=== PATIENT | male | born 1930 | race Caucasian/White ===

== ENCOUNTER 2016-09-05 11:08 | Day surgery (SDC) | payer OTHER, MEDICAID ==
[2016-09-05] MEDS ORDERED: D5 LR 1000 ML 1,000 ML IV ONE (11:15)
[2016-09-05] MEDS ORDERED: DIPRIVAN VIAL 20 ML ONE (11:33)
[2016-09-05 14:04] VITALS: BP 120/60
== END 2016-09-05 12:08 | disposition home or self-care (01) ==
LOC: SURG1 11:08
PROVIDERS: ATTEND Internal Medicine Gastroenterology
PROC: 0DB68ZX Excision of Stomach, Via Natural or Artificial Opening Endoscopic, Diagnostic (ICD-10-PCS; principal; 2016-09-05 14:00)
PROC: 0D757ZZ Dilation of Esophagus, Via Natural or Artificial Opening (ICD-10-PCS; principal; 2016-09-05 14:00)
PROC: 0DJ08ZZ Inspection of Upper Intestinal Tract, Via Natural or Artificial Opening Endoscopic (ICD-10-PCS; principal; 2016-09-05 14:00)
DX: R13.19 Other dysphagia (principal); R10.13 Epigastric pain; K21.9 Gastro-esophageal reflux disease without esophagitis; K22.2 Esophageal obstruction; K44.9 Diaphragmatic hernia without obstruction or gangrene; K29.60 Other gastritis without bleeding; R11.0 Nausea
CPT/HCPCS: 99100; A4217; J3490; J7120

== ENCOUNTER → 2016-10-18 | Outpatient (CLI) | payer OTHER, MEDICAID ==
--- NOTE | 2016-10-18 15:19 | VAS ---
HISTORY: Weakness, vertigo Study: Carotid sonogram Comparison: None Technique: Multiple jane scale and color flow Doppler images of the right and left carotid arterial system were obtained. The vertebral arterial system was evaluated as well. Findings: Mild plaque is present at both carotid bifurcations. Normal color flow Doppler is seen throughout th e right and left carotid arterial system. No hemodynamically significant stenosis is seen based on velocity criteria. The right and left vertebral arteries demonstrate antegrade flow. IMPRESSION: 1. No hemodynamically significant stenosis. Reported By:
== END ==
LOC: RAD 11:57
PROVIDERS: ATTEND Internal Medicine
DX: R42 Dizziness and giddiness (principal); R06.02 Shortness of breath; I20.8 Other forms of angina pectoris
CPT/HCPCS: 93005; 93010; 93880

== ENCOUNTER → 2016-10-24 | Outpatient (CLI) | payer OTHER, MEDICAID | LOC: RAD 13:39 | PROVIDERS: ATTEND Internal Medicine | DX: I20.8 Other forms of angina pectoris (principal) | CPT/HCPCS: 93306 ==

== ENCOUNTER → 2016-11-18 | Outpatient (CLI) | payer OTHER, MEDICAID | LOC: RAD 09:28 | PROVIDERS: ATTEND Internal Medicine | DX: I20.8 Other forms of angina pectoris (principal); R06.02 Shortness of breath | CPT/HCPCS: 78452; 93017; A9502 ==

== ENCOUNTER → 2017-03-05 | Outpatient (CLI) | payer OTHER, MEDICAID ==
--- NOTE | 2017-03-11 10:41 | VAS ---
HISTORY: Peripheral vascular disease Study: Bilateral lower extremity arterial pressure and waveform analysis Comparison: None Findings: Normal ABIs are observed. An ARMIN of 1.06 is observed on the right. ARMIN of 0.95 is observed on the l eft. IMPRESSION: Normal ABIs as above. Reported By:
== END ==
LOC: RAD 15:24
PROVIDERS: ATTEND Internal Medicine
DX: I73.89 Other specified peripheral vascular diseases (principal)
CPT/HCPCS: 93925

== ENCOUNTER → 2017-03-10 | Outpatient (CLI) | payer OTHER, MEDICAID ==
--- NOTE | 2017-03-10 16:17 | RAD ---
Indication: Cough . Exam: PA and lateral chest . Comparison: 04/18/2015 Findings: The heart is normal. The pulmonary vessels are normal. The lungs are mildly hyperinflated b ut clear. Moderate degenerative changes are seen throughout the spine. Impression: Stable chest with no acute abnormality seen. Reported By:
== END ==
LOC: RAD 15:01
PROVIDERS: ATTEND Internal Medicine
DX: R50.9 Fever, unspecified (principal); R05 Cough; R09.89 Other specified symptoms and signs involving the circulatory and respiratory systems; J06.9 Acute upper respiratory infection, unspecified
CPT/HCPCS: 36415; 71020; 80053; 85025; 87040

== ENCOUNTER 2019-03-24 11:48 | Inpatient (IN) ==
[2019-03-24] MEDS ORDERED: TUSSIONEX PENNKINETIC SUSP PO PRN (15:04)
[2019-03-24] MEDS: XOPENEX 1.25 MG/3 ML NEBULE NEB SCH (15:20)
[2019-03-24] MEDS ORDERED: SALINE 3% 15 ML NEB TX NEB ONE (15:20)
[2019-03-24 15:49] LABS: BASOPHILS # (AUTO) 0.1 X10^3/uL (0.0-0.1); BASOPHILS % (AUTO) 0.4 % (0.2-1.0); EOSINOPHILS # (AUTO) 1.2 x10^3/uL (0.0-0.2); EOSINOPHILS % (AUTO) 5.1 % (0.9-2.9); HEMATOCRIT 33.1 % (42.0-54.0); HEMOGLOBIN 10.8 g/dL (13.5-18.0); LYMPHOCYTES # (AUTO) 2.2 X10^3/uL (1.3-2.9); LYMPHOCYTES % (AUTO) 9.6 % (21.0-51.0); MEAN CORPUSCULAR HEMOGLOBIN 30.1 pg (27.0-34.0); MEAN CORPUSCULAR HGB CONC 32.6 g/dL (33.0-35.0); MEAN CORPUSCULAR VOLUME 92.2 fL (80.0-100.0); MEAN PLATELET VOLUME 7.3 fL (7.4-11.0); MONOCYTES # (AUTO) 1.7 x10^3/uL (0.3-0.8); MONOCYTES % (AUTO) 7.4 % (0.0-13.0); NEUTROPHILS # (AUTO) 17.9 x10^3/uL (2.2-4.8); NEUTROPHILS % (AUTO) 77.5 % (42.0-75.0); PLATELET COUNT 351 X10^3/uL (150.0-450.0); RED BLOOD COUNT 3.59 X10^6/uL (4.7-6.0); RED CELL DISTRIBUTION WIDTH 16.4 % (11.6-16.5); WHITE BLOOD COUNT 23.1 X10^3/uL (3.6-10.0)
[2019-03-24] MEDS ORDERED: NS 1/2 1000 ML IV 1,000 ML IV ONE (15:50)
[2019-03-24] MEDS: FORTAZ or TAZICEF VIAL INJ 1 G in NS 100 ML IV + SPIKE MINIBAG* 100 ML IV SCH ×2 (15:55→20:59)
[2019-03-24] MEDS: NS 1/2 1000 ML IV 1,000 ML IV SCH (15:55)
[2019-03-24] MEDS: VSL#3 PO SCH (15:55)
[2019-03-24] MEDS: ROBITUSSIN DM PO SCH ×3 (15:55→20:46)
[2019-03-24 16:00] LABS: ALANINE AMINOTRANSFERASE 13 Units/L (12-78); ALBUMIN 2.5 g/dL (3.4-5.0); ALKALINE PHOSPHATASE 121 Units/L (46-116); ASPARTATE AMINO TRANSFERASE 18 Units/L (15-37); BLOOD UREA NITROGEN 37 mg/dL (7-18); CALCIUM 8.2 mg/dL (8.5-10.1); CARBON DIOXIDE 26.2 mmol/L (21-32); CHLORIDE 105 mmol/L (98-107); COR CA(FOR HYPOALB) 9.4 mg/dL (8.5-10.1); CREATININE 2.12 mg/dL (0.70-1.30); SODIUM 140 mmol/L (136-145); TOTAL PROTEIN 7.1 g/dL (6.4-8.2); eGFR NON BLACK RACES 31 (>60)
--- NOTE | 2019-03-24 16:21 | RAD ---
HISTORYC/C, CHEST PAINSTUDYCHEST, 1 VIEWCOMPARISONChest x-ray dated March 23, 2019.FINDINGSThe trachea is midline. The cardiac silhouette is unremarkable. Right lower lobe pneumonia with associated parapneumonic effusion appears unchanged given technique.. No obvious pneumothorax. Chronic emphysematous changes. The bony thorax is unremarkable.IMPRESSIONNo significant change.Electronically signed by: HE NARVAEZ (Mar 24, 2019 16:20:25)
[2019-03-24 16:30] LABS: BAND NEUTROPHILS % 2 % (0-10); PLATELET MORPHOLOGY COMMENT NORMAL (NORMAL)
[2019-03-24 18:12] VITALS: BMI 26.6
[2019-03-24] MEDS ORDERED: PHARMACY CONSULT LTC MEDICATIONS XX SCH (19:00)
[2019-03-25] MEDS: XOPENEX 1.25 MG/3 ML NEBULE NEB SCH ×4 (01:03→17:56)
[2019-03-25 05:40] LABS: BASOPHILS # (AUTO) 0.1 X10^3/uL (0.0-0.1); BASOPHILS % (AUTO) 0.4 % (0.2-1.0); EOSINOPHILS # (AUTO) 0.9 x10^3/uL (0.0-0.2); EOSINOPHILS % (AUTO) 5.7 % (0.9-2.9); HEMATOCRIT 31.4 % (42.0-54.0); HEMOGLOBIN 10.2 g/dL (13.5-18.0); LYMPHOCYTES # (AUTO) 1.7 X10^3/uL (1.3-2.9); LYMPHOCYTES % (AUTO) 10.3 % (21.0-51.0); MEAN CORPUSCULAR HEMOGLOBIN 29.7 pg (27.0-34.0); MEAN CORPUSCULAR HGB CONC 32.5 g/dL (33.0-35.0); MEAN CORPUSCULAR VOLUME 91.5 fL (80.0-100.0); MEAN PLATELET VOLUME 7.4 fL (7.4-11.0); MONOCYTES # (AUTO) 1.3 x10^3/uL (0.3-0.8); MONOCYTES % (AUTO) 8.3 % (0.0-13.0); NEUTROPHILS # (AUTO) 12.2 x10^3/uL (2.2-4.8); NEUTROPHILS % (AUTO) 75.3 % (42.0-75.0); PLATELET COUNT 342 X10^3/uL (150.0-450.0); RED BLOOD COUNT 3.43 X10^6/uL (4.7-6.0); RED CELL DISTRIBUTION WIDTH 15.6 % (11.6-16.5); WHITE BLOOD COUNT 16.1 X10^3/uL (3.6-10.0)
[2019-03-25 06:05] LABS: ALBUMIN 2.1 g/dL (3.4-5.0); CALCIUM 8.2 mg/dL (8.5-10.1); CARBON DIOXIDE 26.2 mmol/L (21-32); COR CA(FOR HYPOALB) 9.7 mg/dL (8.5-10.1); CREATININE 1.83 mg/dL (0.70-1.30); TOTAL PROTEIN 6.6 g/dL (6.4-8.2)
[2019-03-25] MEDS ORDERED: NS 1/2 1000 ML IV 1,000 ML IV ONE (06:07)
[2019-03-25] MEDS: FORTAZ or TAZICEF VIAL INJ 1 G in NS 100 ML IV + SPIKE MINIBAG* 100 ML IV SCH (06:35)
[2019-03-25] MEDS: NS 1/2 1000 ML IV 1,000 ML IV SCH ×2 (06:35→21:25)
[2019-03-25] MEDS ORDERED: K-RIDER 10 MEQ/NS 100 ML 10 MEQ/100 ML BAG IV PRN (06:52)
[2019-03-25] MEDS ORDERED: KLOR-CON PO PRN (06:52)
[2019-03-25] MEDS ORDERED: POTASSIUM CHL 40 MEQ/NS 0.45% 500 ML IV PRN (06:52)
[2019-03-25] MEDS ORDERED: MICRO K EXTEN CAP 10 MEQ PO PRN (06:52)
[2019-03-25] MEDS ORDERED: POTASSIUM CHLORIDE LIQ 20 MEQ UDC PO PRN (06:52)
[2019-03-25] MEDS ORDERED: POTASSIUM CHL 60 MEQ/NS 0.45% 500 ML IV PRN (06:52)
[2019-03-25] MEDS ORDERED: K-DUR TAB 20 MEQ PO PRN (06:52)
--- NOTE | 2019-03-25 08:54 | DR.H&P ---
H&P - History & Physical for Day of: H&P Date: 03/24/19 - Chief Complaint Chief Complaint: COUGH, SOB - History of Present Illness History of Present Illness: IS A 88 YEAR OLD PATIENT OF OURS. HE IS A RESIDENT OF [facility]. HE WAS A DIRECT ADMISSION TO THE HOSPITAL FOR BRONCHOPNEUMONIA. OUTPATIENT CHEST XRAY WAS OBTAINED AND REVEALED: Right lower lobe bronchopneumonia with a moderate-sized parapneumonic effusion.. Ra diographic follow-up in 6-8 weeks is recommended to ensure resolution and exclude underlying neoplastic process. Questionable acute bronchitis within the left lung base. ON ADMISSION, LABS WERE OBTAINED. ABNORMAL LAB VALUES INCLUDE THE FOLLOWING: WBC 23.1, RBC 3.59, HGB 10.8, HCT 33.1, BUN 37, CREATININE 2.12, GLUCOSE 105, CALCIUM 8.2, ALK PHOS 121, ALBUMIN 2.5, GLOBULIN 4.6. BLOOD AND SPUTUM CULTURES WERE OBTAINED. HE WAS STARTED ON 1/2NS AT 75ML/HR, IV FORTAZ, TUSSIONEX, ROBITUSSION, RESPIRATORY TX, AND SUPPLEMENTAL OXYGEN. WE PLAN TO FOLLOW UP WITH AM LABS AND CHEST XRAY AND CONTINUE TO MONITOR. - Past Medical History Past Medical History: Anemia ([place]), Arthritis, Hypertension - Past Surgical History Surgical History: Cholecystectomy, Joint Replacement, Other - Family History Family Medical History: Hypertension - Social History Does patient currently use any type of tobacco product: No Have you used tobacco products in the last 12 months: No Type of Tobacco Use: Cigarettes How many years tobacco product used: 1 Does any household member use tobacco: No Alcohol Use: None Drug Use: None Prescription drug monitoring program results: PDMP was not reviewed - Medications Home Medications: ciprofloxacin Allergy (Verified 03/24/19 15:07) doxycycline Allergy (Verified 03/24/19 15:07) levofloxacin [From Levaquin] Allergy (Verified 03/24/19 15:07) meloxicam [From Mobic] Allergy (Verified 03/24/19 15:07) CONTINUE taking the following medications alprazolam [Xanax] 0.25 mg PO DAILY 03/24/19 [History] amitriptyline 25 mg PO QHS 03/24/19 [History] anastrozole [Arimidex] 1 mg PO DAILY 03/24/19 [History] biotin 1 mg PO DAILY 03/24/19 [History] budesonide [Pulmicort] 2 ml INHALATION TID 03/24/19 [History] budesonide-formoterol [Symbicort] 2 puff INHALATION BID 03/24/19 [History] buspirone 5 mg PO DAILY 03/24/19 [History] carboxymethylcellulose sodium [Refresh Tears] 1 drp OPHTHALMIC (EYE) BID 03/24/19 [History] diclofenac sodium [Voltaren] 1 % TOPICAL TID 03/24/19 [History] docusate sodium [Colace] 100 mg PO BID 03/24/19 [History] escitalopram oxalate [Lexapro] 5 mg PO DAILY 03/24/19 [History] ferrous fumarate 324 mg PO DAILY 03/24/19 [History] fluticasone propionate [Flonase Allergy Relief] 1 spray INTRANASAL Q12H PRN 03/24/19 [History] gabapentin [Neurontin] 300 mg PO QHS 03/24/19 [History] guaifenesin [Mucinex] 600 mg PO BID 03/24/19 [History] ipratropium-albuterol 3 ml INHALATION Q6H PRN 03/24/19 [History] meclizine 25 mg PO Q6H PRN 03/24/19 [History] montelukast [Singulair] 10 mg PO QHS 03/24/19 [History] multivitamin,tx-minerals [Multi-Vitamin HP/Minerals] 1 cap PO BID 03/24/19 [History] naproxen 500 mg PO BID 03/24/19 [History] baiuigxr-irdnweessRq-hwrgawzaL [Triple Antibiotic] 1 applic TOPICAL BID PRN 03/24/19 [History] pramipexole [Mirapex] 0.25 mg PO TID 03/24/19 [History] tizanidine [Zanaflex] 4 mg PO QHS 03/24/19 [History] - Review of Systems Constitutional: No Symptoms Reported Eyes: No Symptoms Reported ENT: No Symptoms Reported Respiratory: See HPI, Cough, Shortness of Breath, Wheezing Cardiovascular: No Symptoms Reported Gastrointestinal: No Symptoms Reported Genitourinary: No Symptoms Reported Musculoskeletal: No Symptoms Reported Skin: No Symptoms Reported Neurological: No Symptoms Reported - Physical Exam Vital Signs: Temperature 97.9 F Pulse Rate [Right Brachial] 90 Pulse Rate 81 Respiratory Rate 20 Blood Pressure [Right Arm] 107/59 Blood Pressure [Left Arm] 132/69 Blood Pressure 120/60 O2 Sat by Pulse Oximetry 96 Oriented: Normal Eyes: Normal Ear: Normal Nose: Normal Throat: Normal Respiratory: Wheezes Throughout Cardiovascular: Normal. negative: S3, S4, Murmur : Normal Auscultation: Bowel Sounds: Normal Palpation: Normal Tenderness: Normal Skin: Normal Musculoskeletal: Normal Psychiatric: Normal Mood Description: Calm Affect: Normal Speech Pattern: Clear - Assessment/Plan (1) Bronchopneumonia Status: Acute Plan: 1/2NS AT 75ML/HR, IV FORTAZ, TUSSIONEX, ROBITUSSION, RESPIRATORY TX, AND SUPPLEMENTAL OXYGEN - Allergies Allergies/Adverse Reactions: Allergies Allergy/AdvReac Type Severity Reaction Status Date / Time ciprofloxacin Allergy Verified 03/24/19 15:07 doxycycline Allergy Verified 03/24/19 15:07 levofloxacin [From Levaquin] Allergy Verified 03/24/19 15:07 meloxicam [From Mobic] Allergy Verified 03/24/19 15:07
[2019-03-25] MEDS: ROBITUSSIN DM PO SCH ×4 (08:55→20:42)
[2019-03-25] MEDS: VSL#3 PO SCH (08:55)
[2019-03-25] MEDS ORDERED: FORTAZ or TAZICEF VIAL INJ 1 G in NS 100 ML IV + SPIKE MINIBAG* 100 ML IV SCH (09:00)
--- NOTE | 2019-03-25 09:50 | RAD ---
HISTORYBRONCHOPNEUMONIASTUDYCHEST, 1 [id number]/18/2019.FINDINGSThe trachea is midline. The cardiac silhouette is enlarged with atherosclerotic calcification and uncoiling of the aortic arch.. There are emphysematous changes present involving both lungs. Left lung is clear. There is still a dense infiltrate present involving the right middle and lower lobe regions with parapneumonic effusion. This is not changed significantly compared to the prior study.. The bony thorax is unremarkable.IMPRESSIONRight middle and lower lobe infiltrates which appear dense with right parapneumonic effusion. The findings are unchanged from prior studies. Emphysematous changes are present bilaterally.Hypertensive configuration.Electronically signed by: ALIN CHOE (Mar 25, 2019 09:49:49)
[2019-03-25] MEDS ORDERED: ULTRAM PO PRN (10:18)
[2019-03-25] MEDS ORDERED: ANTIVERT TAB 25 MG PO PRN (10:18)
[2019-03-25] MEDS ORDERED: BIOTIN 1 MG PO SCH (10:30)
[2019-03-25] MEDS ORDERED: PULMICORT NEB TX 0.5 MG NEB SCH (10:30)
[2019-03-25] MEDS ORDERED: PATIENT'S HOME MEDICATION (Carboxymethylcellulose Sodium [Refresh Tears] 1 DROP) OP SCH (10:30)
[2019-03-25] MEDS: MUCOMYST 20% 200 MG/ML NEB SCH ×2 (12:16→17:56)
[2019-03-25] MEDS ORDERED: LEXAPRO ONE (12:37)
[2019-03-25] MEDS: FLONASE NASAL SPRAY ENOSTRIL SCH ×2 (12:42→20:43)
[2019-03-25] MEDS: MIRALAX POWDER (1 DOSE 17 G) PO SCH (12:42)
[2019-03-25] MEDS: MUCINEX DM PO SCH ×2 (12:43→20:42)
[2019-03-25] MEDS: FERROUS GLUCONATE PO SCH (12:43)
[2019-03-25] MEDS: ELAVIL PO SCH ×2 (12:43→20:41)
[2019-03-25] MEDS: BUSPAR PO SCH (12:43)
[2019-03-25] MEDS: SINGULAIR TAB 10 MG PO SCH ×2 (12:44→20:41)
[2019-03-25] MEDS: LEXAPRO PO SCH (12:44)
[2019-03-25] MEDS: ARIMIDEX PO SCH (12:44)
[2019-03-25] MEDS: NAPROSYN PO SCH ×2 (12:44→20:42)
[2019-03-25] MEDS: COLACE CAP 100 MG PO SCH ×2 (12:44→20:42)
[2019-03-25] MEDS: EXELON PO SCH ×2 (12:45→20:42)
[2019-03-25] MEDS: ZOSYN VIAL 4.5 GRAMS 4.5 G in NS 100 ML IV + SPIKE MINIBAG* 100 ML IV SCH ×3 (12:46→21:24)
[2019-03-25] MEDS: NEURONTIN CAP 300 MG PO SCH ×2 (12:46→20:41)
[2019-03-25] MEDS ORDERED: MUCOMYST 20% 200 MG/ML NEB SCH (13:00)
[2019-03-25] MEDS: LOPRESSOR TAB 25 MG PO SCH ×2 (13:14→20:41)
[2019-03-25] MEDS: ZANAFLEX PO SCH ×2 (13:29→20:41)
[2019-03-25] MEDS: MIRAPEX TAB 0.25 MG PO SCH ×2 (14:00→21:24)
[2019-03-25] MEDS: XANAX PO SCH (14:00)
[2019-03-25] MEDS: LOVENOX INJ 40 MG SYR SC SCH (14:00)
[2019-03-25] MEDS: VOLTAREN 1 % GEL MULTI DOSE TUBE TOP SCH ×3 (15:21→21:24)
[2019-03-25] MEDS: PULMICORT NEB TX 0.5 MG NEB SCH (21:32)
[2019-03-26] MEDS: XOPENEX 1.25 MG/3 ML NEBULE NEB SCH ×4 (00:47→17:09)
[2019-03-26] MEDS: MUCOMYST 20% 200 MG/ML NEB SCH ×4 (00:48→17:09)
[2019-03-26] MEDS: ZOSYN VIAL 4.5 GRAMS 4.5 G in NS 100 ML IV + SPIKE MINIBAG* 100 ML IV SCH ×3 (05:04→21:50)
[2019-03-26] MEDS: MIRAPEX TAB 0.25 MG PO SCH ×3 (05:04→21:47)
[2019-03-26] MEDS: VOLTAREN 1 % GEL MULTI DOSE TUBE TOP SCH ×4 (05:06→21:51)
[2019-03-26] MEDS ORDERED: NS 1/2 1000 ML IV 1,000 ML IV ONE (05:09)
[2019-03-26] MEDS: NS 1/2 1000 ML IV 1,000 ML IV SCH ×2 (05:09→21:41)
[2019-03-26 05:56] LABS: BASOPHILS # (AUTO) 0.1 X10^3/uL (0.0-0.1); BASOPHILS % (AUTO) 0.4 % (0.2-1.0); EOSINOPHILS # (AUTO) 1.2 x10^3/uL (0.0-0.2); EOSINOPHILS % (AUTO) 8.8 % (0.9-2.9); HEMATOCRIT 30.4 % (42.0-54.0); LYMPHOCYTES # (AUTO) 1.6 X10^3/uL (1.3-2.9); MEAN CORPUSCULAR HEMOGLOBIN 30.2 pg (27.0-34.0); MEAN CORPUSCULAR HGB CONC 32.9 g/dL (33.0-35.0); MEAN CORPUSCULAR VOLUME 91.9 fL (80.0-100.0); MONOCYTES # (AUTO) 1.2 x10^3/uL (0.3-0.8); MONOCYTES % (AUTO) 8.9 % (0.0-13.0); NEUTROPHILS # (AUTO) 9.2 x10^3/uL (2.2-4.8); NEUTROPHILS % (AUTO) 69.9 % (42.0-75.0); PLATELET COUNT 313 X10^3/uL (150.0-450.0); RED BLOOD COUNT 3.31 X10^6/uL (4.7-6.0); RED CELL DISTRIBUTION WIDTH 16.1 % (11.6-16.5); WHITE BLOOD COUNT 13.1 X10^3/uL (3.6-10.0)
[2019-03-26 06:09] LABS: CALCIUM 8.1 mg/dL (8.5-10.1); CARBON DIOXIDE 25.2 mmol/L (21-32); COR CA(FOR HYPOALB) 9.7 mg/dL (8.5-10.1); CREATININE 1.7 mg/dL (0.70-1.30); TOTAL PROTEIN 6.5 g/dL (6.4-8.2)
[2019-03-26] MEDS ORDERED: LEXAPRO ONE (08:33)
[2019-03-26] MEDS: MIRALAX POWDER (1 DOSE 17 G) PO SCH (08:57)
[2019-03-26] MEDS: VSL#3 PO SCH (08:58)
[2019-03-26] MEDS: MUCINEX DM PO SCH ×2 (08:59→21:45)
[2019-03-26] MEDS: LOVENOX INJ 40 MG SYR SC SCH (08:59)
[2019-03-26] MEDS: ROBITUSSIN DM PO SCH ×4 (08:59→21:45)
[2019-03-26] MEDS: EXELON PO SCH ×2 (08:59→21:45)
[2019-03-26] MEDS: COLACE CAP 100 MG PO SCH ×2 (08:59→21:42)
[2019-03-26] MEDS: BUSPAR PO SCH (09:00)
[2019-03-26] MEDS: LEXAPRO PO SCH (09:00)
[2019-03-26] MEDS: XANAX PO SCH (09:01)
[2019-03-26] MEDS: LOPRESSOR TAB 25 MG PO SCH ×2 (09:01→21:45)
[2019-03-26] MEDS: NAPROSYN PO SCH ×2 (09:01→21:45)
[2019-03-26] MEDS: FLONASE NASAL SPRAY ENOSTRIL SCH ×2 (09:02→21:49)
[2019-03-26] MEDS: FERROUS GLUCONATE PO SCH (09:02)
[2019-03-26] MEDS: ARIMIDEX PO SCH (09:02)
[2019-03-26] MEDS: PULMICORT NEB TX 0.5 MG NEB SCH ×2 (09:39→20:35)
--- NOTE | 2019-03-26 09:44 | RAD ---
HISTORYSOBSTUDYCHEST, 1 [id number]/19/2019.FINDINGSThe trachea is midline. The heart is enlarged with aortic uncoiling. Left lung is clear.. There is improving aeration seen in right middle and lower lobe regions. There is still considerable dense atelectasis or infiltrate present. A small right-sided pleural effusion may be present. Right upper lobe is clear. The bony thorax is unremarkable.IMPRESSIONImproving aeration seen in the right middle and lower lobe regions. There is still considerable dense atelectasis or infiltrate present.Cardiac enlargement with aortic uncoiling.Electronically signed by: ALIN CHOE (Mar 26, 2019 09:43:21)
--- NOTE | 2019-03-26 11:00 | PCM.PROG ---
Progress Note - Progress Note for Day of Date of Exam: 03/26/19 - Subjective Subjective: IS BEING TREATED FOR PNEUMONIA. TODAY, HE IS ALERT AND ORIENTED, SITTING ON THE SIDE OF THE BED ON MORNING ROUNDS. HE CONTINUES WITH COUGH AND SHORTNESS OF BREATH. ON EXAMINATION, HEART IS REGULAR IN RATE AND RHYTHM. BILATERAL LUNGS ARE NOTED WITH SCATTERED WHEEZING. ABDOMEN IS ROUND, SOFT, AND NON-TENDER WITH NORMAL BOWEL SOUNDS NOTED IN ALL QUADRANTS. HIS VITALS THIS MORNING ARE: 97.9-80-20-100%-143/66. LABS WERE OBTAINED. ABNORMAL LAB VALUES INCLUDE THE FOLLOWING: WBC 13.1, RBC 3.31, HGB 10.0, HCT 30.4, BUN 28, CREATININE 1.70, GLUCOSE 120, CALCIUM 8.1, ALT 11, ALBUMIN 2.0. BLOOD CULTURES ARE PENDING. SPUTUM CULTURE REVEALED GROWTH OF STAPHYLOCOCCUS AUREUS. A CHEST XRAY WAS OBTAINED AND REVEALED: Improving aeration seen in the right middle and lower lobe regions. There is still considerable dense atelectasis or infiltrate present. Cardiac enlargement with aortic uncoiling. HE IS CURRENTLY RECIVING IV ZOSYN, RESPIRATORY TX, SUPPLEMENTAL OXYGEN, AND HOME MEDICATIONS WERE RESUMED. WE WILL CONTINUE WITH CURRENT PLAN OF CARE TODAY. OTHERWISE, WE PLAN TO FOLLOW UP WITH AM LABS AND CHEST XRAY AND CONTINUE TO MONITOR. - Past Medical Family Social History Past Med/Fam/Surg Hx: No changes since H&P Allergies: Allergies ciprofloxacin Allergy (Verified 03/24/19 15:07) doxycycline Allergy (Verified 03/24/19 15:07) levofloxacin [From Levaquin] Allergy (Verified 03/24/19 15:07) meloxicam [From Mobic] Allergy (Verified 03/24/19 15:07) - Review of Systems ROS: No change since H&P - Vital Signs and I&O's Vital Signs: Temperature 97.9 F Pulse Rate [Right Brachial] 80 Pulse Rate 80 Respiratory Rate 20 Blood Pressure [Right Arm] 143/66 Blood Pressure [Left Arm] 132/69 Blood Pressure 120/60 O2 Sat by Pulse Oximetry 99 Intake and Output: Intake & Output 03/23/19 03/24/19 03/25/19 03/26/19 11:59 11:59 11:59 11:59 Intake Total 1642 / 1642 2325 / 2325 Output Total 0 / 0 Balance 1642 / 1642 2325 / 2325 - Physical Exam Oriented: Normal Eyes: Normal Ear: Normal Nose: Normal Throat: Normal Respiratory: Generalized, Wheezes Cardiovascular: Normal. negative: S3, S4, Murmur : Normal Auscultation: Bowel Sounds: Normal Tenderness: Normal Skin: Normal Musculoskeletal: Normal Psychiatric: Normal Mood Description: Calm Affect: Normal Speech Pattern: Clear, Appropriate - Laboratory and Diagnostics Result Diagrams: 03/26/19 05:42 03/26/19 05:42 Labs: 03/24/19 15:25 Sputum - Expectorated Sputum Sputum Culture - Preliminary Staphylococcus Aureus 03/24/19 15:25 Sputum - Expectorated Sputum - Final Laboratory WBC 13.1 X10^3/uL (3.6-10.0) H 03/26/19 05:42 RBC 3.31 X10^6/uL (4.7-6.0) L 03/26/19 05:42 Hgb 10.0 g/dL (13.5-18.0) L 03/26/19 05:42 Hct 30.4 % (42.0-54.0) L 03/26/19 05:42 MCV 91.9 fL (80.0-100.0) 03/26/19 05:42 MCH 30.2 pg (27.0-34.0) 03/26/19 05:42 MCHC 32.9 g/dL (33.0-35.0) L 03/26/19 05:42 RDW 16.1 % (11.6-16.5) 03/26/19 05:42 Plt Count 313 X10^3/uL (150.0-450.0) 03/26/19 05:42 Plt Count Comment Adequate (ADEQUATE) 03/24/19 15:30 MPV 7.0 fL (7.4-11.0) L 03/26/19 05:42 Neut % (Auto) 69.9 % (42.0-75.0) 03/26/19 05:42 Lymph % (Auto) 12.0 % (21.0-51.0) L 03/26/19 05:42 [place] % (Auto) 8.9 % (0.0-13.0) 03/26/19 05:42 Eos % (Auto) 8.8 % (0.9-2.9) H 03/26/19 05:42 Baso % (Auto) 0.4 % (0.2-1.0) 03/26/19 05:42 Neut # (Auto) 9.2 x10^3/uL (2.2-4.8) H 03/26/19 05:42 Lymph # (Auto) 1.6 X10^3/uL (1.3-2.9) 03/26/19 05:42 [place] # (Auto) 1.2 x10^3/uL (0.3-0.8) H 03/26/19 05:42 Eos # (Auto) 1.2 x10^3/uL (0.0-0.2) H 03/26/19 05:42 Baso # (Auto) 0.1 X10^3/uL (0.0-0.1) 03/26/19 05:42 Absolute Nucleated RBC 0.0 /100WBC 03/26/19 05:42 Total Counted 100 03/24/19 15:30 Neutrophils % (Manual) 83 % (39-76) H 03/24/19 15:30 Band Neutrophils % 2 % (0-10) 03/24/19 15:30 Lymphocytes % (Manual) 9 % (13-43) L 03/24/19 15:30 Monocytes % (Manual) 4 % (4-9) 03/24/19 15:30 Eosinophils % (Manual) 2 % (0-6) 03/24/19 15:30 Plt Morphology Comment Normal (NORMAL) 03/24/19 15:30 RBC Morphology Normal (NORMAL) 03/24/19 15:30 Sodium 139 mmol/L (136-145) 03/26/19 05:42 Corrected Sodium 139 mmol/L (136-145) 03/26/19 05:42 Potassium 4.0 mmol/L (3.5-5.1) 03/26/19 05:42 Chloride 105 mmol/L (98-107) 03/26/19 05:42 Carbon Dioxide 25.2 mmol/L (21-32) 03/26/19 05:42 BUN 28 mg/dL (7-18) H 03/26/19 05:42 Creatinine 1.70 mg/dL (0.70-1.30) H 03/26/19 05:42 Est GFR (MDRD) Af Amer 49 (>60) L 03/26/19 05:42 Est GFR (MDRD) Non-Af 41 (>60) L 03/26/19 05:42 Glucose 120 mg/dL (65-99) H 03/26/19 05:42 Calcium 8.1 mg/dL (8.5-10.1) L 03/26/19 05:42 Corrected Calcium 9.7 mg/dL (8.5-10.1) 03/26/19 05:42 Magnesium 1.9 mg/dL (1.7-2.9) 03/25/19 05:06 Total Bilirubin 0.60 mg/dL (0.2-1.0) 03/26/19 05:42 AST 20 Units/L (15-37) 03/26/19 05:42 ALT 11 Units/L (12-78) L 03/26/19 05:42 Alkaline Phosphatase 107 Units/L (46-116) 03/26/19 05:42 Total Protein 6.5 g/dL (6.4-8.2) 03/26/19 05:42 Albumin 2.0 g/dL (3.4-5.0) L 03/26/19 05:42 Globulin 4.5 g/dL (2.5-4.5) 03/26/19 05:42 Albumin/Globulin Ratio 0.4 Ratio (1.1-2.1) L 03/26/19 05:42 - Plan (1) Bronchopneumonia Status: Acute Plan: 1/2NS AT 75ML/HR, IV ZOSYN, TUSSIONEX, ROBITUSSION, RESPIRATORY TX, AND SUPPLEMENTAL OXYGEN
[2019-03-26] MEDS ORDERED: BUTT CREAM (COMPOUND) TOP PRN (14:25)
[2019-03-26] MEDS: ZANAFLEX PO SCH (21:45)
[2019-03-26] MEDS: NEURONTIN CAP 300 MG PO SCH (21:45)
[2019-03-26] MEDS: ELAVIL PO SCH (21:45)
[2019-03-26] MEDS: SINGULAIR TAB 10 MG PO SCH (21:47)
[2019-03-27] MEDS: XOPENEX 1.25 MG/3 ML NEBULE NEB SCH ×4 (00:20→17:10)
[2019-03-27] MEDS: MUCOMYST 20% 200 MG/ML NEB SCH ×4 (00:20→17:10)
[2019-03-27] MEDS: NS 1/2 1000 ML IV 1,000 ML IV SCH ×2 (03:23→13:35)
[2019-03-27 06:22] LABS: BASOPHILS # (AUTO) 0.1 X10^3/uL (0.0-0.1); BASOPHILS % (AUTO) 0.5 % (0.2-1.0); EOSINOPHILS # (AUTO) 1.5 x10^3/uL (0.0-0.2); EOSINOPHILS % (AUTO) 12.2 % (0.9-2.9); HEMATOCRIT 31.8 % (42.0-54.0); HEMOGLOBIN 10.3 g/dL (13.5-18.0); LYMPHOCYTES # (AUTO) 1.7 X10^3/uL (1.3-2.9); LYMPHOCYTES % (AUTO) 13.5 % (21.0-51.0); MEAN CORPUSCULAR HEMOGLOBIN 29.8 pg (27.0-34.0); MEAN CORPUSCULAR HGB CONC 32.4 g/dL (33.0-35.0); MEAN CORPUSCULAR VOLUME 91.9 fL (80.0-100.0); MONOCYTES % (AUTO) 8.2 % (0.0-13.0); NEUTROPHILS # (AUTO) 8.2 x10^3/uL (2.2-4.8); NEUTROPHILS % (AUTO) 65.6 % (42.0-75.0); PLATELET COUNT 363 X10^3/uL (150.0-450.0); RED BLOOD COUNT 3.46 X10^6/uL (4.7-6.0); WHITE BLOOD COUNT 12.4 X10^3/uL (3.6-10.0)
[2019-03-27 06:39] LABS: ALBUMIN 2.2 g/dL (3.4-5.0); CHLORIDE 107 mmol/L (98-107); SODIUM 141 mmol/L (136-145)
[2019-03-27] MEDS: MIRAPEX TAB 0.25 MG PO SCH ×3 (06:48→21:00)
[2019-03-27] MEDS: VOLTAREN 1 % GEL MULTI DOSE TUBE TOP SCH ×4 (06:49→21:45)
[2019-03-27] MEDS: ZOSYN VIAL 4.5 GRAMS 4.5 G in NS 100 ML IV + SPIKE MINIBAG* 100 ML IV SCH ×3 (06:49→21:09)
[2019-03-27 07:12] LABS: ALANINE AMINOTRANSFERASE 13 Units/L (12-78); ALKALINE PHOSPHATASE 104 Units/L (46-116); ASPARTATE AMINO TRANSFERASE 22 Units/L (15-37); BLOOD UREA NITROGEN 21 mg/dL (7-18); CALCIUM 8.4 mg/dL (8.5-10.1); CARBON DIOXIDE 24.5 mmol/L (21-32); COR CA(FOR HYPOALB) 9.8 mg/dL (8.5-10.1); CREATININE 1.56 mg/dL (0.70-1.30); TOTAL PROTEIN 6.8 g/dL (6.4-8.2); eGFR NON BLACK RACES 45 (>60)
[2019-03-27] MEDS: PULMICORT NEB TX 0.5 MG NEB SCH ×2 (08:24→21:23)
[2019-03-27] MEDS: VSL#3 PO SCH (10:00)
[2019-03-27] MEDS: NAPROSYN PO SCH ×2 (10:00→21:00)
[2019-03-27] MEDS: EXELON PO SCH ×2 (10:00→21:03)
[2019-03-27] MEDS: BUSPAR PO SCH (10:00)
[2019-03-27] MEDS: MUCINEX DM PO SCH ×2 (10:00→21:03)
[2019-03-27] MEDS: XANAX PO SCH (10:00)
[2019-03-27] MEDS: LOVENOX INJ 40 MG SYR SC SCH (10:00)
[2019-03-27] MEDS ORDERED: LEXAPRO ONE (10:00)
[2019-03-27] MEDS: ROBITUSSIN DM PO SCH ×4 (10:00→21:00)
[2019-03-27] MEDS: LOPRESSOR TAB 25 MG PO SCH ×2 (10:00→21:02)
[2019-03-27] MEDS: FERROUS GLUCONATE PO SCH (10:00)
[2019-03-27] MEDS: ARIMIDEX PO SCH (10:00)
[2019-03-27] MEDS: LEXAPRO PO SCH (10:00)
[2019-03-27] MEDS: FLONASE NASAL SPRAY ENOSTRIL SCH ×2 (10:00→21:04)
[2019-03-27] MEDS: COLACE CAP 100 MG PO SCH ×2 (10:18→20:59)
[2019-03-27] MEDS: MIRALAX POWDER (1 DOSE 17 G) PO SCH (10:24)
[2019-03-27] MEDS ORDERED: NS 1/2 1000 ML IV 1,000 ML IV ONE (13:28)
--- NOTE | 2019-03-27 15:32 | PCM.PROG ---
Progress Note - Progress Note for Day of Date of Exam: 03/27/19 - Subjective Subjective: IS BEING TREATED FOR PNEUMONIA. TODAY, HE IS ALERT AND ORIENTED, SITTING ON THE SIDE OF THE BED ON MORNING ROUNDS. HE CONTINUES WITH COUGH AND SHORTNESS OF BREATH. ON EXAMINATION, HEART IS REGULAR IN RATE AND RHYTHM. BILATERAL LUNGS ARE NOTED WITH SCATTERED WHEEZING. ABDOMEN IS ROUND, SOFT, AND NON-TENDER WITH NORMAL BOWEL SOUNDS NOTED IN ALL QUADRANTS. HIS VITALS THIS MORNING ARE: 98.3-86-18-98%-125/58. LABS WERE OBTAINED. ABNORMAL LAB VALUES INCLUDE THE FOLLOWING: WBC 12.4, RBC 3.46, HGB 10.3, HCT 31.8, BUN 21, CREATININE 1.56, GLUCOSE 103, CALCIUM 8.4, ALBUMIN 2.2, GLOBULIN 4.6. BLOOD CULTURES ARE PENDING. SPUTUM CULTURE REVEALED GROWTH OF STAPHYLOCOCCUS AUREUS AND STREPTOCOCCUS PNEUMONIAE. HE IS CURRENTLY RECIVING IV ZOSYN, RESPIRATORY TX, SUPPLEMENTAL OXYGEN, AND HOME MEDICATIONS WERE RESUMED. WE WILL CONTINUE WITH CURRENT PLAN OF CARE TODAY. OTHERWISE, WE PLAN TO FOLLOW UP WITH AM LABS AND CHEST XRAY AND CONTINUE TO MONITOR. - Past Medical Family Social History Past Med/Fam/Surg Hx: No changes since H&P Allergies: Allergies ciprofloxacin Allergy (Verified 03/24/19 15:07) doxycycline Allergy (Verified 03/24/19 15:07) levofloxacin [From Levaquin] Allergy (Verified 03/24/19 15:07) meloxicam [From Mobic] Allergy (Verified 03/24/19 15:07) - Review of Systems ROS: No change since H&P - Vital Signs and I&O's Vital Signs: Temperature 98.3 F Pulse Rate [Right Brachial] 79 Pulse Rate 84 Respiratory Rate 18 Blood Pressure [Right Arm] 139/64 Blood Pressure [Left Arm] 131/68 Blood Pressure 120/60 O2 Sat by Pulse Oximetry 97 Intake and Output: Intake & Output 03/25/19 03/26/19 03/27/19 03/28/19 11:59 11:59 11:59 11:59 Intake Total 1642 / 1642 2325 / 2325 2390 / 2390 Output Total 0 / 0 Balance 1642 / 1642 2325 / 2325 2390 / 2390 - Physical Exam Oriented: Normal Eyes: Normal Ear: Normal Nose: Normal Throat: Normal Respiratory: Generalized, Wheezes Cardiovascular: Normal. negative: S3, S4, Murmur : Normal Auscultation: Bowel Sounds: Normal Tenderness: Normal Skin: Normal Musculoskeletal: Normal Psychiatric: Normal Mood Description: Calm Affect: Normal Speech Pattern: Clear, Appropriate - Laboratory and Diagnostics Result Diagrams: 03/27/19 05:30 03/27/19 05:30 Labs: 03/24/19 15:25 Sputum - Expectorated Sputum Sputum Culture - Final Staphylococcus Aureus Streptococcus Pneumoniae 03/24/19 15:25 Sputum - Expectorated Sputum - Final 03/24/19 15:35 Blood Blood Culture - Preliminary 03/24/19 15:30 Blood Blood Culture - Preliminary Laboratory WBC 12.4 X10^3/uL (3.6-10.0) H 03/27/19 05:30 RBC 3.46 X10^6/uL (4.7-6.0) L 03/27/19 05:30 Hgb 10.3 g/dL (13.5-18.0) L 03/27/19 05:30 Hct 31.8 % (42.0-54.0) L 03/27/19 05:30 MCV 91.9 fL (80.0-100.0) 03/27/19 05:30 MCH 29.8 pg (27.0-34.0) 03/27/19 05:30 MCHC 32.4 g/dL (33.0-35.0) L 03/27/19 05:30 RDW 16.0 % (11.6-16.5) 03/27/19 05:30 Plt Count 363 X10^3/uL (150.0-450.0) 03/27/19 05:30 Plt Count Comment Adequate (ADEQUATE) 03/24/19 15:30 MPV 7.0 fL (7.4-11.0) L 03/27/19 05:30 Neut % (Auto) 65.6 % (42.0-75.0) 03/27/19 05:30 Lymph % (Auto) 13.5 % (21.0-51.0) L 03/27/19 05:30 [place] % (Auto) 8.2 % (0.0-13.0) 03/27/19 05:30 Eos % (Auto) 12.2 % (0.9-2.9) H 03/27/19 05:30 Baso % (Auto) 0.5 % (0.2-1.0) 03/27/19 05:30 Neut # (Auto) 8.2 x10^3/uL (2.2-4.8) H 03/27/19 05:30 Lymph # (Auto) 1.7 X10^3/uL (1.3-2.9) 03/27/19 05:30 [place] # (Auto) 1.0 x10^3/uL (0.3-0.8) H 03/27/19 05:30 Eos # (Auto) 1.5 x10^3/uL (0.0-0.2) H 03/27/19 05:30 Baso # (Auto) 0.1 X10^3/uL (0.0-0.1) 03/27/19 05:30 Absolute Nucleated RBC 0.0 /100WBC 03/27/19 05:30 Total Counted 100 03/24/19 15:30 Neutrophils % (Manual) 83 % (39-76) H 03/24/19 15:30 Band Neutrophils % 2 % (0-10) 03/24/19 15:30 Lymphocytes % (Manual) 9 % (13-43) L 03/24/19 15:30 Monocytes % (Manual) 4 % (4-9) 03/24/19 15:30 Eosinophils % (Manual) 2 % (0-6) 03/24/19 15:30 Plt Morphology Comment Normal (NORMAL) 03/24/19 15:30 RBC Morphology Normal (NORMAL) 03/24/19 15:30 Sodium 141 mmol/L (136-145) 03/27/19 05:30 Corrected Sodium TNP 03/27/19 05:30 Potassium 3.9 mmol/L (3.5-5.1) 03/27/19 05:30 Chloride 107 mmol/L (98-107) 03/27/19 05:30 Carbon Dioxide 24.5 mmol/L (21-32) 03/27/19 05:30 BUN 21 mg/dL (7-18) H 03/27/19 05:30 Creatinine 1.56 mg/dL (0.70-1.30) H 03/27/19 05:30 Est GFR (MDRD) Af Amer 54 (>60) L 03/27/19 05:30 Est GFR (MDRD) Non-Af 45 (>60) L 03/27/19 05:30 Glucose 103 mg/dL (65-99) H 03/27/19 05:30 Calcium 8.4 mg/dL (8.5-10.1) L 03/27/19 05:30 Corrected Calcium 9.8 mg/dL (8.5-10.1) 03/27/19 05:30 Magnesium 1.9 mg/dL (1.7-2.9) 03/25/19 05:06 Total Bilirubin 0.60 mg/dL (0.2-1.0) 03/27/19 05:30 AST 22 Units/L (15-37) 03/27/19 05:30 ALT 13 Units/L (12-78) 03/27/19 05:30 Alkaline Phosphatase 104 Units/L (46-116) 03/27/19 05:30 Total Protein 6.8 g/dL (6.4-8.2) 03/27/19 05:30 Albumin 2.2 g/dL (3.4-5.0) L 03/27/19 05:30 Globulin 4.6 g/dL (2.5-4.5) H 03/27/19 05:30 Albumin/Globulin Ratio 0.5 Ratio (1.1-2.1) L 03/27/19 05:30 - Plan (1) Bronchopneumonia Status: Acute Plan: 1/2NS AT 75ML/HR, IV ZOSYN, TUSSIONEX, ROBITUSSION, RESPIRATORY TX, AND SUPPLEMENTAL OXYGEN
--- NOTE | 2019-03-27 18:19 | RAD ---
HISTORYSOBSTUDYCHEST, 1 VIEWCOMPARISONDecember 2018FINDINGSThe trachea is midline. The cardiac silhouette is enlarged. Infiltrate is again noted within the right lower lobe. A small right-sided pleural effusion cannot be excluded.IMPRESSIONCardiomegaly.Right basilar airspace disease as noted above.Electronically signed by: SANDIE AGUAYO (Mar 27, 2019 18:18:24)
[2019-03-27] MEDS: NEURONTIN CAP 300 MG PO SCH (21:01)
[2019-03-27] MEDS: SINGULAIR TAB 10 MG PO SCH (21:01)
[2019-03-27] MEDS: ZANAFLEX PO SCH (21:01)
[2019-03-27] MEDS: ELAVIL PO SCH (21:02)
[2019-03-28] MEDS: XOPENEX 1.25 MG/3 ML NEBULE NEB SCH ×4 (00:40→17:02)
[2019-03-28] MEDS: MUCOMYST 20% 200 MG/ML NEB SCH ×2 (00:40→05:32)
[2019-03-28] MEDS: NS 1/2 1000 ML IV 1,000 ML IV SCH ×2 (04:41→18:24)
[2019-03-28] MEDS: MIRAPEX TAB 0.25 MG PO SCH ×3 (05:30→21:43)
[2019-03-28] MEDS: VOLTAREN 1 % GEL MULTI DOSE TUBE TOP SCH ×3 (05:31→21:43)
[2019-03-28] MEDS: ZOSYN VIAL 4.5 GRAMS 4.5 G in NS 100 ML IV + SPIKE MINIBAG* 100 ML IV SCH ×3 (05:31→21:02)
[2019-03-28 06:09] LABS: BASOPHILS # (AUTO) 0.1 X10^3/uL (0.0-0.1); BASOPHILS % (AUTO) 0.7 % (0.2-1.0); EOSINOPHILS # (AUTO) 1.4 x10^3/uL (0.0-0.2); EOSINOPHILS % (AUTO) 11.4 % (0.9-2.9); HEMATOCRIT 29.9 % (42.0-54.0); HEMOGLOBIN 9.9 g/dL (13.5-18.0); LYMPHOCYTES # (AUTO) 1.7 X10^3/uL (1.3-2.9); LYMPHOCYTES % (AUTO) 13.8 % (21.0-51.0); MEAN CORPUSCULAR HEMOGLOBIN 30.2 pg (27.0-34.0); MEAN CORPUSCULAR HGB CONC 32.9 g/dL (33.0-35.0); MEAN CORPUSCULAR VOLUME 91.7 fL (80.0-100.0); MEAN PLATELET VOLUME 7.3 fL (7.4-11.0); MONOCYTES # (AUTO) 1.2 x10^3/uL (0.3-0.8); MONOCYTES % (AUTO) 9.3 % (0.0-13.0); NEUTROPHILS # (AUTO) 8.1 x10^3/uL (2.2-4.8); NEUTROPHILS % (AUTO) 64.8 % (42.0-75.0); PLATELET COUNT 370 X10^3/uL (150.0-450.0); RED BLOOD COUNT 3.26 X10^6/uL (4.7-6.0); RED CELL DISTRIBUTION WIDTH 16.1 % (11.6-16.5); WHITE BLOOD COUNT 12.5 X10^3/uL (3.6-10.0)
[2019-03-28 06:36] LABS: ALANINE AMINOTRANSFERASE 13 Units/L (12-78); ALKALINE PHOSPHATASE 90 Units/L (46-116); ASPARTATE AMINO TRANSFERASE 21 Units/L (15-37); BLOOD UREA NITROGEN 17 mg/dL (7-18); CALCIUM 8.1 mg/dL (8.5-10.1); CHLORIDE 108 mmol/L (98-107); COR CA(FOR HYPOALB) 9.7 mg/dL (8.5-10.1); CREATININE 1.51 mg/dL (0.70-1.30); SODIUM 142 mmol/L (136-145); TOTAL PROTEIN 6.4 g/dL (6.4-8.2); eGFR NON BLACK RACES 47 (>60)
[2019-03-28] MEDS: PULMICORT NEB TX 0.5 MG NEB SCH ×2 (08:04→20:52)
[2019-03-28] MEDS ORDERED: LEXAPRO ONE (09:22)
[2019-03-28] MEDS: LOVENOX INJ 40 MG SYR SC SCH (09:38)
[2019-03-28] MEDS: MUCINEX DM PO SCH ×2 (09:39→20:36)
[2019-03-28] MEDS: EXELON PO SCH ×2 (09:39→20:36)
[2019-03-28] MEDS: XANAX PO SCH (09:39)
[2019-03-28] MEDS: NAPROSYN PO SCH ×2 (09:39→20:35)
[2019-03-28] MEDS: ARIMIDEX PO SCH (09:39)
[2019-03-28] MEDS: FERROUS GLUCONATE PO SCH (09:39)
[2019-03-28] MEDS: VSL#3 PO SCH (09:39)
[2019-03-28] MEDS: ROBITUSSIN DM PO SCH ×4 (09:39→20:37)
[2019-03-28] MEDS: FLONASE NASAL SPRAY ENOSTRIL SCH ×2 (09:40→20:45)
[2019-03-28] MEDS: LOPRESSOR TAB 25 MG PO SCH ×2 (09:41→20:34)
[2019-03-28] MEDS: BUSPAR PO SCH (09:42)
[2019-03-28] MEDS: LEXAPRO PO SCH (09:44)
--- NOTE | 2019-03-28 10:00 | RAD ---
HISTORYShortness of breathSTUDYCHEST, 1 [id number]/21/2019FINDINGSCardiac silhouette and pulmonary vasculature are unchanged. Moderate right basilar airspace opacity is similar. No new consolidation. No evidence of pneumothorax.IMPRESSIONStable right basilar airspace disease.Electronically signed by: Mervin Beaver (Mar 28, 2019 09:59:01)
[2019-03-28] MEDS: MIRALAX POWDER (1 DOSE 17 G) PO SCH (10:39)
[2019-03-28] MEDS: COLACE CAP 100 MG PO SCH ×2 (10:39→20:34)
[2019-03-28] MEDS ORDERED: NS 1/2 1000 ML IV 1,000 ML IV ONE (18:19)
[2019-03-28] MEDS: NEURONTIN CAP 300 MG PO SCH (20:34)
[2019-03-28] MEDS: SINGULAIR TAB 10 MG PO SCH (20:36)
[2019-03-28] MEDS: ZANAFLEX PO SCH (20:36)
[2019-03-28] MEDS: ELAVIL PO SCH (20:36)
[2019-03-29] MEDS: XOPENEX 1.25 MG/3 ML NEBULE NEB SCH ×2 (00:58→05:06)
[2019-03-29] MEDS ORDERED: NS 1/2 1000 ML IV 1,000 ML IV ONE (05:43)
[2019-03-29 06:10] LABS: BASOPHILS # (AUTO) 0.1 X10^3/uL (0.0-0.1); BASOPHILS % (AUTO) 0.5 % (0.2-1.0); EOSINOPHILS # (AUTO) 1.4 x10^3/uL (0.0-0.2); EOSINOPHILS % (AUTO) 10.1 % (0.9-2.9); HEMATOCRIT 30.1 % (42.0-54.0); LYMPHOCYTES # (AUTO) 2.2 X10^3/uL (1.3-2.9); MEAN CORPUSCULAR HEMOGLOBIN 30.3 pg (27.0-34.0); MEAN CORPUSCULAR HGB CONC 33.1 g/dL (33.0-35.0); MEAN CORPUSCULAR VOLUME 91.6 fL (80.0-100.0); MEAN PLATELET VOLUME 6.9 fL (7.4-11.0); MONOCYTES % (AUTO) 7.5 % (0.0-13.0); NEUTROPHILS # (AUTO) 9.1 x10^3/uL (2.2-4.8); NEUTROPHILS % (AUTO) 65.9 % (42.0-75.0); PLATELET COUNT 368 X10^3/uL (150.0-450.0); RED BLOOD COUNT 3.29 X10^6/uL (4.7-6.0); RED CELL DISTRIBUTION WIDTH 15.6 % (11.6-16.5); WHITE BLOOD COUNT 13.8 X10^3/uL (3.6-10.0)
[2019-03-29 06:15] LABS: ALANINE AMINOTRANSFERASE 16 Units/L (12-78); ALKALINE PHOSPHATASE 83 Units/L (46-116); ASPARTATE AMINO TRANSFERASE 32 Units/L (15-37); BLOOD UREA NITROGEN 15 mg/dL (7-18); CALCIUM 8.1 mg/dL (8.5-10.1); CARBON DIOXIDE 24.8 mmol/L (21-32); CHLORIDE 106 mmol/L (98-107); COR CA(FOR HYPOALB) 9.7 mg/dL (8.5-10.1); CREATININE 1.42 mg/dL (0.70-1.30); SODIUM 139 mmol/L (136-145); TOTAL PROTEIN 6.4 g/dL (6.4-8.2); eGFR NON BLACK RACES 50 (>60)
[2019-03-29] MEDS: MIRAPEX TAB 0.25 MG PO SCH (06:20)
[2019-03-29] MEDS: NS 1/2 1000 ML IV 1,000 ML IV SCH (06:21)
[2019-03-29] MEDS: VOLTAREN 1 % GEL MULTI DOSE TUBE TOP SCH (06:21)
[2019-03-29] MEDS: ZOSYN VIAL 4.5 GRAMS 4.5 G in NS 100 ML IV + SPIKE MINIBAG* 100 ML IV SCH (06:22)
--- NOTE | 2019-03-29 08:03 | RAD ---
HISTORYSOBSTUDYCHEST, 1 VIEWCOMPARISONChest film March 28, 2019.FINDINGSThe trachea is midline. The cardiac silhouette is unremarkable. There is persistent infiltrate in the right lung base unchanged from the prior day's film. The left lung remains clear. There is no effusion.. The bony thorax is unremarkable.IMPRESSIONPersistent infiltrate right lung base unchanged from prior day's film March 28, 2019. There is been minimal worsening compared to the 24 of March and 23 March most consistent with pneumonia.Electronically signed by: TRUMAN REYES (Mar 29, 2019 08:03:03)
[2019-03-29] MEDS ORDERED: LEXAPRO ONE (08:08)
--- NOTE | 2019-03-29 08:40 | PCM.PROG ---
Progress Note - Progress Note for Day of Date of Exam: 03/28/19 - Subjective Subjective: IS BEING TREATED FOR PNEUMONIA. TODAY, HE IS ALERT AND ORIENTED, SITTING ON THE SIDE OF THE BED ON MORNING ROUNDS. HE CONTINUES WITH COUGH AND SHORTNESS OF BREATH. ON EXAMINATION, HEART IS REGULAR IN RATE AND RHYTHM. BILATERAL LUNGS ARE NOTED WITH SCATTERED WHEEZING. ABDOMEN IS ROUND, SOFT, AND NON-TENDER WITH NORMAL BOWEL SOUNDS NOTED IN ALL QUADRANTS. HIS VITALS THIS MORNING ARE: 98.1-78-18-97%-133/62. LABS WERE OBTAINED. ABNORMAL LAB VALUES INCLUDE THE FOLLOWING: WBC 12.5, RBC 3.26, HGB 9.9, HCT 29.9, CHLORIDE 108, CREATININE 1.51, GLUCOSE 100, CALCIUM 8.1, ALBUMIN 2.0. BLOOD CULTURES ARE PENDING. SPUTUM CULTURE REVEALED GROWTH OF STAPHYLOCOCCUS AUREUS AND STREPTOCOCCUS PNEUMONIAE. CHEST XRAY REVEALED: Stable right basilar airspace disease. HE IS CURRENTLY RECIVING IV ZOSYN, RESPIRATORY TX, SUPPLEMENTAL OXYGEN, AND HOME MEDICATIONS WERE RESUMED. WE WILL CONTINUE WITH CURRENT PLAN OF CARE TODAY. OTHERWISE, WE PLAN TO FOLLOW UP WITH AM LABS AND CHEST XRAY AND CONTINUE TO MONITOR. - Past Medical Family Social History Past Med/Fam/Surg Hx: No changes since H&P Allergies: Allergies ciprofloxacin Allergy (Verified 03/24/19 15:07) doxycycline Allergy (Verified 03/24/19 15:07) levofloxacin [From Levaquin] Allergy (Verified 03/24/19 15:07) meloxicam [From Mobic] Allergy (Verified 03/24/19 15:07) - Review of Systems ROS: No change since H&P - Vital Signs and I&O's Vital Signs: Temperature 97.7 F Pulse Rate [Right Brachial] 81 Pulse Rate 62 Respiratory Rate 18 Blood Pressure [Right Arm] 163/68 Blood Pressure [Left Arm] 133/72 Blood Pressure 120/60 O2 Sat by Pulse Oximetry 98 Intake and Output: Intake & Output 03/26/19 03/27/19 03/28/19 03/29/19 11:59 11:59 11:59 11:59 Intake Total 2325 / 2325 2390 / 2390 1150 / 1150 2119 Balance 2325 / 2325 2390 / 2390 1150 / 1150 2119 - Physical Exam Oriented: Normal Eyes: Normal Ear: Normal Nose: Normal Throat: Normal Respiratory: Generalized, Wheezes Cardiovascular: Normal. negative: S3, S4, Murmur : Normal Auscultation: Bowel Sounds: Normal Palpation: Normal Tenderness: Normal Skin: Normal Musculoskeletal: Normal Psychiatric: Normal Mood Description: Calm Affect: Normal Speech Pattern: Clear, Appropriate - Laboratory and Diagnostics Result Diagrams: 03/29/19 05:17 03/29/19 05:17 Labs: 03/24/19 15:25 Sputum - Expectorated Sputum Sputum Culture - Final Staphylococcus Aureus Streptococcus Pneumoniae 03/24/19 15:25 Sputum - Expectorated Sputum - Final 03/24/19 15:35 Blood Blood Culture - Preliminary 03/24/19 15:30 Blood Blood Culture - Preliminary Laboratory WBC 13.8 X10^3/uL (3.6-10.0) H 03/29/19 05:17 RBC 3.29 X10^6/uL (4.7-6.0) L 03/29/19 05:17 Hgb 10.0 g/dL (13.5-18.0) L 03/29/19 05:17 Hct 30.1 % (42.0-54.0) L 03/29/19 05:17 MCV 91.6 fL (80.0-100.0) 03/29/19 05:17 MCH 30.3 pg (27.0-34.0) 03/29/19 05:17 MCHC 33.1 g/dL (33.0-35.0) 03/29/19 05:17 RDW 15.6 % (11.6-16.5) 03/29/19 05:17 Plt Count 368 X10^3/uL (150.0-450.0) 03/29/19 05:17 Plt Count Comment Adequate (ADEQUATE) 03/24/19 15:30 MPV 6.9 fL (7.4-11.0) L 03/29/19 05:17 Neut % (Auto) 65.9 % (42.0-75.0) 03/29/19 05:17 Lymph % (Auto) 16.0 % (21.0-51.0) L 03/29/19 05:17 [place] % (Auto) 7.5 % (0.0-13.0) 03/29/19 05:17 Eos % (Auto) 10.1 % (0.9-2.9) H 03/29/19 05:17 Baso % (Auto) 0.5 % (0.2-1.0) 03/29/19 05:17 Neut # (Auto) 9.1 x10^3/uL (2.2-4.8) H 03/29/19 05:17 Lymph # (Auto) 2.2 X10^3/uL (1.3-2.9) 03/29/19 05:17 [place] # (Auto) 1.0 x10^3/uL (0.3-0.8) H 03/29/19 05:17 Eos # (Auto) 1.4 x10^3/uL (0.0-0.2) H 03/29/19 05:17 Baso # (Auto) 0.1 X10^3/uL (0.0-0.1) 03/29/19 05:17 Absolute Nucleated RBC 0.0 /100WBC 03/29/19 05:17 Total Counted 100 03/24/19 15:30 Neutrophils % (Manual) 83 % (39-76) H 03/24/19 15:30 Band Neutrophils % 2 % (0-10) 03/24/19 15:30 Lymphocytes % (Manual) 9 % (13-43) L 03/24/19 15:30 Monocytes % (Manual) 4 % (4-9) 03/24/19 15:30 Eosinophils % (Manual) 2 % (0-6) 03/24/19 15:30 Plt Morphology Comment Normal (NORMAL) 03/24/19 15:30 RBC Morphology Normal (NORMAL) 03/24/19 15:30 Sodium 139 mmol/L (136-145) 03/29/19 05:17 Corrected Sodium TNP 03/29/19 05:17 Potassium 4.0 mmol/L (3.5-5.1) 03/29/19 05:17 Chloride 106 mmol/L (98-107) 03/29/19 05:17 Carbon Dioxide 24.8 mmol/L (21-32) 03/29/19 05:17 BUN 15 mg/dL (7-18) 03/29/19 05:17 Creatinine 1.42 mg/dL (0.70-1.30) H 03/29/19 05:17 Est GFR (MDRD) Af Amer > 60 (>60) 03/29/19 05:17 Est GFR (MDRD) Non-Af 50 (>60) L 03/29/19 05:17 Glucose 103 mg/dL (65-99) H 03/29/19 05:17 Calcium 8.1 mg/dL (8.5-10.1) L 03/29/19 05:17 Corrected Calcium 9.7 mg/dL (8.5-10.1) 03/29/19 05:17 Magnesium 1.9 mg/dL (1.7-2.9) 03/25/19 05:06 Total Bilirubin 0.50 mg/dL (0.2-1.0) 03/29/19 05:17 AST 32 Units/L (15-37) 03/29/19 05:17 ALT 16 Units/L (12-78) 03/29/19 05:17 Alkaline Phosphatase 83 Units/L (46-116) 03/29/19 05:17 Total Protein 6.4 g/dL (6.4-8.2) 03/29/19 05:17 Albumin 2.0 g/dL (3.4-5.0) L 03/29/19 05:17 Globulin 4.4 g/dL (2.5-4.5) 03/29/19 05:17 Albumin/Globulin Ratio 0.5 Ratio (1.1-2.1) L 03/29/19 05:17 Stl C. diff Tox B Gene Negative (NEGATIVE) 03/27/19 17:09 Stl C. diff [id number] Negative (NEGATIVE) 03/27/19 17:09 - Plan (1) Bronchopneumonia Status: Acute Plan: 1/2NS AT 75ML/HR, IV ZOSYN, TUSSIONEX, ROBITUSSION, RESPIRATORY TX, AND SUPPLEMENTAL OXYGEN
[2019-03-29] MEDS: ARIMIDEX PO SCH (08:47)
[2019-03-29] MEDS: FERROUS GLUCONATE PO SCH (08:47)
[2019-03-29] MEDS: VSL#3 PO SCH (08:48)
[2019-03-29] MEDS: XANAX PO SCH (08:48)
[2019-03-29] MEDS: COLACE CAP 100 MG PO SCH (08:48)
[2019-03-29] MEDS: MUCINEX DM PO SCH (08:49)
[2019-03-29] MEDS: EXELON PO SCH (08:49)
[2019-03-29] MEDS: ROBITUSSIN DM PO SCH ×2 (08:49→13:07)
[2019-03-29] MEDS: BUSPAR PO SCH (08:49)
[2019-03-29] MEDS: NAPROSYN PO SCH (08:49)
[2019-03-29] MEDS: LEXAPRO PO SCH (08:50)
[2019-03-29] MEDS: LOPRESSOR TAB 25 MG PO SCH (08:51)
[2019-03-29] MEDS: LOVENOX INJ 40 MG SYR SC SCH (08:52)
[2019-03-29] MEDS: MIRALAX POWDER (1 DOSE 17 G) PO SCH ×2 (08:54→08:55)
[2019-03-29] MEDS: PULMICORT NEB TX 0.5 MG NEB SCH (09:07)
[2019-03-29] MEDS: FLONASE NASAL SPRAY ENOSTRIL SCH (09:32)
[2019-03-29 12:10] VITALS: BP 150/65
== END 2019-03-29 13:05 | DRG 194 ==
LOC: MED/SURG → OBSVTOIN 14:46
PROVIDERS: ADMIT Internal Medicine; ATTEND Internal Medicine
CPT/HCPCS: 36415; 71010; 71045; 80053; 83735; 85025; 87040; 87070; 87077; 87186; 87205; 87493; 94640; 94760; 97110; 97116; 97162; 97165; 97535; A4222; S0170; J0713; J1650; J2543; J7050; J7626

== ENCOUNTER 2020-01-21 17:33 | Inpatient (IN) ==
[2020-01-21] MEDS ORDERED: NS 1000 ML 1,000 ML ONE (18:05)
--- NOTE | 2020-01-21 18:07 | DR.EXTPAIN ---
HPI Time seen Time Seen by Provider: 01/21/20 18:06 PCP Primary Care Physician: TEVIN HPI Comment HPI Comment: PATIENT IS 89YR OLD MALE IN ER FROM THE [facility] FOR AFTER FALLING ON THE FLOOR AND LANDING ON HIS BUTT. AOSO COMPLAINING OF KNEE PAIN. NO LOC. DENIES HEADACHE OR NECK PAIN.O2 SAT IN THE 50S AND WENT UP TO 87 ON 2L OXYGEN. BP WAS 104/52 AFTER THE FALL. PATIENT DID NOT EAT ALL DAY BECAUSE HE WAS NOT HUNGRY. HE IS WEAK AND HE SAID HIS STOOL ARE DARK IN COLOR. PATIENT WAS GIVEN PROTONIX TODAY AT THE [facility]. HE IS HAVING EPIGASTRIC PAIN ASSOCIATED WITH NAUSEA AND DIARRHEA. Complaint/Symptoms Chief Complaint Doctor Comments: FELL ON THE FLOOR AT THE [facility]. PATIENT HIT HIS BUTT AND INJURED KNEES. Chief Complaint:: PT TRANSPORTED TO TRAUMA ROOM VIA STRETCHER FROM [facility], REPORT CALLED AND STAFF STATES PT FELL ON FLOOR COMPLAINTS OF PAIN TO KNEES AND BUTT. HAS NOT EAT OR DRANK ANYTHING ALL DAY LONG. OXYGEN SAT PER [facility] 56% ON RA, NC @ 2 LPM O2 TO 87% BP 104/52 HR 107 TO 51 AFTER FALL. VITALS AFTER LUNCH TIME PB 176/77, HR 96 O2 93%. PT STATES," I WAS CHANGING CLOTHES AND JUST SAT DOWN ON FLOOR. I HAVE BEEN NAUSEATED. SOME DIARRHEA WITH CONSTIPATION AT TIMES. PT COMPLAINTS OF UPPER GASTRIC PAIN." Self Treatment fo Chief Complaint: PT WAS GIVEN ZOFRAN AND PROTONIX AT SOME POINT TODAY BUT [facility] UNSURE OF TIME. COVID-19 Coronavirus risk:travel/contact w/high risk person: No Has patient experienced Coronavirus symptoms: No Nurses notes reviewed Nurses Notes Review: Yes Source History Provided: Patient and [facility] Mode of arrival Mode of Arrival: Stretcher Timing Onset of Chief Complaint: 01/21/20 Context History of: None Associated signs and symptoms Associated Signs and Symptoms: None PMH PMH Past Medical History: Yes Past Medical History: Anemia, Arthritis and Hypertension Past Surgical History: Yes Surgical History: Cholecystectomy, Joint Replacement and Other Family History History of Family Medical Conditions: Yes Family Medical History: Hypertension Social History Do you use any recreational Drugs:: No Lives With: Spouse Lives Where: [facility] Travel Risk Coronavirus risk:travel/contact w/high risk person: No Has patient experienced Coronavirus symptoms: No Infectious screening In the last 2 months have you had wt loss of >10#?: NO Have you had fever, night sweats or hemotysis?: No Have you traveled outside the country in the last 6 months?: No Isolation: Standard ROS Review of Systems Constitutional: See HPI, Weakness and Fatigue; negative Fever Eyes: No Symptoms Reported and See HPI; negative Blurred Vision and Diplopia ENTM: No Symptoms Reported and See HPI; negative Nose Discharge and Nose Conge stion Respiratoy: No Symptoms Reported, See HPI and Short of Breath (ON EXERTION.); negative Wheezing Cardiovascular: No Symptoms Reported and See HPI; negative Chest Pain, Edema and Palpitations Gastrointestinal/Abdominal: See HPI and Nausea; negative Abdominal Pain, Diarrhea and Vomiting Genitourinary: No Symptoms Reported and See HPI; negative Dysuria and Hematuria Neurological: See HPI, Weakness and Dizziness; negative Headache Musculoskeletal: No Symptoms Reported and See HPI; negative Back Pain and Muscle Pain Integumentary: No Symptoms Reported and See HPI; negative Change in Color, Rash and Juandice Hematologic/Lymphatic: No Symptoms Reported, See HPI and Easy Bruising; negative Swollen Glands Endocrine: No Symptoms Reported and See HPI; negative Increased Thirst and Increased Urine Psychiatric: No Symptoms Reported and See HPI All Other Systems: Reviewed and Negative PE Vital Signs Vitals: Temperature 98.3 F Pulse Rate 88 Respiratory Rate 19 Blood Pressure [Right Arm] 150/65 Blood Pressure 160/72 O2 Sat by Pulse Oximetry 96 General Limitations: No Limitations General Appearance: Alert and In No Apparent Distress Head Head Exam: Normal Inspection; negative Atraumatic Eyes Eye exam: Normal Appearance and PERRL; negative Scleral Icterus and Conjunctival Injection ENT ENT Exam: Normal Exam, Normal Oropharynx, Normal External Ear Exam and TM's Normal Bilaterally Neck Neck Exam: Normal Inspection and Trachea Midline; negative Tenderness and Lymphadenopathy Chest Chest Inspection: Normal Inspection and Symmetric Chest Wall Rise; negative Tenderness Respiratory Respiratory Exam: Normal Lung Sounds Bilat; negative Accessory Muscle Use, Chest Wall Tenderness and Respiratory Distress Respiratory Exam: Bilateral: Rhonchi and Lower: Rhonchi Cardiovascular Cardiovascular Exam: Regular Rate, Normal Rhythm and Normal Heart Sounds; negative Systolic Murmur and Diastolic Murmur Abdominal Exam Abdominal Exam: Normal Inspection, Normal Bowel Sounds and Soft; negative Tenderness Extremities Extremities Exam: Tenderness (KNEE ) and Normal Capillary Refill; negative Edema and Calf Tenderness Lower Extremities Knee Exam: Full ROM and Tenderness; negative Swelling Back Back Exam: Normal Inspection; negative (R) CVA Tenderness and (L) CVA Tenderness Neurological Neurological Exam: Alert, Oriented X3 and CN II-XII Intact Psychiatric Psychiatric Exam: Normal Affect and Normal Mood Skin Skin Exam: Warm, Dry, Intact and Normal Color MDM Differential Diagnosis Differential Diagnosis: Other (FALL, KNEE CONTUSION LT AND RT, PELVIC PAIN, GENERALIZED WEAKNESS, ANEMIA.) COURSE Treatment Treatment: SEE ORDERS. Consultation Consultation Comments: DISCUSSED PATIENT WITH DR. ABARCA. HE WILL ADMIT PATIENT. Education/Counseling Education/Counseling: Patient Educated On: Diagnosis ROR Labs Reviewed Laboratory Results Reviewed?: Yes Result Diagrams: 01/30/20 05:15 01/30/20 05:15 Laboratory: 01/21/20 18:25 Blood Blood Culture - Final 01/21/20 18:28 Blood Blood Culture - Final WBC 25.0 X10^3/uL (3.6-10.0) H D 01/21/20 18:25 RBC 3.05 X10^6/uL (4.7-6.0) L 01/21/20 18:25 Hgb 8.9 g/dL (13.5-18.0) L 01/21/20 18:25 Hct 27.4 % (42.0-54.0) L 01/21/20 18:25 MCV 89.9 fL (80.0-100.0) 01/21/20 18:25 MCH 29.3 pg (27.0-34.0) 01/21/20 18: MCHC 32.6 g/dL (33.0-35.0) L 01/21/20 18: RDW 14.5 % (11.6-16.5) 01/21/20 18: Plt Count 660 X10^3/uL (150.0-450.0) H 01/21/20 18:25 Plt Count Comment Increased (ADEQUATE) 01/21/20 18: MPV 6.6 fL (7.4-11.0) L 01/21/20 18:25 Neut % (Auto) 85.2 % (42.0-75.0) H 01/21/20 18:25 Lymph % (Auto) 6.2 % (21.0-51.0) L 01/21/20 18: [place] % (Auto) 7.0 % (0.0-13.0) 01/21/20 18:25 Eos % (Auto) 0.2 % (0.9-2.9) L 01/21/20 18:25 Baso % (Auto) 1.4 % (0.2-1.0) H 01/21/20 18:25 Neut # (Auto) 21.3 x10^3/uL (2.2-4.8) H 01/21/20 18:25 Lymph # (Auto) 1.6 X10^3/uL (1.3-2.9) 01/21/20 18:25 [place] # (Auto) 1.8 x10^3/uL (0.3-0.8) H 01/21/20 18:25 Eos # (Auto) 0.1 x10^3/uL (0.0-0.2) 01/21/20 18:25 Baso # (Auto) 0.3 X10^3/uL (0.0-0.1) H 01/21/20 18:25 Absolute Nucleated RBC 0.0 /100WBC 01/21/20 18:25 Total Counted 100 01/21/20 18:25 Neutrophils % (Manual) 86 % (39-76) H 01/21/20 18:25 Band Neutrophils % 4 % (0-10) 01/21/20 18:25 Lymphocytes % (Manual) 5 % (13-43) L 01/21/20 18:25 Monocytes % (Manual) 4 % (4-9) 01/21/20 18:25 Eosinophils % (Manual) 1 % (0-6) 01/21/20 18:25 Plt Morphology Comment Normal (NORMAL) 01/21/20 18:25 RBC Morphology Abnormal (NORMAL) 01/21/20 18:25 Hypochromasia Slight A 01/21/20 18:25 Poikilocytosis Slight A 01/21/20 18:25 Sample Site Rr 01/21/20 23:26 ABG pH 7.530 (7.35-7.45) H 01/21/20 23:26 ABG pCO2 33.0 mmHg (35.0-45.0) L 01/21/20 23:26 ABG pO2 108.0 mmHg (80.0-100.0) H 01/21/20 23:26 ABG HCO3 27.6 mmol/L (22-26) H 01/21/20 23:26 ABG O2 Saturation 99.0 % (90-100) 01/21/20 23:26 ABG Base Excess 5.0 mmol/L (-2.0-2.0) H 01/21/20 23:26 Dani Test Pos 01/21/20 23:26 A-a Gradient 50.0 mmHg 01/21/20 23:26 FiO2 28.0 01/21/20 23:26 Blood Gas Comments Sarah well sw 01/21/20 23:26 Sodium 141 mmol/L (136-145) 01/21/20 18:25 Corrected Sodium 142 mmol/L (136-145) 01/21/20 18:25 Potassium 4.6 mmol/L (3.5-5.1) 01/21/20 18:25 Chloride 104 mmol/L (98-107) 01/21/20 18:25 Carbon Dioxide 29.5 mmol/L (21-32) 01/21/20 18:25 BUN 27 mg/dL (7-18) H 01/21/20 18:25 Creatinine 1.74 mg/dL (0.70-1.30) H 01/21/20 18:25 Est GFR (MDRD) Af Amer 48 (>60) L 01/21/20 18:25 Est GFR (MDRD) Non-Af 39 (>60) L 01/21/20 18:25 Glucose 145 mg/dL (65-99) H 01/21/20 18:25 Lactic Acid 1.4 mmol/L (0.4-2.0) 01/21/20 18:25 Calcium 9.3 mg/dL (8.5-10.1) 01/21/20 18:25 Corrected Calcium 10.4 mg/dL (8.5-10.1) H 01/21/20 18:25 Ferritin 502 ng/mL (26-388) H 01/21/20 18:25 Total Bilirubin 0.50 mg/dL (0.2-1.0) 01/21/20 18:25 AST 17 Units/L (15-37) 01/21/20 18:25 ALT 20 Units/L (12-78) 01/21/20 18:25 Alkaline Phosphatase 124 Units/L (46-116) H 01/21/20 18:25 Creatine Kinase 14 Units/L (39-308) L 01/21/20 18:25 CK-MB (CK-2) < 1.0 ng/mL (0-4.0) 01/21/20 18:25 CK/CKMB % Calc 7.1 % (<4) 01/21/20 18:25 Troponin I < 0.02 ng/mL (0-1.5) 01/21/20 18:25 C-Reactive Protein 101.10 mg/L (0-3.0) H 01/21/20 18:25 Total Protein 8.1 g/dL (6.4-8.2) 01/21/20 18:25 Albumin 2.6 g/dL (3.4-5.0) L 01/21/20 18:25 Globulin 5.5 g/dL (2.5-4.5) H 01/21/20 18:25 Albumin/Globulin Ratio 0.5 Ratio (1.1-2.1) L 01/21/20 18:25 SARS-CoV-2 (PCR) Negative (NEGATIVE) 01/21/20 23:28 XRAY XRAY Interpreted by: Radiologist (REPORT NOTED AND DISCUSSED WITH PATIENT.) and Self EKG Rate: 101 [place]: Normal Rhythm: Junctional (TACHYCARDIA) Block: None Hypertrophy: None ST: Nonsp Opioid Opioid Risk Tool Age (Geovanni box if 16-45): No History of Preadolescent Sexual Abuse: No Total: 0 Total Score Risk Category: Low Risk Copyright: [facility] predicting aberrant behaviors Diagnosis Discharge Problem: Hypoxia, Acute GI bleeding, Acute dehydration, Acute pelvic pain Pneumonia Qualifiers: Pneumonia type: due to unspecified organism Laterality: bilateral Lung location: lower lobe of lung Qualified Code(s): J18.9 - Pneumonia, unspecified organism Anemia Qualifiers: Anemia type: unspecified type Qualified Code(s): D64.9 - Anemia, unspecified Fall Qualifiers: Encounter type: initial encounter Qualified Code(s): W19.XXXA - Unspecified fall, initial encounter Lower back pain Qualifiers: Chronicity: acute Back pain laterality: bilateral Sciatica presence: without sciatica Qualified Code(s): M54.5 - Low back pain
[2020-01-21 18:48] LABS: BASOPHILS # (AUTO) 0.3 X10^3/uL (0.0-0.1); BASOPHILS % (AUTO) 1.4 % (0.2-1.0); EOSINOPHILS # (AUTO) 0.1 x10^3/uL (0.0-0.2); EOSINOPHILS % (AUTO) 0.2 % (0.9-2.9); HEMATOCRIT 27.4 % (42.0-54.0); HEMOGLOBIN 8.9 g/dL (13.5-18.0); LYMPHOCYTES # (AUTO) 1.6 X10^3/uL (1.3-2.9); LYMPHOCYTES % (AUTO) 6.2 % (21.0-51.0); MEAN CORPUSCULAR HEMOGLOBIN 29.3 pg (27.0-34.0); MEAN CORPUSCULAR HGB CONC 32.6 g/dL (33.0-35.0); MEAN CORPUSCULAR VOLUME 89.9 fL (80.0-100.0); MEAN PLATELET VOLUME 6.6 fL (7.4-11.0); MONOCYTES # (AUTO) 1.8 x10^3/uL (0.3-0.8); NEUTROPHILS # (AUTO) 21.3 x10^3/uL (2.2-4.8); NEUTROPHILS % (AUTO) 85.2 % (42.0-75.0); PLATELET COUNT 660 X10^3/uL (150.0-450.0); RED BLOOD COUNT 3.05 X10^6/uL (4.7-6.0); RED CELL DISTRIBUTION WIDTH 14.5 % (11.6-16.5)
[2020-01-21 18:57] LABS: BLOOD UREA NITROGEN 27 mg/dL (7-18); CALCIUM 9.3 mg/dL (8.5-10.1); CARBON DIOXIDE 29.5 mmol/L (21-32); CHLORIDE 104 mmol/L (98-107); COR NA(FOR HYPERGLY) 142 mmol/L (136-145); CREATININE 1.74 mg/dL (0.70-1.30); SODIUM 141 mmol/L (136-145); TROPONIN I < 0.02 ng/mL (0-1.5); eGFR NON BLACK RACES 39 (>60)
[2020-01-21 19:02] LABS: ALANINE AMINOTRANSFERASE 20 Units/L (12-78); ALBUMIN 2.6 g/dL (3.4-5.0); ALKALINE PHOSPHATASE 124 Units/L (46-116); ASPARTATE AMINO TRANSFERASE 17 Units/L (15-37); CKMB % 7.1 % (<4); COR CA(FOR HYPOALB) 10.4 mg/dL (8.5-10.1); CREATINE KINASE 14 Units/L (39-308); CREATINE KINASE MB < 1.0 ng/mL (0-4.0); TOTAL PROTEIN 8.1 g/dL (6.4-8.2)
[2020-01-21 19:06] LABS: BAND NEUTROPHILS % 4 % (0-10)
[2020-01-21 19:07] LABS: HYPOCHROMASIA SLIGHT; PLATELET MORPHOLOGY COMMENT NORMAL (NORMAL); POIKILOCYTOSIS SLIGHT
[2020-01-21] MEDS ORDERED: NS 1000 ML 1,000 ML IV ONE (19:43)
--- NOTE | 2020-01-21 21:42 | CT ---
HISTORYfall, back painSTUDYCT lumbar Spine without contrastCOMPARISONNoneTECHNIQUEL spine: contiguous axial images acquired through Lumbar spine in soft tissue and bone algorithms with coronal and sagittal reformats.IV contrast was not administered. Dose reduction techniques including Automated Exposure Control (AEC) and adjustment of mA and kV were utilized.FINDINGSThere is mild levoscoliosis of the lumbar spine centered at L2-3. Multilevel prominent marginal osteophytes throughout. Bones appear diffusely osteopenic. Age indeterminate wedge compression deformity at L2. Trabeculated appearance of the L3 vertebral body suggest presence of a hemangioma. Vacuum disc phenomena at L1-2, L3-4 and L4-5. The paraspinous soft tissues are mildly atrophic.L1-2:Broad-based posterior disc bulge with narrowing/obliteration of the right lateral recess.L2-3:Prominent osteophyte. Ligamentum flavum hypertrophy and facet hypertrophy. No significant central canal or neural foramina stenosis.L3-4:Posterior disc protrusion with central canal and neural foraminal stenosis. Facet and ligamentum flavum hypertrophy. Prominent lateral osteophyte with vacuum phenomena.L4-5:Posterior disc protrusion with ligamentum flavum and facet hypertrophy resulting in bilateral neural foramina and central canal stenosis.L5-S1:Posterior disc bulge with moderate ligamentum flavum and facet hypertrophy resulting in bilateral neural foramina narrowing, right greater than left, as well as central canal stenosis.Indeterminate sclerotic foci of the L5 vertebral body and right S1 sacral ala. 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 Mild fusiform dilatation of the right common iliac artery. Moderate atherosclerotic calcification. Evidence of prior cholecystectomy. Sigmoid diverticulosis without CT evidence of acute diverticulitis.IMPRESSION[Moderate to severe osteopenia. Age indeterminate wedge compression deformit y at L1.Trabeculated appearance of L3 vertebral body could represent underlying hemangioma, although other marrow replacement/infiltrative process cannot be entirely excluded. Consider MRI for further a ssessment.Moderate to severe multilevel spondylosis with multilevel posterior disc protrusion, facet and ligamentum flavum hypertrophy and neural foramina and central canal stenosis as detailed.Indeterm inate sclerotic foci of L5 vertebral body and right S1 sacral ala.Additional ancillary findings as de tailed.]Electronically signed by: Brooklyn Gonzalez (Jan 21, 2020 21:40:36)
--- NOTE | 2020-01-21 21:53 | CT ---
HISTORYFALL, CHEST PAINSTUDYCHEST W/O CONCOMPARISONNoneTECHNIQUEMultiple axial images of the chest were obtained from the thoracic inlet to the upper abdomen without IV contrast. Coronal and sagittal reformats obtained. Dose reduction techniques including Automated Exposure Control (AEC) and adjustment of mA and kV were utilized.FINDINGSLack of IV contrast limits assessment of solid organs and vasculature.Mediastinum: No mediastinal or hilar adenopathy. Heart size is within normal limits. No paricardial effusion The thoracic aorta is normal in its contour without evidence for aneurysmal dilatation. Heterogeneous thyroid. 2 cm low-density lesion of the left thyroid lobe.Lungs: Ground-glass nodules of the right upper lobe in peribronchovascular distribution. Mild bronchial wall thickening bilaterally. Patchy ground-glass opacities and consolidations of the posterior right middle and lower lobes, somewhat masslike along the posterior medial right lower lobe, measures up to 3.9 cm in size. Moderate-sized right pleural effusion. Patchy opacity of the left lower lobe. Linear and ground-glass opacities of the posterior left upper lobe with somewhat nodular 1.5 cm opacity noted. No pneumothorax. There is obliteration of the right lower lobe bronchus, which appears to be filled with heterogeneous soft tissue density material.Chest wall: No axillary adenopathy.Bones: Bones appear diffusely osteopenic with multilevel anterior osteophyte formation and endplate degenerative changes. Mild wedge compression deformity at T11, age indeterminate. No displaced rib fracture identified.Upper abdomen: Circumferential esophageal wall thickening with minimal stranding distally. Question wall thickening and stranding surrounding the proximal duodenum and pancreatic head region, incompletely imaged on this exam. Query prior cholecystectomy..IMPRESSIONNodular, ground-glass opacities and patchy consolidations bilaterally as detailed in findings, some regions appear nodular/masslike. Findings most concerning for inflammatory/infectious process with other differential consideration including atelectasis and/or edema. Findings of obliteration of the right lower lobe bronchus could be seen with mucous plugging, aspiration or endobronchial lesion.Moderate right pleural effusion.Diffuse osteopenia with age indeterminate wedge compression deformity at T11.Circumferential esophageal wall thickening may be correlated clinically for symptoms of esophagitis.Question wall thickening and surrounding strandy/inflammatory changes involving the proximal duodenum and distal gastric antrum, which could represent gastritis or reactive changes to pancreatitis. Clinical correlation is recommended.Electronically signed by: Brooklyn Gonzalez (Jan 21, 2020 21:51:48)
--- NOTE | 2020-01-21 21:57 | RAD ---
HISTORYFALL, PAIN COPD, PROSTATE CA, HERNIA, TONSIL, GB, APPENDIX, PROSTATE REMOVEDSTUDYPELVISCOMPARISONNoneFINDINGSOsteopenia limits assessment of subtle nondisplaced fracture or marrow infiltrative process. 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 Severe left hip de generative changes with near complete joint space loss and protrusio acetabula. Extensive sclerosis a nd cystic changes of the left femoral head with flattening along the weight-bearing surface.Surgical clips suggest prior prostatectomy.Pelvic ring appears intact without displaced fracture identified. M oderate multifocal pelvic enthesopathy.IMPRESSIONNo displaced fracture identified within limitation o f single-view and osteopenia. If there is strong clinical suspicion for osseous injury, CT may be per formed for further assessment.Degenerative changes as detailed.Electronically signed by: Brooklyn Gonzalez (Jan 21, 2020 21:56:06)
[2020-01-21] MEDS ORDERED: ZOSYN VIAL 3.375 GRAMS 3.375 G in NS 100 ML IV + SPIKE MINIBAG* 100 ML IV ONE (22:03)
[2020-01-21] MEDS ORDERED: ZOSYN VIAL 3.375 GRAMS IV ONE (22:08)
[2020-01-21] MEDS ORDERED: NS 100 ML IV + SPIKE MINIBAG* 100 ML IV ONE (22:08)
[2020-01-21] MEDS ORDERED: ZOFRAN INJ 4 MG VIAL IVP ONE (22:34)
[2020-01-21] MEDS ORDERED: ZOFRAN INJ 4 MG VIAL ONE (22:40)
[2020-01-21] MEDS ORDERED: PEPCID 20 MG IV PREMIX* 20 MG/50 ML BAG IV ONE ×2 (23:09→23:19)
[2020-01-21 23:48] LABS: ABG HCO3 27.6 mmol/L (22-26)
[2020-01-21 23:49] LABS: ABG ALLEN TEST POS
[2020-01-21 23:55] LABS: LACTIC ACID 1.4 mmol/L (0.4-2.0)
[2020-01-22] MEDS ORDERED: ZITHROMAX INJ 500 MG VIAL 500 MG in D5W 250 ML IV 250 ML IV SCH (00:25)
[2020-01-22] MEDS: ZOSYN VIAL 3.375 GRAMS 3.375 G in NS 100 ML IV + SPIKE MINIBAG* 100 ML IV SCH ×4 (00:36→21:58)
[2020-01-22] MEDS ORDERED: ZITHROMAX INJ 500 MG VIAL IV ONE (00:39)
[2020-01-22] MEDS ORDERED: NS 250 ML IV 250 ML IV ONE ×2 (00:40→23:44)
[2020-01-22 01:05] LABS: BILIRUBIN,URINE NEGATIVE (NEGATIVE); BLOOD/HEMOGLOBIN,URINE 2+ (NEGATIVE); GLUCOSE, URINE NEGATIVE (NEGATIVE); KETONES,URINE NEGATIVE (NEGATIVE); LEUKOCYTE ESTERASE ,URINE 1+ (NEGATIVE); NITRITES,URINE NEGATIVE (NEGATIVE); PROTEIN,URINE 2+ (NEGATIVE); UROBILINOGEN,URINE NORMAL (NORMAL)
[2020-01-22 01:18] LABS: APPEARANCE,URINE CLEAR (CLEAR); COLOR,URINE YELLOW (YELLOW)
[2020-01-22 01:19] LABS: BACTERIA,URINE TRACE /HPF (NEGATIVE); SQUAMOUS EPITHELIAL CELL,UR FEW /HPF (NEGATIVE)
[2020-01-22] MEDS ORDERED: ZOFRAN INJ 4 MG VIAL IVP PRN (01:27)
[2020-01-22] MEDS ORDERED: PATIENT'S HOME MEDICATION (Melatonin 5 MG) PO SCH (01:27)
[2020-01-22] MEDS ORDERED: PHENERGAN INJ 25 MG IM ONE (01:32)
[2020-01-22] MEDS: PHENERGAN INJ 25 MG IM PRN ×2 (01:45→08:45)
[2020-01-22] MEDS ORDERED: NS 1000 ML 1,000 ML ONE (01:53)
[2020-01-22 02:25] LABS: GASTRIC OCCULT BLOOD POSITIVE (NEGATIVE)
[2020-01-22 02:27] LABS: PH,GASTRIC FLUID 4
[2020-01-22] MEDS: ELAVIL PO SCH ×2 (03:03→21:43)
[2020-01-22] MEDS: NEURONTIN CAP 300 MG PO SCH ×2 (03:03→21:40)
[2020-01-22] MEDS: SINGULAIR TAB 10 MG PO SCH ×2 (03:10→21:58)
[2020-01-22] MEDS: ZANAFLEX PO SCH ×2 (03:10→21:43)
[2020-01-22 03:44] VITALS: BMI 25.7
[2020-01-22] MEDS: NS 1000 ML 1,000 ML IV SCH ×2 (03:53→18:42)
[2020-01-22] MEDS ORDERED: TUSSIONEX PENNKINETIC SUSP ONE (03:59)
[2020-01-22] MEDS: TUSSIONEX PENNKINETIC SUSP PO PRN ×2 (04:11→21:59)
[2020-01-22 05:37] LABS: BASOPHILS # (AUTO) 0.2 X10^3/uL (0.0-0.1); BASOPHILS % (AUTO) 0.7 % (0.2-1.0); EOSINOPHILS # (AUTO) 0.1 x10^3/uL (0.0-0.2); EOSINOPHILS % (AUTO) 0.5 % (0.9-2.9); HEMATOCRIT 24.4 % (42.0-54.0); HEMOGLOBIN 7.9 g/dL (13.5-18.0); LYMPHOCYTES # (AUTO) 2.6 X10^3/uL (1.3-2.9); LYMPHOCYTES % (AUTO) 10.4 % (21.0-51.0); MEAN CORPUSCULAR HEMOGLOBIN 29.7 pg (27.0-34.0); MEAN CORPUSCULAR HGB CONC 32.2 g/dL (33.0-35.0); MEAN CORPUSCULAR VOLUME 92.2 fL (80.0-100.0); MEAN PLATELET VOLUME 6.9 fL (7.4-11.0); MONOCYTES % (AUTO) 7.9 % (0.0-13.0); NEUTROPHILS % (AUTO) 80.5 % (42.0-75.0); PLATELET COUNT 622 X10^3/uL (150.0-450.0); RED BLOOD COUNT 2.65 X10^6/uL (4.7-6.0); WHITE BLOOD COUNT 24.9 X10^3/uL (3.6-10.0)
[2020-01-22] MEDS: MIRAPEX TAB 0.25 MG PO SCH ×3 (05:54→21:43)
[2020-01-22 05:55] LABS: ALBUMIN 2.3 g/dL (3.4-5.0); CALCIUM 8.7 mg/dL (8.5-10.1); CARBON DIOXIDE 23.5 mmol/L (21-32); COR CA(FOR HYPOALB) 10.1 mg/dL (8.5-10.1); CREATININE 1.69 mg/dL (0.70-1.30); TOTAL PROTEIN 7.4 g/dL (6.4-8.2)
[2020-01-22] MEDS: XANAX PO SCH ×3 (05:55→21:43)
[2020-01-22 06:09] LABS: CKMB % 4.2 % (<4); CREATINE KINASE 24 Units/L (39-308); TROPONIN I < 0.02 ng/mL (0-1.5)
[2020-01-22 06:30] LABS: PLATELET MORPHOLOGY COMMENT NORMAL (NORMAL)
[2020-01-22] MEDS ORDERED: LEXAPRO ONE (08:25)
[2020-01-22] MEDS ORDERED: PATIENT'S HOME MEDICATION (Escitalopram Oxalate 20 MG) PO SCH (09:00)
[2020-01-22] MEDS ORDERED: PEPCID 20 MG IV PREMIX* 20 MG/50 ML BAG IV SCH (09:00)
[2020-01-22] MEDS ORDERED: [UNRECOGNIZED DRUG - OTHER] PO SCH (09:00)
[2020-01-22] MEDS ORDERED: PATIENT'S HOME MEDICATION (Budesonide-Formoterol 2 PUFF) IN SCH (09:00)
[2020-01-22] MEDS ORDERED: PATIENT'S HOME MEDICATION (Carboxymethylcellulose Sodium [Refresh Tears] 1 DROP) OP SCH (09:00)
[2020-01-22] MEDS ORDERED: PROTONIX INJ 40 MG VIAL IVP SCH (09:00)
[2020-01-22] MEDS ORDERED: FERROUS FUMARATE 324 MG PO SCH (09:00)
[2020-01-22] MEDS: PULMICORT NEB TX 0.5 MG NEB SCH ×2 (09:05→21:35)
[2020-01-22] MEDS: DUONEB 0.5 MG/3 MG (3 mL) NEB SCH ×4 (09:05→21:35)
[2020-01-22 11:09] LABS: HEMATOCRIT 22.9 % (42.0-54.0); HEMOGLOBIN 7.4 g/dL (13.5-18.0)
[2020-01-22] MEDS ORDERED: PROTONIX INJ 40 MG VIAL ONE (11:20)
[2020-01-22] MEDS ORDERED: NS 100 ML IV 100 ML IV ONE (11:21)
[2020-01-22 12:22] LABS: AMYLASE 39 Units/L (25-115); LIPASE 77 Units/L (73-393)
[2020-01-22] MEDS: PROTONIX INJ 40 MG VIAL 80 MG in NS 100 ML IV 80 ML IV SCH ×2 (12:30→21:44)
[2020-01-22] MEDS ORDERED: NS 250 ML IV 500 ML IV ONE (12:35)
--- NOTE | 2020-01-22 15:23 | DR.H&P ---
H&P - History & Physical for Day of: H&P Date: 01/21/20 - Chief Complaint Chief Complaint: LOWER BACK PAIN, SOB, NAUSEA, VOMITING, EPIGASTRIC PAIN, DIARRHEA - History of Present Illness History of Present Illness: IS A 89 YEAR OLD PATIENT OF OURS. HE IS A RESIDENT OF [facility]. HE PRESENTED TO THE ER WITH REPORTS OF LOWER BACK PAIN, SHORTNESS OF BREATH, NAUSEA, VOMITING, EPIGASTRIC PAIN, AND DIARRHEA. [facility] STAFF REPORTED THAT PATIENT FELL EARLIER IN THE DAY. THEY REPORT THAT HE HAS NOT EATEN OR DRANK ANYTHING TODAY. THEY REPORT THAT HIS OXYGEN SATURATION AT THE [facility] WERE NOTED TO BE 56% ON ROOM AIR. HE WAS PLACED ON OXYGEN VIA NASAL CANNULA AT 2 LITERS/MIN. SATURATIONS INCREASED TO 87%. ON ARRIVAL TO THE ER, VITALS WERE 98.3-97-20-98%-120/63. LABS WERE OBTAINED. ABNORMAL LAB VALUES INCLUDE THE FOLLOWING: WBC 25.0, RBC 3.05, HGB 8.9, HCT 27.4, PLT COUNT 660, BUN 27, CREATININE 1.74, GLUCOSE 145, FERRITIN 502, ALK PHOS 124, CREATINE KINASE 14, ALBUMIN 2.6, GLOBULIN 5.5, CRP 101.10. URINALYSIS REVEALED: RBC 3-5, WBC 0-2, LEUKOCYTES 1+, OCCULT BLOOD 2+, PROTEIN 2+. EMESIS AND STOOLS WERE BOTH POSITIVE FOR OCCULT BLOOD. COVID-19 NEGATIVE. BLOOD CULTURES WERE SET UP. A CHEST CT WITHOUT CONTRAST WAS OBTAINED AND REVEALED: Nodular, ground-glass opacities and patchy consolidations bilaterally as detailed in findings, some regions appear nodular/masslike. Findings most concerning for inflammatory/infectious process with other differential consideration including atelectasis and/or edema. Findings of obliteration of the right lower lobe bronchus could be seen with mucous plugging, aspiration or endobronchial lesion. Moderate\right pleural effusion. Diffuse osteopenia with age indeterminate wedge compression deformity at T11. Circumferential esophageal wall thickening may be correlated clinically for symptoms of esophagitis. Question wall thickening and surrounding strandy/inflammatory changes involving the proximal duodenum and distal gastric antrum, which could represent gastritis or reactive changes to pancreatitis. A LUMBAR SPINE CT WAS OBTAINED AND REVEALED: Moderate to severe osteopenia. Age indeterminate wedge compression deformity at L1. Trabeculated appearance of L3 vertebral body could represent underlying hemangioma, although other marrow replacement/infiltrative process cannot be entirely excluded. Consider MRI for further assessment. Moderate to severe multilevel spondylosis with multilevel posterior disc protrusion, facet and ligamentum flavum hypertrophy and neural foramina and central canal stenosis as detailed. Indeterminate sclerotic foci of L5 vertebral body and right S1 sacral ala. A PELVIS XRAY WAS OBTAINED AND REVEALED: No displaced fracture identified within limitation of single-view and osteopenia. EKG REVEALED: SINUS RHYTHM WITH HR 93. DURING HIS ER STAY, ER STAFF REPORTED THAT PATIENTS STOOL WAS DARK AND TARRY IN CHARACTERISTIC. HE WAS GIVEN ZOFRAN 4MG IV X 1 AND A NORMAL SALINE BOLUS. HE WAS ADMITTED TO THE HOSPITAL FOR FURTHER EVALUATION AND TREATMENT OF PNEUMONIA, HYPOXIA, GI BLEED, GASTRITIS, AND ANEMIA. HE WAS STARTED ON NORMAL SALINE AT 50 ML/HR, ZOSYN 3.375G IV TID, AZITHROMYCIN 500MG IV DAILY, PEPCID 20MG IV Q12H, A PROTONIX DRIP, ZOFRAN 4MG IV Q6H PRN, DUONEBS QID, AND HIS HOME MEDICATIONS WERE RESUMED. WE PLAN TO OBTAIN H&H Q6H. OTHERWISE, WE WILL FOLLOW UP WITH AM LABS, CHEST XRAY, AND CONTINUE TO MONITOR. - Past Medical History Past Medical History: Hypertension, Anemia, Arthritis - Past Surgical History Surgical History: Appendectomy, Cholecystectomy, Joint Replacement, Ortho Surgery, Tonsillectomy, TURP - Family History Family Medical History: Hypertension - Social History Does patient currently use any type of tobacco product: No Have you used tobacco products in the last 12 months: No Type of Tobacco Use: Cigarettes Does any household member use tobacco: No Alcohol Use: None Drug Use: None - Medications Home Medications: ciprofloxacin Allergy (Verified 01/21/20 22:31) doxycycline Allergy (Verified 01/21/20 22:31) levofloxacin [From Levaquin] Allergy (Verified 01/21/20 22:31) meloxicam [From Mobic] Allergy (Verified 01/21/20 22:31) CONTINUE taking the following medications brinzolamide 1 drp OPHTHALMIC (EYE) BID 01/21/20 [History] escitalopram oxalate 20 mg PO DAILY 01/21/20 [History] ipratropium-albuterol 3 ml INHALATION QID 01/21/20 [History] melatonin 5 mg PO QHS 01/21/20 [History] ondansetron HCl 4 mg PO Q6H PRN 01/21/20 [History] pantoprazole [Protonix] 40 mg PO BID 01/21/20 [History] rivastigmine tartrate 3 mg PO BID 01/21/20 [History] ropinirole 0.5 mg PO BID 01/21/20 [History] - Review of Systems Constitutional: Weakness Eyes: No Symptoms Reported ENT: No Symptoms Reported Respiratory: Shortness of Breath Cardiovascular: Light Headedness Gastrointestinal: See HPI, Nausea, Vomiting, Diarrhea Genitourinary: No Symptoms Reported Musculoskeletal: No Symptoms Reported Skin: No Symptoms Reported Neurological: Weakness, Confusion - Physical Exam Vital Signs: Temperature 97.3 F Pulse Rate [Left] 88 Pulse Rate 96 Respiratory Rate 19 Blood Pressure [Right Arm] 138/60 Blood Pressure 146/63 O2 Sat by Pulse Oximetry 99 Oriented: Person Eyes: Normal Ear: Normal Nose: Normal Throat: Normal Respiratory: Diminished Throughout Cardiovascular: Normal : Normal Auscultation: Bowel Sounds: Normal Palpation: Normal Tenderness: Epigastric, Mild Skin: Normal Musculoskeletal: Back:Lumbar, Pelvis, Tender Psychiatric: Normal Mood Description: Calm Affect: Normal Speech Pattern: Inappropriate - Assessment/Plan (1) Pneumonia Qualifiers: Pneumonia type: due to unspecified organism Laterality: bilateral Lung location: unspecified part of lung Qualified Code(s): J18.9 - Pneumonia, unspecified organism Status: Acute Plan: ADMIT, NORMAL SALINE AT 50 ML/HR, ZOSYN 3.375G IV TID, AZITHROMYCIN 500MG IV DAILY, PEPCID 20MG IV Q12H, A PROTONIX DRIP, ZOFRAN 4MG IV Q6H PRN, DUONEBS QID, AND HIS HOME MEDICATIONS WERE RESUMED (2) Hypoxia Status: Acute (3) GI bleed Status: Acute (4) Anemia Qualifiers: Anemia type: unspecified type Qualified Code(s): D64.9 - Anemia, unspecified Status: Acute Plan: MONITOR H&H Q6H, CONTINUE TO MONITOR (5) Gastritis Qualifiers: Gastritis type: unspecified gastritis Chronicity: acute Gastritis bleeding: with bleeding Qualified Code(s): K29.01 - Acute gastritis with bleeding Status: Acute - Allergies Allergies/Adverse Reactions: Allergies Allergy/AdvReac Type Severity Reaction Status Date / Time ciprofloxacin Allergy Verified 10/16/20 22:31 doxycycline Allergy Verified 01/21/20 22:31 levofloxacin [From Levaquin] Allergy Verified 01/21/20 22:31 meloxicam [From Mobic] Allergy Verified 01/21/20 22:31
[2020-01-22] MEDS: ARIMIDEX PO SCH (15:32)
[2020-01-22] MEDS: TAB-A-VITE PO SCH ×2 (15:39→21:43)
[2020-01-22] MEDS: VSL#3 PO SCH (15:39)
[2020-01-22] MEDS: MIRALAX POWDER (1 DOSE 17 G) PO SCH (15:40)
[2020-01-22] MEDS: LOPRESSOR TAB 25 MG PO SCH ×2 (15:40→21:40)
[2020-01-22] MEDS: REQUIP PO SCH ×2 (15:40→21:42)
[2020-01-22] MEDS: LEXAPRO PO SCH (15:41)
[2020-01-22] MEDS: EXELON PO SCH ×2 (15:41→21:44)
[2020-01-22] MEDS: BUSPAR PO SCH (15:41)
[2020-01-22] MEDS: DEMADEX PO SCH (15:42)
[2020-01-22] MEDS: COLACE CAP 100 MG PO SCH ×2 (15:42→21:40)
[2020-01-22] MEDS: BRINZOLAMIDE OP SCH ×2 (15:42→21:40)
[2020-01-22 17:43] LABS: HEMATOCRIT 22.4 % (42.0-54.0); HEMOGLOBIN 7.2 g/dL (13.5-18.0)
[2020-01-22] MEDS ORDERED: BUTT CREAM (COMPOUND) ONE (19:30)
[2020-01-22] MEDS: BUTT CREAM (COMPOUND) TOP PRN (21:39)
[2020-01-22] MEDS: ARTIFICIAL TEARS DROPS OP SCH (21:39)
[2020-01-22] MEDS: FERROUS GLUCONATE PO SCH (21:57)
[2020-01-22] MEDS: PEPCID 20 MG IV PREMIX* 20 MG/50 ML BAG IV SCH (21:58)
[2020-01-22] MEDS: ZITHROMAX INJ 500 MG VIAL 500 MG in D5W 250 ML IV 250 ML IV SCH (21:58)
[2020-01-22 23:27] LABS: HEMATOCRIT 20.9 % (42.0-54.0)
[2020-01-22 23:29] LABS: HEMOGLOBIN 6.8 g/dL (13.5-18.0)
[2020-01-23] MEDS: XANAX PO SCH ×3 (05:12→21:00)
[2020-01-23] MEDS: MIRAPEX TAB 0.25 MG PO SCH ×3 (05:12→21:00)
[2020-01-23] MEDS: ZOSYN VIAL 3.375 GRAMS 3.375 G in NS 100 ML IV + SPIKE MINIBAG* 100 ML IV SCH ×3 (05:46→22:51)
[2020-01-23 07:12] LABS: BASOPHILS # (AUTO) 0.1 X10^3/uL (0.0-0.1); BASOPHILS % (AUTO) 0.7 % (0.2-1.0); EOSINOPHILS # (AUTO) 0.4 x10^3/uL (0.0-0.2); HEMATOCRIT 26.7 % (42.0-54.0); HEMOGLOBIN 8.7 g/dL (13.5-18.0); LYMPHOCYTES # (AUTO) 2.1 X10^3/uL (1.3-2.9); MEAN CORPUSCULAR HEMOGLOBIN 29.1 pg (27.0-34.0); MEAN CORPUSCULAR HGB CONC 32.8 g/dL (33.0-35.0); MEAN CORPUSCULAR VOLUME 88.8 fL (80.0-100.0); MEAN PLATELET VOLUME 6.4 fL (7.4-11.0); MONOCYTES # (AUTO) 1.4 x10^3/uL (0.3-0.8); MONOCYTES % (AUTO) 7.6 % (0.0-13.0); NEUTROPHILS # (AUTO) 15.1 x10^3/uL (2.2-4.8); NEUTROPHILS % (AUTO) 78.7 % (42.0-75.0); PLATELET COUNT 430 X10^3/uL (150.0-450.0); RED BLOOD COUNT 3.01 X10^6/uL (4.7-6.0); RED CELL DISTRIBUTION WIDTH 15.4 % (11.6-16.5); WHITE BLOOD COUNT 19.2 X10^3/uL (3.6-10.0)
[2020-01-23 07:29] LABS: CALCIUM 8.7 mg/dL (8.5-10.1); CARBON DIOXIDE 21.9 mmol/L (21-32); COR CA(FOR HYPOALB) 10.3 mg/dL (8.5-10.1); CREATININE 1.75 mg/dL (0.70-1.30); TOTAL PROTEIN 6.9 g/dL (6.4-8.2)
--- NOTE | 2020-01-23 08:22 | RAD ---
HISTORYSOBSTUDYCHEST, 1 [id number] is midline. Heart size is enlarged. Moderate increased bibasilar interstitial and alveolar opacities consistent with pneumonia. Bilateral small to moderate pleural effusions. No pneumothorax. No acute osseous abnormalityIMPRESSIONInterval worsening of multifocal bibasilar infiltrates/pneumonia.Small to moderate bilateral pleural effusions.Electronically signed by: MARTIN DUMONT (Jan 23, 2020 08:20:25)
[2020-01-23] MEDS ORDERED: LEXAPRO ONE (08:23)
[2020-01-23] MEDS: PEPCID 20 MG IV PREMIX* 20 MG/50 ML BAG IV SCH ×2 (08:37→10:06)
[2020-01-23] MEDS: DUONEB 0.5 MG/3 MG (3 mL) NEB SCH ×4 (09:10→20:55)
[2020-01-23] MEDS: PULMICORT NEB TX 0.5 MG NEB SCH ×2 (09:10→20:55)
[2020-01-23] MEDS: LOPRESSOR TAB 25 MG PO SCH ×2 (10:00→21:47)
[2020-01-23] MEDS: BUSPAR PO SCH (10:04)
[2020-01-23] MEDS: COLACE CAP 100 MG PO SCH ×2 (10:05→21:00)
[2020-01-23] MEDS: FERROUS GLUCONATE PO SCH ×2 (10:08→21:46)
[2020-01-23] MEDS: REQUIP PO SCH ×2 (10:08→21:48)
[2020-01-23] MEDS: VSL#3 PO SCH (10:09)
[2020-01-23] MEDS: TAB-A-VITE PO SCH ×2 (10:09→21:49)
[2020-01-23] MEDS: MIRALAX POWDER (1 DOSE 17 G) PO SCH (10:10)
[2020-01-23] MEDS: ARTIFICIAL TEARS DROPS OP SCH ×2 (10:10→22:41)
[2020-01-23] MEDS: BRINZOLAMIDE OP SCH ×2 (10:10→21:44)
[2020-01-23] MEDS: EXELON PO SCH ×2 (10:11→21:45)
[2020-01-23] MEDS: LEXAPRO PO SCH (10:11)
[2020-01-23] MEDS: DEMADEX PO SCH (10:12)
[2020-01-23] MEDS: PROTONIX INJ 40 MG VIAL 80 MG in NS 100 ML IV 80 ML IV SCH ×3 (10:31→23:22)
[2020-01-23] MEDS: ARIMIDEX PO SCH (10:31)
[2020-01-23] MEDS: NS 1000 ML 1,000 ML IV SCH ×2 (10:33→22:50)
[2020-01-23 12:13] LABS: HEMATOCRIT 26.8 % (42.0-54.0); HEMOGLOBIN 8.8 g/dL (13.5-18.0)
[2020-01-23] MEDS ORDERED: MAALOX or MYLANTA PO PRN (18:13)
[2020-01-23 18:32] LABS: HEMATOCRIT 26.2 % (42.0-54.0); HEMOGLOBIN 8.6 g/dL (13.5-18.0)
[2020-01-23] MEDS ORDERED: LEVSIN/MAALOX/LIDOC VISC PO PRN (20:01)
[2020-01-23] MEDS ORDERED: LEVSIN/MAALOX/LIDOC VISC ONE (20:24)
[2020-01-23] MEDS: TUSSIONEX PENNKINETIC SUSP PO PRN (21:00)
[2020-01-23] MEDS: ZITHROMAX INJ 500 MG VIAL 500 MG in D5W 250 ML IV 250 ML IV SCH (21:00)
[2020-01-23] MEDS ORDERED: RESTORIL CAP 15 MG PO ONE (21:44)
[2020-01-23] MEDS: RESTORIL CAP 15 MG PO PRN (21:45)
[2020-01-23] MEDS: ELAVIL PO SCH (21:45)
[2020-01-23] MEDS: NEURONTIN CAP 300 MG PO SCH (21:47)
[2020-01-23] MEDS: SINGULAIR TAB 10 MG PO SCH (21:49)
[2020-01-23] MEDS: ZANAFLEX PO SCH (21:49)
[2020-01-24 00:28] LABS: HEMATOCRIT 22.1 % (42.0-54.0); HEMOGLOBIN 7.3 g/dL (13.5-18.0)
[2020-01-24] MEDS: PROTONIX INJ 40 MG VIAL 80 MG in NS 100 ML IV 80 ML IV SCH ×2 (03:54→15:26)
[2020-01-24 05:07] LABS: BASOPHILS # (AUTO) 0.1 X10^3/uL (0.0-0.1); BASOPHILS % (AUTO) 0.6 % (0.2-1.0); EOSINOPHILS # (AUTO) 0.9 x10^3/uL (0.0-0.2); EOSINOPHILS % (AUTO) 5.9 % (0.9-2.9); HEMOGLOBIN 7.9 g/dL (13.5-18.0); LYMPHOCYTES # (AUTO) 1.7 X10^3/uL (1.3-2.9); LYMPHOCYTES % (AUTO) 11.4 % (21.0-51.0); MEAN CORPUSCULAR HEMOGLOBIN 29.5 pg (27.0-34.0); MEAN CORPUSCULAR VOLUME 89.4 fL (80.0-100.0); MONOCYTES # (AUTO) 1.1 x10^3/uL (0.3-0.8); MONOCYTES % (AUTO) 7.5 % (0.0-13.0); NEUTROPHILS # (AUTO) 10.8 x10^3/uL (2.2-4.8); NEUTROPHILS % (AUTO) 74.6 % (42.0-75.0); PLATELET COUNT 435 X10^3/uL (150.0-450.0); RED BLOOD COUNT 2.69 X10^6/uL (4.7-6.0); WHITE BLOOD COUNT 14.5 X10^3/uL (3.6-10.0)
[2020-01-24 05:22] LABS: ALANINE AMINOTRANSFERASE 16 Units/L (12-78); ALKALINE PHOSPHATASE 89 Units/L (46-116); ASPARTATE AMINO TRANSFERASE 17 Units/L (15-37); BLOOD UREA NITROGEN 37 mg/dL (7-18); CALCIUM 8.4 mg/dL (8.5-10.1); CHLORIDE 109 mmol/L (98-107); SODIUM 142 mmol/L (136-145); TOTAL PROTEIN 6.9 g/dL (6.4-8.2); eGFR NON BLACK RACES 41 (>60)
[2020-01-24 05:30] LABS: PLATELET MORPHOLOGY COMMENT NORMAL (NORMAL)
[2020-01-24] MEDS: MIRAPEX TAB 0.25 MG PO SCH (06:20)
[2020-01-24] MEDS: XANAX PO SCH ×3 (06:20→21:19)
[2020-01-24] MEDS: ZOSYN VIAL 3.375 GRAMS 3.375 G in NS 100 ML IV + SPIKE MINIBAG* 100 ML IV SCH ×3 (06:20→21:19)
[2020-01-24] MEDS ORDERED: LEXAPRO ONE (08:06)
[2020-01-24] MEDS: PEPCID 20 MG IV PREMIX* 20 MG/50 ML BAG IV SCH (09:05)
[2020-01-24] MEDS: REQUIP PO SCH ×2 (09:06→21:17)
[2020-01-24] MEDS: COLACE CAP 100 MG PO SCH ×2 (09:06→20:44)
[2020-01-24] MEDS: VSL#3 PO SCH (09:06)
[2020-01-24] MEDS: TAB-A-VITE PO SCH ×2 (09:07→21:18)
[2020-01-24] MEDS: LOPRESSOR TAB 25 MG PO SCH ×2 (09:07→21:17)
[2020-01-24] MEDS: DEMADEX PO SCH (09:08)
[2020-01-24] MEDS: ARIMIDEX PO SCH (09:09)
[2020-01-24] MEDS: EXELON PO SCH ×2 (09:10→20:45)
[2020-01-24] MEDS: BUSPAR PO SCH (09:10)
[2020-01-24] MEDS: ARTIFICIAL TEARS DROPS OP SCH ×2 (09:10→20:43)
[2020-01-24] MEDS: BRINZOLAMIDE OP SCH (09:10)
[2020-01-24] MEDS: LEXAPRO PO SCH (09:11)
[2020-01-24] MEDS: FERROUS GLUCONATE PO SCH ×2 (09:11→20:45)
[2020-01-24] MEDS: MIRALAX POWDER (1 DOSE 17 G) PO SCH (09:12)
[2020-01-24] MEDS: DUONEB 0.5 MG/3 MG (3 mL) NEB SCH ×4 (09:30→21:58)
[2020-01-24] MEDS: PULMICORT NEB TX 0.5 MG NEB SCH ×2 (09:30→21:58)
--- NOTE | 2020-01-24 10:54 | RAD ---
HISTORYSOBSTUDYCHEST, 1 VIEWCOMPARISONChest radiograph done January 23, 2020Findings/conclusion: There is persistent cardiomegaly with improvement bilateral lower lobe pulmonary opacities. Layering bilateral pleural effusions are stable. No pneumothorax.Electronically signed by: TOMMY CESPEDES (Jan 24, 2020 10:53:06)
--- NOTE | 2020-01-24 10:57 | PCM.PROG ---
Progress Note - Progress Note for Day of Date of Exam: 01/23/20 - Subjective Subjective: IS BEING TREATED FOR PNEUMONIA WITH HYPOXIA, GI BLEED, GASTRITIS, AND ANEMIA. HE HAD TO RECEIVE TWO UNITS OF PRBC THROUGHOUT THE NIGHT DUE TO HEMOGLOBIN FALLING TO 6.8. STAFF REPORTS THAT HE HAS BEEN DISORIENTED, CONFUSED, AND RESTLESS THROUGHOUT THE NIGHT. HE HAS ATTEMPTED TO GET OUT OF BED MULTIPLE TIMES. HE IS PULLING AT IV LINES AND MESSING WITH EQUIPMENT. TODAY, HE IS DISORIENTED, BUT DOES ADMIT TO NAUSEA THIS MORNING. ON EXAMINATION, HEART IS REGULAR IN RATE AND RHYTHM. BILATERAL LUNGS ARE NOTED WITH SCATTERED WHEEZING THROUGHOUT. ABDOMEN IS ROUND, SOFT, AND NOTED WITH DIFFUSED TENDERNESS TO PALPATION. INCREASED BOWEL SOUNDS NOTED. HIS VITALS THIS MORNING ARE: 98.2-76-2 0-98%-194/98. LABS WERE OBTAINED. ABNORMAL LAB VALUES INCLUDE THE FOLLOWING: WBC 19.2, RBC 3.01, HGB 8.7, HCT 26.7, CHLORIDE 109, BUN 34, CREATININE 1.75, GLUCOSE 114, CRP 98.10, ALBUMIN 2.0, GLOBULIN 4.9. COVID-19 PENDING. BLOOD CULTURES ARE PENDING. A CHEST XRAY WAS RECEIVED TODAY AND REVEALED: INTERVAL WORSENING OF MULTIFOCAL BIBASILAR INFILTRATES/PNEUMONIA. SMALL TO MODERATE BILATERAL PNEURAL EFFUSIONS. SHE IS CURRENTLY RECEIVING NORMAL SALINE AT 50 ML/HR, ZOSYN 3.375G IV TID, AZITHROMYCIN 500MG IV DAILY, PEPCID 20MG IV DAILY, A PROTONIX DRIP, ZOFRAN 4MG IV Q6H PRN, DUONEBS QID, AND HIS HOME MEDICATIONS WERE RESUMED. WE WILL CONTINUE TO MONITOR H&H Q6H. OTHERWISE, WE PLAN TO FOLLOW UP WI TH AM LABS, CHEST XRAY, AND CONTINUE TO MONITOR. - Past Medical Family Social History Past Med/Fam/Surg Hx: No changes since H&P Allergies: Allergies ciprofloxacin Allergy (Verified 01/21/20 22:31) doxycycline Allergy (Verified 01/21/20 22:31) levofloxacin [From Levaquin] Allergy (Verified 01/21/20 22:31) meloxicam [From Mobic] Allergy (Verified 01/21/20 22:31) - Review of Systems ROS: No change since H&P - Vital Signs and I&O's Vital Signs: Temperature 98 F Pulse Rate [Left] 67 Pulse Rate 77 Respiratory Rate 18 Blood Pressure [Right Arm] 166/74 Blood Pressure 146/63 O2 Sat by Pulse Oximetry 100 Intake and Output: Intake & Output 01/21/20 01/22/20 01/23/20 01/24/20 11:59 11:59 11:59 11:59 Intake Total 500 / 500 2788 / 2788 2890 / 2890 Output Total 150 / 150 200 / 200 325 / 325 Balance 350 / 350 2588 / 2588 2565 / 2565 - Physical Exam Oriented: Person Eyes: Normal Ear: Normal Nose: Normal Throat: Normal Respiratory: Generalized, Wheezes Cardiovascular: Normal : Normal Auscultation: Bowel Sounds: Normal Palpation: Normal Tenderness: Diffuse, Mild Skin: Normal Musculoskeletal: Back:Lumbar, Pelvis, Tender Psychiatric: Normal Mood Description: Calm Affect: Normal Speech Pattern: Clear, Appropriate - Laboratory and Diagnostics Result Diagrams: 01/24/20 04:20 01/24/20 04:20 Labs: 01/21/20 18:28 Blood Blood Culture - Preliminary 01/21/20 18:25 Blood Blood Culture - Preliminary Laboratory WBC 14.5 X10^3/uL (3.6-10.0) H 01/24/20 04:20 RBC 2.69 X10^6/uL (4.7-6.0) L 01/24/20 04:20 Hgb 7.9 g/dL (13.5-18.0) L 01/24/20 04:20 Hct 24.0 % (42.0-54.0) L 01/24/20 04:20 MCV 89.4 fL (80.0-100.0) 01/24/20 04:20 MCH 29.5 pg (27.0-34.0) 01/24/20 04:20 MCHC 33.0 g/dL (33.0-35.0) 01/24/20 04:20 RDW 15.0 % (11.6-16.5) 01/24/20 04:20 Plt Count 435 X10^3/uL (150.0-450.0) 01/24/20 04:20 Plt Count Comment Increased (ADEQUATE) 01/24/20 04:20 MPV 7.0 fL (7.4-11.0) L 01/24/20 04:20 Neut % (Auto) 74.6 % (42.0-75.0) 01/24/20 04:20 Lymph % (Auto) 11.4 % (21.0-51.0) L 01/24/20 04:20 Wilkin % (Auto) 7.5 % (0.0-13.0) 01/24/20 04:20 Eos % (Auto) 5.9 % (0.9-2.9) H 01/24/20 04:20 Baso % (Auto) 0.6 % (0.2-1.0) 01/24/20 04:20 Neut # (Auto) 10.8 x10^3/uL (2.2-4.8) H 01/24/20 04:20 Lymph # (Auto) 1.7 X10^3/uL (1.3-2.9) 01/24/20 04:20 Wilkin # (Auto) 1.1 x10^3/uL (0.3-0.8) H 01/24/20 04:20 Eos # (Auto) 0.9 x10^3/uL (0.0-0.2) H 01/24/20 04:20 Baso # (Auto) 0.1 X10^3/uL (0.0-0.1) 01/24/20 04:20 Absolute Nucleated RBC 0.0 /100WBC 01/24/20 04:20 Total Counted 100 01/22/20 05:10 Neutrophils % (Manual) 98 % (39-76) H 01/22/20 05:10 Band Neutrophils % 4 % (0-10) 01/21/20 18:25 Lymphocytes % (Manual) 2 % (13-43) L 01/22/20 05:10 Monocytes % (Manual) 4 % (4-9) 01/21/20 18:25 Eosinophils % (Manual) 1 % (0-6) 01/21/20 18:25 Plt Morphology Comment Normal (NORMAL) 01/24/20 04:20 RBC Morphology Normal (NORMAL) 01/24/20 04:20 Hypochromasia Slight A 01/21/20 18:25 Poikilocytosis Slight A 01/21/20 18:25 Sample Site Rr 01/21/20 23:26 ABG pH 7.530 (7.35-7.45) H 01/21/20 23:26 ABG pCO2 33.0 mmHg (35.0-45.0) L 01/21/20 23:26 ABG pO2 108.0 mmHg (80.0-100.0) H 01/21/20 23:26 ABG HCO3 27.6 mmol/L (22-26) H 01/21/20 23:26 ABG O2 Saturation 99.0 % (90-100) 01/21/20 23:26 ABG Base Excess 5.0 mmol/L (-2.0-2.0) H 01/21/20 23:26 Dani Test Pos 01/21/20 23:26 A-a Gradient 50.0 mmHg 01/21/20 23:26 FiO2 28.0 01/21/20 23:26 Blood Gas Comments Sarah well sw 01/21/20 23:26 Sodium 142 mmol/L (136-145) 01/24/20 04:20 Corrected Sodium TNP 01/24/20 04:20 Potassium 4.1 mmol/L (3.5-5.1) 01/24/20 04:20 Chloride 109 mmol/L (98-107) H 01/24/20 04:20 Carbon Dioxide 25.0 mmol/L (21-32) 01/24/20 04:20 BUN 37 mg/dL (7-18) H 01/24/20 04:20 Creatinine 1.70 mg/dL (0.70-1.30) H 01/24/20 04:20 Est GFR (MDRD) Af Amer 49 (>60) L 01/24/20 04:20 Est GFR (MDRD) Non-Af 41 (>60) L 01/24/20 04:20 Glucose 80 mg/dL (65-99) 01/24/20 04:20 Lactic Acid 1.4 mmol/L (0.4-2.0) 01/21/20 18:25 Calcium 8.4 mg/dL (8.5-10.1) L 01/24/20 04:20 Corrected Calcium 10.0 mg/dL (8.5-10.1) 01/24/20 04:20 Ferritin 502 ng/mL (26-388) H 01/21/20 18:25 Total Bilirubin 0.30 mg/dL (0.2-1.0) 01/24/20 04:20 AST 17 Units/L (15-37) 01/24/20 04:20 ALT 16 Units/L (12-78) 01/24/20 04:20 Alkaline Phosphatase 89 Units/L (46-116) 01/24/20 04:20 Creatine Kinase 24 Units/L (39-308) L 01/22/20 05:10 CK-MB (CK-2) 1.0 ng/mL (0-4.0) 01/22/20 05:10 CK/CKMB % Calc 4.2 % (<4) 01/22/20 05:10 Troponin I < 0.02 ng/mL (0-1.5) 01/22/20 05:10 C-Reactive Protein 61.40 mg/L (0-3.0) H 01/24/20 04:20 Total Protein 6.9 g/dL (6.4-8.2) 01/24/20 04:20 Albumin 2.0 g/dL (3.4-5.0) L 01/24/20 04:20 Globulin 4.9 g/dL (2.5-4.5) H 01/24/20 04:20 Albumin/Globulin Ratio 0.4 Ratio (1.1-2.1) L 01/24/20 04:20 Amylase 39 Units/L (25-115) 01/22/20 05:10 Lipase 77 Units/L (73-393) 01/22/20 05:10 Specimen Type Clean catch urine 01/22/20 00:50 Urine Color Yellow (YELLOW) 01/22/20 00:50 Urine Appearance Clear (CLEAR) 01/22/20 00:50 Urine pH 8.0 (5.0 - 8.0) 01/22/20 00:50 Ur Specific [place] 1.010 (1.000-1.030) 01/22/20 00:50 Urine Protein 2+ (NEGATIVE) 01/22/20 00:50 Urine Glucose (UA) Negative (NEGATIVE) 01/22/20 00:50 Urine Ketones Negative (NEGATIVE) 01/22/20 00:50 Urine Occult Blood 2+ (NEGATIVE) 01/22/20 00:50 Urine Nitrite Negative (NEGATIVE) 01/22/20 00:50 Urine Bilirubin Negative (NEGATIVE) 01/22/20 00:50 Urine Urobilinogen Normal (NORMAL) 01/22/20 00:50 Ur Leukocyte Esterase 1+ (NEGATIVE) 01/22/20 00:50 Urine RBC 3-5 /HPF (0-3) A 01/22/20 00:50 Urine WBC 0-2 /HPF (0-5) 01/22/20 00:50 Ur Squamous Epith Cells Few /HPF (NEGATIVE) 01/22/20 00:50 Urine Bacteria Trace /HPF (NEGATIVE) 01/22/20 00:50 Ur Culture Indicated? No/not indicated 01/22/20 00:50 Gastric Fluid pH 4 01/22/20 02:19 Gastric Occult Blood Positive (NEGATIVE) A 01/22/20 02:19 Stool Description Ifob 01/22/20 05:20 Stl Occult Blood (IFOB) Positive (NEGATIVE) A 01/22/20 05:20 SARS-CoV-2 (PCR) Negative (NEGATIVE) 01/21/20 23:28 Blood Type O POSITIVE 01/22/20 10:55 Antibody Screen Negative 01/22/20 10:55 Crossmatch See Detail 01/22/20 10:55 - Plan (1) Pneumonia Status: Acute Qualifiers: Pneumonia type: due to unspecified organism Laterality: bilateral Lung location: unspecified part of lung Qualified Code(s): J18.9 - Pneumonia, unspecified organism Plan: NORMAL SALINE AT 50 ML/HR, ZOSYN 3.375G IV TID, AZITHROMYCIN 500MG IV DAILY, PEPCID 20MG IV DAILY, A PROTONIX DRIP, ZOFRAN 4MG IV Q6H PRN, DUONEBS QID, AND HIS HOME MEDICATIONS WERE RESUMED (2) Hypoxia Status: Acute (3) GI bleed Status: Acute Qualifiers: GI bleed type/associated pathology: gastritis Gastritis type: acute gastritis Qualified Code(s): K29.01 - Acute gastritis with bleeding (4) Anemia Status: Acute Qualifiers: Anemia type: unspecified type Qualified Code(s): D64.9 - Anemia, unspecified Plan: MONITOR H&H Q6H, CONTINUE TO MONITOR (5) Gastritis Status: Acute Qualifiers: Gastritis type: unspecified gastritis Chronicity: acute Gastritis bleeding: with bleeding Qualified Code(s): K29.01 - Acute gastritis with bleeding
--- NOTE | 2020-01-24 11:16 | PCM.PROG ---
Progress Note - Progress Note for Day of Date of Exam: 01/24/20 - Subjective Subjective: IS BEING TREATED FOR PNEUMONIA WITH HYPOXIA, GI BLEED, GASTRITIS, AND ANEMIA. HE HAD TO RECEIVE TWO UNITS OF PRBC SINCE ADMISSION. STAFF REPORTS THAT HE CONTINUES TO BE DISORIENTED, CONFUSED, AND RESTLESS. HE HAS ATTEMPTED TO GET OUT OF BED MULTIPLE TIMES. HE IS PULLING AT IV LINES AND MESSING WITH EQUIPMENT. HE CONTINUES TO BE DISORIENTED THIS MORNING. ON EXAMINATION, HEART IS REGULAR IN RATE AND RHYTHM. BILATERAL LUNGS ARE NOTED WITH SCATTERED WHEEZING THROUGHOUT. ABDOMEN IS ROUND, SOFT, AND NOTED WITH DIFFUSED TENDERNESS TO PALPATION. INCREASED BOWEL SOUNDS NOTED. HIS VITALS THIS MORNING ARE: 98.0-67-18-98%-166/74. LABS WERE OBTAINED. ABNORMAL LAB VALUES INCLUDE THE FOLLOWING: WBC 14.5, RBC 2.69, HGB 7.9, HCT 24.0, CHLORIDE 109, BUN 37, CREATININE 1.70, CALCIUM 8.4, CRP 61.40, ALBUMIN 2.0, GLOBULIN 4.9. COVID-19 PENDING. BLOOD CULTURES ARE PENDING. A CHEST XRAY WAS RECEIVED TODAY AND REVEALED: There is persistent cardiomegaly with improvement bilateral lower lobe pulmonary opacities. Layering bilateral pleural effusions are stable. No pneumothorax. SHE IS CURRENTLY RECEIVING NORMAL SALINE AT 50 ML/HR, ZOSYN 3.375G IV TID, AZITHROMYCIN 500MG IV DAILY, PEPCID 20MG IV DAILY, A PROTONIX DRIP, ZOFRAN 4MG IV Q6H PRN, DUONEBS QID, AND HIS HOME MEDICATIONS WERE RESUMED. WE WILL ADD GI COCKTAIL 10 ML PO QID TODAY AND WILL CONSULT WITH DUE TO ANEMIA AND GI BLEED. WE WILL CONTINUE TO MONITOR H&H Q6H. OTHERWISE, WE PLAN TO FOLLOW UP WITH AM LABS, CHEST XRAY, AND CONTINUE TO MONITOR. - Past Medical Family Social History Past Med/Fam/Surg Hx: No changes since H&P Allergies: Allergies ciprofloxacin Allergy (Verified 01/21/20 22:31) doxycycline Allergy (Verified 01/21/20 22:31) levofloxacin [From Levaquin] Allergy (Verified 01/21/20 22:31) meloxicam [From Mobic] Allergy (Verified 01/21/20 22:31) - Review of Systems ROS: No change since H&P - Vital Signs and I&O's Vital Signs: Temperature 98 F Pulse Rate [Left] 67 Pulse Rate 77 Respiratory Rate 18 Blood Pressure [Right Arm] 166/74 Blood Pressure 146/63 O2 Sat by Pulse Oximetry 100 Intake and Output: Intake & Output 01/21/20 01/22/20 01/23/20 01/24/20 11:59 11:59 11:59 11:59 Intake Total 500 / 500 2788 / 2788 2890 / 2890 Output Total 150 / 150 200 / 200 325 / 325 Balance 350 / 350 2588 / 2588 2565 / 2565 - Physical Exam Oriented: Person Eyes: Normal Ear: Normal Nose: Normal Throat: Normal Respiratory: Generalized, Wheezes Cardiovascular: Normal : Normal Auscultation: Bowel Sounds: Normal Tenderness: Diffuse, Mild Skin: Normal Musculoskeletal: Back:Lumbar, Pelvis, Tender Psychiatric: Normal Mood Description: Calm Affect: Normal Speech Pattern: Clear, Appropriate - Laboratory and Diagnostics Result Diagrams: 01/24/20 04:20 01/24/20 04:20 Labs: 01/21/20 18:28 Blood Blood Culture - Preliminary 01/21/20 18:25 Blood Blood Culture - Preliminary Laboratory WBC 14.5 X10^3/uL (3.6-10.0) H 01/24/20 04:20 RBC 2.69 X10^6/uL (4.7-6.0) L 01/24/20 04:20 Hgb 7.9 g/dL (13.5-18.0) L 01/24/20 04:20 Hct 24.0 % (42.0-54.0) L 01/24/20 04:20 MCV 89.4 fL (80.0-100.0) 01/24/20 04:20 MCH 29.5 pg (27.0-34.0) 01/24/20 04:20 MCHC 33.0 g/dL (33.0-35.0) 01/24/20 04:20 RDW 15.0 % (11.6-16.5) 01/24/20 04:20 Plt Count 435 X10^3/uL (150.0-450.0) 01/24/20 04:20 Plt Count Comment Increased (ADEQUATE) 01/24/20 04:20 MPV 7.0 fL (7.4-11.0) L 01/24/20 04:20 Neut % (Auto) 74.6 % (42.0-75.0) 01/24/20 04:20 Lymph % (Auto) 11.4 % (21.0-51.0) L 01/24/20 04:20 [place] % (Auto) 7.5 % (0.0-13.0) 01/24/20 04:20 Eos % (Auto) 5.9 % (0.9-2.9) H 01/24/20 04:20 Baso % (Auto) 0.6 % (0.2-1.0) 01/24/20 04:20 Neut # (Auto) 10.8 x10^3/uL (2.2-4.8) H 01/24/20 04:20 Lymph # (Auto) 1.7 X10^3/uL (1.3-2.9) 01/24/20 04:20 [place] # (Auto) 1.1 x10^3/uL (0.3-0.8) H 01/24/20 04:20 Eos # (Auto) 0.9 x10^3/uL (0.0-0.2) H 01/24/20 04:20 Baso # (Auto) 0.1 X10^3/uL (0.0-0.1) 01/24/20 04:20 Absolute Nucleated RBC 0.0 /100WBC 01/24/20 04:20 Total Counted 100 01/22/20 05:10 Neutrophils % (Manual) 98 % (39-76) H 01/22/20 05:10 Band Neutrophils % 4 % (0-10) 01/21/20 18:25 Lymphocytes % (Manual) 2 % (13-43) L 01/22/20 05:10 Monocytes % (Manual) 4 % (4-9) 01/21/20 18:25 Eosinophils % (Manual) 1 % (0-6) 01/21/20 18:25 Plt Morphology Comment Normal (NORMAL) 01/24/20 04:20 RBC Morphology Normal (NORMAL) 01/24/20 04:20 Hypochromasia Slight A 01/21/20 18:25 Poikilocytosis Slight A 01/21/20 18:25 Sample Site Rr 01/21/20 23:26 ABG pH 7.530 (7.35-7.45) H 01/21/20 23:26 ABG pCO2 33.0 mmHg (35.0-45.0) L 01/21/20 23:26 ABG pO2 108.0 mmHg (80.0-100.0) H 01/21/20 23:26 ABG HCO3 27.6 mmol/L (22-26) H 01/21/20 23:26 ABG O2 Saturation 99.0 % (90-100) 01/21/20 23:26 ABG Base Excess 5.0 mmol/L (-2.0-2.0) H 01/21/20 23:26 Dani Test Pos 01/21/20 23:26 A-a Gradient 50.0 mmHg 01/21/20 23:26 FiO2 28.0 01/21/20 23:26 Blood Gas Comments Sarah well sw 01/21/20 23:26 Sodium 142 mmol/L (136-145) 01/24/20 04:20 Corrected Sodium TNP 01/24/20 04:20 Potassium 4.1 mmol/L (3.5-5.1) 01/24/20 04:20 Chloride 109 mmol/L (98-107) H 01/24/20 04:20 Carbon Dioxide 25.0 mmol/L (21-32) 01/24/20 04:20 BUN 37 mg/dL (7-18) H 01/24/20 04:20 Creatinine 1.70 mg/dL (0.70-1.30) H 01/24/20 04:20 Est GFR (MDRD) Af Amer 49 (>60) L 01/24/20 04:20 Est GFR (MDRD) Non-Af 41 (>60) L 01/24/20 04:20 Glucose 80 mg/dL (65-99) 01/24/20 04:20 Lactic Acid 1.4 mmol/L (0.4-2.0) 01/21/20 18:25 Calcium 8.4 mg/dL (8.5-10.1) L 01/24/20 04:20 Corrected Calcium 10.0 mg/dL (8.5-10.1) 01/24/20 04:20 Ferritin 502 ng/mL (26-388) H 01/21/20 18:25 Total Bilirubin 0.30 mg/dL (0.2-1.0) 01/24/20 04:20 AST 17 Units/L (15-37) 01/24/20 04:20 ALT 16 Units/L (12-78) 01/24/20 04:20 Alkaline Phosphatase 89 Units/L (46-116) 01/24/20 04:20 Creatine Kinase 24 Units/L (39-308) L 01/22/20 05:10 CK-MB (CK-2) 1.0 ng/mL (0-4.0) 01/22/20 05:10 CK/CKMB % Calc 4.2 % (<4) 01/22/20 05:10 Troponin I < 0.02 ng/mL (0-1.5) 01/22/20 05:10 C-Reactive Protein 61.40 mg/L (0-3.0) H 01/24/20 04:20 Total Protein 6.9 g/dL (6.4-8.2) 01/24/20 04:20 Albumin 2.0 g/dL (3.4-5.0) L 01/24/20 04:20 Globulin 4.9 g/dL (2.5-4.5) H 01/24/20 04:20 Albumin/Globulin Ratio 0.4 Ratio (1.1-2.1) L 01/24/20 04:20 Amylase 39 Units/L (25-115) 01/22/20 05:10 Lipase 77 Units/L (73-393) 01/22/20 05:10 Specimen Type Clean catch urine 01/22/20 00:50 Urine Color Yellow (YELLOW) 01/22/20 00:50 Urine Appearance Clear (CLEAR) 01/22/20 00:50 Urine pH 8.0 (5.0 - 8.0) 01/22/20 00:50 Ur Specific [place] 1.010 (1.000-1.030) 01/22/20 00:50 Urine Protein 2+ (NEGATIVE) 01/22/20 00:50 Urine Glucose (UA) Negative (NEGATIVE) 01/22/20 00:50 Urine Ketones Negative (NEGATIVE) 01/22/20 00:50 Urine Occult Blood 2+ (NEGATIVE) 01/22/20 00:50 Urine Nitrite Negative (NEGATIVE) 01/22/20 00:50 Urine Bilirubin Negative (NEGATIVE) 01/22/20 00:50 Urine Urobilinogen Normal (NORMAL) 01/22/20 00:50 Ur Leukocyte Esterase 1+ (NEGATIVE) 01/22/20 00:50 Urine RBC 3-5 /HPF (0-3) A 01/22/20 00:50 Urine WBC 0-2 /HPF (0-5) 01/22/20 00:50 Ur Squamous Epith Cells Few /HPF (NEGATIVE) 01/22/20 00:50 Urine Bacteria Trace /HPF (NEGATIVE) 01/22/20 00:50 Ur Culture Indicated? No/not indicated 01/22/20 00:50 Gastric Fluid pH 4 01/22/20 02:19 Gastric Occult Blood Positive (NEGATIVE) A 01/22/20 02:19 Stool Description Ifob 01/22/20 05:20 Stl Occult Blood (IFOB) Positive (NEGATIVE) A 01/22/20 05:20 SARS-CoV-2 (PCR) Negative (NEGATIVE) 01/21/20 23:28 Blood Type O POSITIVE 01/22/20 10:55 Antibody Screen Negative 01/22/20 10:55 Crossmatch See Detail 01/22/20 10:55 - Plan (1) Pneumonia Status: Acute Qualifiers: Pneumonia type: due to unspecified organism Laterality: bilateral Lung location: unspecified part of lung Qualified Code(s): J18.9 - Pneumonia, unspecified organism Plan: NORMAL SALINE AT 50 ML/HR, ZOSYN 3.375G IV TID, AZITHROMYCIN 500MG IV DAILY, PEPCID 20MG IV DAILY, A PROTONIX DRIP, ZOFRAN 4MG IV Q6H PRN, DUONEBS QID, AND HIS HOME MEDICATIONS WERE RESUMED (2) Hypoxia Status: Acute (3) GI bleed Status: Acute Qualifiers: GI bleed type/associated pathology: gastritis Gastritis type: acute gastritis Qualified Code(s): K29.01 - Acute gastritis with bleeding (4) Anemia Status: Acute Qualifiers: Anemia type: unspecified type Qualified Code(s): D64.9 - Anemia, unspecified Plan: MONITOR H&H Q6H, CONTINUE TO MONITOR (5) Gastritis Status: Acute Qualifiers: Gastritis type: unspecified gastritis Chronicity: acute Gastritis bleeding: with bleeding Qualified Code(s): K29.01 - Acute gastritis with bleeding Plan: CONSULT GENERAL SUGERY, CONTINUE TO MONITOR
[2020-01-24] MEDS ORDERED: XYLOCAINE 2 % (PLAIN) ONE (12:21)
[2020-01-24] MEDS ORDERED: DIPRIVAN VIAL 20 ML ONE (12:21)
--- NOTE | 2020-01-24 13:04 | OR.IMMED ---
Immediate Post-Op Note - Immediate Post-Op Note Pre-Op Diagnosis: anemia , GI bleeding Post-Op Diagnosis: large prepyloric ulcer . no active bleeding . distal esophagitis . Procedure: EGD with Bx's Surgeon/M48 M60 Armor Crewman: Ian Specimens Removed: from antrum and esophagus Drains: NONE Complications: no Condition: Stable Post Hospital Plans and Medications: on IV Protonix . oral Carafate .
[2020-01-24] MEDS: LEVSIN/MAALOX/LIDOC VISC PO SCH ×4 (13:47→20:45)
[2020-01-24] MEDS: CARAFATE PO SCH ×2 (13:48→21:19)
[2020-01-24] MEDS: NS 1000 ML 1,000 ML IV SCH ×2 (16:18→21:20)
[2020-01-24] MEDS: BUTT CREAM (COMPOUND) TOP PRN ×2 (17:12→21:20)
[2020-01-24 17:15] LABS: HEMATOCRIT 25.1 % (42.0-54.0); HEMOGLOBIN 8.1 g/dL (13.5-18.0)
[2020-01-24] MEDS: PHENERGAN INJ 25 MG IM PRN (19:30)
[2020-01-24] MEDS: RESTORIL CAP 15 MG PO PRN (19:42)
[2020-01-24] MEDS: TUSSIONEX PENNKINETIC SUSP PO PRN (19:42)
[2020-01-24] MEDS ORDERED: NS 250 ML IV 250 ML IV ONE (20:06)
[2020-01-24] MEDS: BRINZOLAMIDE RIGHTEYE SCH (20:43)
[2020-01-24] MEDS: NEURONTIN CAP 300 MG PO SCH (21:17)
[2020-01-24] MEDS: SINGULAIR TAB 10 MG PO SCH (21:18)
[2020-01-24] MEDS: ZANAFLEX PO SCH (21:18)
[2020-01-24] MEDS: ZITHROMAX INJ 500 MG VIAL 500 MG in D5W 250 ML IV 250 ML IV SCH (21:18)
[2020-01-24 23:39] LABS: HEMATOCRIT 20.9 % (42.0-54.0)
[2020-01-24 23:41] LABS: HEMOGLOBIN 6.7 g/dL (13.5-18.0)
[2020-01-25] MEDS ORDERED: HALDOL INJ IM ONE (00:10)
[2020-01-25] MEDS ORDERED: HALDOL INJ IM PRN (00:12)
[2020-01-25] MEDS ORDERED: NS 250 ML IV 250 ML IV ONE ×2 (00:19)
[2020-01-25] MEDS ORDERED: HALDOL INJ ONE (04:32)
[2020-01-25] MEDS: NS 1000 ML 1,000 ML IV SCH ×2 (05:20→18:12)
[2020-01-25] MEDS: PROTONIX INJ 40 MG VIAL 80 MG in NS 100 ML IV 80 ML IV SCH ×4 (05:21→22:36)
[2020-01-25] MEDS: BUTT CREAM (COMPOUND) TOP PRN ×2 (05:23→22:45)
[2020-01-25] MEDS: DUONEB 0.5 MG/3 MG (3 mL) NEB SCH ×4 (08:43→20:10)
[2020-01-25] MEDS: PULMICORT NEB TX 0.5 MG NEB SCH ×2 (08:43→20:10)
[2020-01-25] MEDS ORDERED: LEXAPRO ONE (08:53)
[2020-01-25] MEDS ORDERED: ZOSYN VIAL 3.375 GRAMS IV ONE (09:01)
[2020-01-25 09:13] LABS: BASOPHILS # (AUTO) 0.1 X10^3/uL (0.0-0.1); BASOPHILS % (AUTO) 0.6 % (0.2-1.0); EOSINOPHILS # (AUTO) 0.4 x10^3/uL (0.0-0.2); EOSINOPHILS % (AUTO) 2.6 % (0.9-2.9); HEMATOCRIT 25.3 % (42.0-54.0); HEMOGLOBIN 8.5 g/dL (13.5-18.0); LYMPHOCYTES % (AUTO) 12.3 % (21.0-51.0); MEAN CORPUSCULAR HEMOGLOBIN 29.4 pg (27.0-34.0); MEAN CORPUSCULAR HGB CONC 33.5 g/dL (33.0-35.0); MEAN CORPUSCULAR VOLUME 87.6 fL (80.0-100.0); MEAN PLATELET VOLUME 6.8 fL (7.4-11.0); MONOCYTES # (AUTO) 0.9 x10^3/uL (0.3-0.8); MONOCYTES % (AUTO) 5.9 % (0.0-13.0); NEUTROPHILS # (AUTO) 12.5 x10^3/uL (2.2-4.8); NEUTROPHILS % (AUTO) 78.6 % (42.0-75.0); PLATELET COUNT 357 X10^3/uL (150.0-450.0); RED BLOOD COUNT 2.89 X10^6/uL (4.7-6.0); RED CELL DISTRIBUTION WIDTH 15.3 % (11.6-16.5); WHITE BLOOD COUNT 15.9 X10^3/uL (3.6-10.0)
--- NOTE | 2020-01-25 09:15 | RAD ---
HISTORYSOB, COPD, prostate cancerSTUDYX-ray CHEST, 1 VIEWCOMPARISONX-ray 01/1920FINDINGSPossible CHF. Bilateral lung densities are similar to prior study and may be a combination of pneumonia and pulmonary edema. There are moderate bilateral pleural effusions that are similar to prior study. No pneumothorax is seen.IMPRESSIONAppearance of the chest is similar to prior study.Electronically signed by: Farzad Enriquez (Jan 25, 2020 09:14:28)
[2020-01-25] MEDS: CARAFATE PO SCH ×3 (09:20→22:44)
[2020-01-25] MEDS: XANAX PO SCH ×3 (09:22→22:44)
[2020-01-25] MEDS: VSL#3 PO SCH (09:22)
[2020-01-25] MEDS: TAB-A-VITE PO SCH ×2 (09:22→22:43)
[2020-01-25] MEDS: COLACE CAP 100 MG PO SCH ×2 (09:23→22:39)
[2020-01-25] MEDS: LOPRESSOR TAB 25 MG PO SCH ×2 (09:23→22:40)
[2020-01-25] MEDS: REQUIP PO SCH ×2 (09:23→22:41)
[2020-01-25] MEDS: DEMADEX PO SCH (09:23)
[2020-01-25] MEDS: ZOSYN VIAL 3.375 GRAMS 3.375 G in NS 100 ML IV + SPIKE MINIBAG* 100 ML IV SCH ×3 (09:24→22:44)
[2020-01-25] MEDS: ARTIFICIAL TEARS DROPS OP SCH ×2 (09:25→22:37)
[2020-01-25] MEDS: BRINZOLAMIDE RIGHTEYE SCH ×2 (09:26→22:37)
[2020-01-25] MEDS: BUSPAR PO SCH (09:27)
[2020-01-25] MEDS: ARIMIDEX PO SCH (09:28)
[2020-01-25] MEDS: LEXAPRO PO SCH (09:28)
[2020-01-25] MEDS: FERROUS GLUCONATE PO SCH ×2 (09:29→22:39)
[2020-01-25] MEDS: EXELON PO SCH ×2 (09:29→22:39)
[2020-01-25 09:30] LABS: ALANINE AMINOTRANSFERASE 20 Units/L (12-78); ALKALINE PHOSPHATASE 84 Units/L (46-116); ASPARTATE AMINO TRANSFERASE 40 Units/L (15-37); BLOOD UREA NITROGEN 39 mg/dL (7-18); CALCIUM 8.1 mg/dL (8.5-10.1); CARBON DIOXIDE 21.3 mmol/L (21-32); CHLORIDE 109 mmol/L (98-107); COR CA(FOR HYPOALB) 9.7 mg/dL (8.5-10.1); CREATININE 1.54 mg/dL (0.70-1.30); SODIUM 142 mmol/L (136-145); TOTAL PROTEIN 6.5 g/dL (6.4-8.2); eGFR NON BLACK RACES 45 (>60)
[2020-01-25] MEDS: LEVSIN/MAALOX/LIDOC VISC PO SCH ×4 (09:30→22:39)
[2020-01-25] MEDS: PEPCID 20 MG IV PREMIX* 20 MG/50 ML BAG IV SCH (09:32)
[2020-01-25] MEDS: MIRALAX POWDER (1 DOSE 17 G) PO SCH (09:33)
[2020-01-25] MEDS ORDERED: LEVSIN/MAALOX/LIDOC VISC PO ONE (10:53)
--- NOTE | 2020-01-25 11:42 | PCM.PROG ---
Progress Note - Progress Note for Day of Date of Exam: 01/25/20 - Subjective Subjective: IS BEING TREATED FOR PNEUMONIA WITH HYPOXIA, GI BLEED, GASTRITIS, AND ANEMIA. HE RECEIVED AN ADDITIONAL TWO UNITS OF PRBC THIS MORNING DUE TO HEMOGLOBIN FALLING TO 6.7, FOR A TOTAL OF 4 UNITS SINCE ADMISSION. TOOK PATIENT TO THE OR FOR AN EGD YESTERDAY. IT REVEALED A LARGE PREPYLORIC ULCER WITH ONLY MILD BLEEDING AT THE TIME. NO ACTIVE BLEEDING IN THE STOMACH OR DUODENUM WAS NOTED. STAFF REPORTS THAT HE CONTINUES TO BE DISORIENTED, CONFUSED, AND RESTLESS. HE CONTINUES TO BE DISORIENTED THIS MORNING. ON EXAMINATION, HEART IS REGULAR IN RATE AND RHYTHM. BILATERAL LUNGS ARE NOTED WITH SCATTERED WHEEZING THROUGHOUT. ABDOMEN IS ROUND, SOFT, AND NOTED WITH DIFFUSED TENDERNESS TO PALPATION. INCREASED BOWEL SOUNDS NOTED. HIS VITALS THIS MORNING ARE: 97.8-83-21-100%-117/69. LABS WERE OBTAINED. ABNORMAL LAB VALUES INCLUDE THE FOLLOWING: WBC 15.9, RBC 2.89, HGB 8.5, HCT 25.3, CHLORIDE 109, BUN 39, CREATININE 1.54, GLUCOSE 103, CALCIUM 8.1, AST 40, CRP 46.20, ALBUMIN 2.0. COVID-19 PENDING. BLOOD CULTURES ARE PENDING. A CHEST XRAY WAS RECEIVED TODAY AND REVEALED: Possible CHF. Bilateral lung densities are similar to prior study and may be a combination of pneumonia and pulmonary edema. There are moderate bilateral pleural effusions that are similar to prior study. No pneumothorax is seen. HE IS CURRENTLY RECEIVING NORMAL SALINE AT 50 ML/HR, ZOSYN 3.375G IV TID, AZITHROMYCIN 500MG IV DAILY, GI COCKTAIL 10 ML PO QID, PEPCID 20MG IV DAILY, A PROTONIX DRIP, ZOFRAN 4MG IV Q6H PRN, DUONEBS QID, AND HIS HOME MEDICATIONS WERE RESUMED. WE WILL CONTINUE TO MONITOR H&H Q6H. OTHERWISE, WE PLAN TO FOLLOW UP WITH AM LABS, CHEST XRAY, AND CONTINUE TO MONITOR. - Past Medical Family Social History Past Med/Fam/Surg Hx: No changes since H&P Allergies: Allergies ciprofloxacin Allergy (Verified 01/21/20 22:31) doxycycline Allergy (Verified 01/21/20 22:31) levofloxacin [From Levaquin] Allergy (Verified 01/21/20 22:31) meloxicam [From Mobic] Allergy (Verified 01/21/20 22:31) - Review of Systems ROS: No change since H&P - Vital Signs and I&O's Vital Signs: Temperature 97.8 F Pulse Rate [Left] 83 Pulse Rate 84 Respiratory Rate 16 Blood Pressure [Right Arm] 117/69 Blood Pressure 146/63 O2 Sat by Pulse Oximetry 100 Intake and Output: Intake & Output 01/22/20 01/23/20 01/24/20 01/25/20 11:59 11:59 11:59 11:59 Intake Total 500 / 500 2788 / 2788 2890 / 2890 1821 / 1821 Output Total 150 / 150 200 / 200 325 / 525 300 / 300 Balance 350 / 350 2588 / 2588 2565 / 2365 1521 / 1521 - Physical Exam Oriented: Person Eyes: Normal Ear: Normal Nose: Normal Throat: Normal Respiratory: Generalized, Wheezes Cardiovascular: Normal : Normal Auscultation: Bowel Sounds: Normal Tenderness: Diffuse, Mild Skin: Normal Musculoskeletal: Back:Lumbar, Pelvis, Tender Psychiatric: Normal Mood Description: Calm Affect: Normal Speech Pattern: Clear, Appropriate - Laboratory and Diagnostics Result Diagrams: 01/25/20 08:50 01/25/20 08:50 Labs: 01/21/20 18:28 Blood Blood Culture - Preliminary 01/21/20 18:25 Blood Blood Culture - Preliminary Laboratory WBC 15.9 X10^3/uL (3.6-10.0) H 01/25/20 08:50 RBC 2.89 X10^6/uL (4.7-6.0) L 01/25/20 08:50 Hgb 8.5 g/dL (13.5-18.0) L 01/25/20 08:50 Hct 25.3 % (42.0-54.0) L 01/25/20 08:50 MCV 87.6 fL (80.0-100.0) 01/25/20 08:50 MCH 29.4 pg (27.0-34.0) 01/25/20 08:50 MCHC 33.5 g/dL (33.0-35.0) 01/25/20 08:50 RDW 15.3 % (11.6-16.5) 01/25/20 08:50 Plt Count 357 X10^3/uL (150.0-450.0) 01/25/20 08:50 Plt Count Comment Increased (ADEQUATE) 01/24/20 04:20 MPV 6.8 fL (7.4-11.0) L 01/25/20 08:50 Neut % (Auto) 78.6 % (42.0-75.0) H 01/25/20 08:50 Lymph % (Auto) 12.3 % (21.0-51.0) L 01/25/20 08:50 [place] % (Auto) 5.9 % (0.0-13.0) 01/25/20 08:50 Eos % (Auto) 2.6 % (0.9-2.9) 01/25/20 08:50 Baso % (Auto) 0.6 % (0.2-1.0) 01/25/20 08:50 Neut # (Auto) 12.5 x10^3/uL (2.2-4.8) H 01/25/20 08:50 Lymph # (Auto) 2.0 X10^3/uL (1.3-2.9) 01/25/20 08:50 [place] # (Auto) 0.9 x10^3/uL (0.3-0.8) H 01/25/20 08:50 Eos # (Auto) 0.4 x10^3/uL (0.0-0.2) H 01/25/20 08:50 Baso # (Auto) 0.1 X10^3/uL (0.0-0.1) 01/25/20 08:50 Absolute Nucleated RBC 0.0 /100WBC 01/25/20 08:50 Total Counted 100 01/22/20 05:10 Neutrophils % (Manual) 98 % (39-76) H 01/22/20 05:10 Band Neutrophils % 4 % (0-10) 01/21/20 18:25 Lymphocytes % (Manual) 2 % (13-43) L 01/22/20 05:10 Monocytes % (Manual) 4 % (4-9) 01/21/20 18:25 Eosinophils % (Manual) 1 % (0-6) 01/21/20 18:25 Plt Morphology Comment Normal (NORMAL) 01/24/20 04:20 RBC Morphology Normal (NORMAL) 01/24/20 04:20 Hypochromasia Slight A 01/21/20 18:25 Poikilocytosis Slight A 01/21/20 18:25 Sample Site Rr 01/21/20 23:26 ABG pH 7.530 (7.35-7.45) H 01/21/20 23:26 ABG pCO2 33.0 mmHg (35.0-45.0) L 01/21/20 23:26 ABG pO2 108.0 mmHg (80.0-100.0) H 01/21/20 23:26 ABG HCO3 27.6 mmol/L (22-26) H 01/21/20 23:26 ABG O2 Saturation 99.0 % (90-100) 01/21/20 23: ABG Base Excess 5.0 mmol/L (-2.0-2.0) H 01/21/20 23:26 Dani Test Pos 01/21/20 23:26 A-a Gradient 50.0 mmHg 01/21/20 23:26 FiO2 28.0 01/21/20 23:26 Blood Gas Comments Sarah well sw 01/21/20 23:26 Sodium 142 mmol/L (136-145) 01/25/20 08:50 Corrected Sodium TNP 01/25/20 08:50 Potassium 4.5 mmol/L (3.5-5.1) 01/25/20 08:50 Chloride 109 mmol/L (98-107) H 01/25/20 08:50 Carbon Dioxide 21.3 mmol/L (21-32) 01/25/20 08:50 BUN 39 mg/dL (7-18) H 01/25/20 08:50 Creatinine 1.54 mg/dL (0.70-1.30) H 01/25/20 08:50 Est GFR (MDRD) Af Amer 55 (>60) L 01/25/20 08:50 Est GFR (MDRD) Non-Af 45 (>60) L 01/25/20 08:50 Glucose 103 mg/dL (65-99) H 01/25/20 08:50 Lactic Acid 1.4 mmol/L (0.4-2.0) 01/21/20 18:25 Calcium 8.1 mg/dL (8.5-10.1) L 01/25/20 08:50 Corrected Calcium 9.7 mg/dL (8.5-10.1) 01/25/20 08:50 Ferritin 502 ng/mL (26-388) H 01/21/20 18:25 Total Bilirubin 0.50 mg/dL (0.2-1.0) 01/25/20 08:50 AST 40 Units/L (15-37) H 01/25/20 08:50 ALT 20 Units/L (12-78) 01/25/20 08:50 Alkaline Phosphatase 84 Units/L (46-116) 01/25/20 08:50 Creatine Kinase 24 Units/L (39-308) L 01/22/20 05:10 CK-MB (CK-2) 1.0 ng/mL (0-4.0) 01/22/20 05:10 CK/CKMB % Calc 4.2 % (<4) 01/22/20 05:10 Troponin I < 0.02 ng/mL (0-1.5) 01/22/20 05:10 C-Reactive Protein 46.20 mg/L (0-3.0) H 01/25/20 08:50 Total Protein 6.5 g/dL (6.4-8.2) 01/25/20 08:50 Albumin 2.0 g/dL (3.4-5.0) L 01/25/20 08:50 Globulin 4.5 g/dL (2.5-4.5) 01/25/20 08:50 Albumin/Globulin Ratio 0.4 Ratio (1.1-2.1) L 01/25/20 08:50 Amylase 39 Units/L (25-115) 01/22/20 05:10 Lipase 77 Units/L (73-393) 01/22/20 05:10 Specimen Type Clean catch urine 01/22/20 00:50 Urine Color Yellow (YELLOW) 01/22/20 00:50 Urine Appearance Clear (CLEAR) 01/22/20 00:50 Urine pH 8.0 (5.0 - 8.0) 01/22/20 00:50 Ur Specific [place] 1.010 (1.000-1.030) 01/22/20 00:50 Urine Protein 2+ (NEGATIVE) 01/22/20 00:50 Urine Glucose (UA) Negative (NEGATIVE) 01/22/20 00:50 Urine Ketones Negative (NEGATIVE) 01/22/20 00:50 Urine Occult Blood 2+ (NEGATIVE) 01/22/20 00:50 Urine Nitrite Negative (NEGATIVE) 01/22/20 00:50 Urine Bilirubin Negative (NEGATIVE) 01/22/20 00:50 Urine Urobilinogen Normal (NORMAL) 01/22/20 00:50 Ur Leukocyte Esterase 1+ (NEGATIVE) 01/22/20 00:50 Urine RBC 3-5 /HPF (0-3) A 01/22/20 00:50 Urine WBC 0-2 /HPF (0-5) 01/22/20 00:50 Ur Squamous Epith Cells Few /HPF (NEGATIVE) 01/22/20 00:50 Urine Bacteria Trace /HPF (NEGATIVE) 01/22/20 00:50 Ur Culture Indicated? No/not indicated 01/22/20 00:50 Gastric Fluid pH 4 01/22/20 02:19 Gastric Occult Blood Positive (NEGATIVE) A 01/22/20 02:19 Stool Description Ifob 01/22/20 05:20 Stl Occult Blood (IFOB) Positive (NEGATIVE) A 01/22/20 05:20 SARS-CoV-2 (PCR) Negative (NEGATIVE) 01/21/20 23:28 Tissue Pathology To follow 01/24/20 12:30 Blood Type O POSITIVE 01/22/20 10:55 Antibody Screen Negative 01/22/20 10:55 Crossmatch See Detail 01/22/20 10:55 - Plan (1) Pneumonia Status: Acute Qualifiers: Pneumonia type: due to unspecified organism Laterality: bilateral Lung location: unspecified part of lung Qualified Code(s): J18.9 - Pneumonia, unspecified organism Plan: NORMAL SALINE AT 50 ML/HR, ZOSYN 3.375G IV TID, AZITHROMYCIN 500MG IV DAILY, PEPCID 20MG IV DAILY, A PROTONIX DRIP, ZOFRAN 4MG IV Q6H PRN, DUONEBS QID, AND HIS HOME MEDICATIONS WERE RESUMED (2) Hypoxia Status: Acute (3) GI bleed Status: Acute Qualifiers: GI bleed type/associated pathology: gastritis Gastritis type: acute gastritis Qualified Code(s): K29.01 - Acute gastritis with bleeding (4) Anemia Status: Acute Qualifiers: Anemia type: unspecified type Qualified Code(s): D64.9 - Anemia, unspecified Plan: MONITOR H&H Q6H, CONTINUE TO MONITOR (5) Gastritis Status: Acute Qualifiers: Gastritis type: unspecified gastritis Chronicity: acute Gastritis bleeding: with bleeding Qualified Code(s): K29.01 - Acute gastritis with bleeding
[2020-01-25] MEDS ORDERED: VOLTAREN 1 % GEL MULTI DOSE TUBE ONE (12:29)
[2020-01-25] MEDS: VOLTAREN 1 % GEL MULTI DOSE TUBE TOP SCH ×2 (12:45→22:44)
[2020-01-25 15:29] LABS: HEMATOCRIT 25.5 % (42.0-54.0); HEMOGLOBIN 8.5 g/dL (13.5-18.0)
[2020-01-25] MEDS ORDERED: MORPHINE SULFATE INJ 2 MG INJ ONE (16:48)
[2020-01-25] MEDS: MORPHINE SULFATE INJ 2 MG INJ IVP PRN (16:53)
[2020-01-25 21:13] LABS: HEMATOCRIT 26.8 % (42.0-54.0); HEMOGLOBIN 8.7 g/dL (13.5-18.0)
[2020-01-25] MEDS: NEURONTIN CAP 300 MG PO SCH (22:40)
[2020-01-25] MEDS: ZITHROMAX INJ 500 MG VIAL 500 MG in D5W 250 ML IV 250 ML IV SCH (22:43)
[2020-01-25] MEDS: SINGULAIR TAB 10 MG PO SCH (22:43)
[2020-01-25] MEDS: ZANAFLEX PO SCH (22:43)
[2020-01-25] MEDS: RESTORIL CAP 15 MG PO PRN (22:44)
[2020-01-26 03:24] LABS: BASOPHILS # (AUTO) 0.1 X10^3/uL (0.0-0.1); EOSINOPHILS # (AUTO) 0.6 x10^3/uL (0.0-0.2); HEMOGLOBIN 7.6 g/dL (13.5-18.0); MONOCYTES # (AUTO) 0.9 x10^3/uL (0.3-0.8); RED BLOOD COUNT 2.56 X10^6/uL (4.7-6.0); WHITE BLOOD COUNT 10.6 X10^3/uL (3.6-10.0)
[2020-01-26 03:30] LABS: BASOPHILS % (AUTO) 0.7 % (0.2-1.0); EOSINOPHILS % (AUTO) 6.1 % (0.9-2.9); HEMATOCRIT 22.6 % (42.0-54.0); LYMPHOCYTES # (AUTO) 1.6 X10^3/uL (1.3-2.9); LYMPHOCYTES % (AUTO) 14.7 % (21.0-51.0); MEAN CORPUSCULAR HEMOGLOBIN 29.8 pg (27.0-34.0); MEAN CORPUSCULAR HGB CONC 33.8 g/dL (33.0-35.0); MEAN CORPUSCULAR VOLUME 88.2 fL (80.0-100.0); MONOCYTES % (AUTO) 8.2 % (0.0-13.0); NEUTROPHILS # (AUTO) 7.5 x10^3/uL (2.2-4.8); NEUTROPHILS % (AUTO) 70.3 % (42.0-75.0); PLATELET COUNT 338 X10^3/uL (150.0-450.0); RED CELL DISTRIBUTION WIDTH 15.2 % (11.6-16.5)
[2020-01-26 03:32] LABS: ALBUMIN 1.8 g/dL (3.4-5.0); CARBON DIOXIDE 25.7 mmol/L (21-32); COR CA(FOR HYPOALB) 9.8 mg/dL (8.5-10.1); CREATININE 1.72 mg/dL (0.70-1.30); TOTAL PROTEIN 6.1 g/dL (6.4-8.2)
[2020-01-26 03:51] LABS: PLATELET MORPHOLOGY COMMENT NORMAL (NORMAL)
--- NOTE | 2020-01-26 05:15 | RAD ---
HISTORYSOBSTUDYCHEST, 1 VIEWCOMPARISONFINDINGSThe trachea is midline. The cardiac silhouette is mildly enlarged, similar to prior exam. Interval decrease in patchy middle and lower lung zone pulmonary opacity bilaterally. Decrease in left pleural effusion. Persistent small right pleural effusion... The bony thorax is unremarkable.IMPRESSIONInterval decrease in patchy pulmonary opacities/infiltrates.Decrease in left pleural effusion. Small right pleural effusion persists.Electronically signed by: Brooklyn Gonzalez (Jan 26, 2020 05:13:49)
[2020-01-26] MEDS: PROTONIX INJ 40 MG VIAL 80 MG in NS 100 ML IV 80 ML IV SCH ×3 (05:30→15:12)
[2020-01-26] MEDS: VOLTAREN 1 % GEL MULTI DOSE TUBE TOP SCH ×3 (06:39→22:39)
[2020-01-26] MEDS: CARAFATE PO SCH ×3 (06:39→21:36)
[2020-01-26] MEDS: NS 1000 ML 1,000 ML IV SCH ×2 (06:39→20:02)
[2020-01-26] MEDS: ZOSYN VIAL 3.375 GRAMS 3.375 G in NS 100 ML IV + SPIKE MINIBAG* 100 ML IV SCH ×3 (06:39→22:00)
[2020-01-26] MEDS: XANAX PO SCH ×3 (06:39→22:00)
[2020-01-26] MEDS ORDERED: LEXAPRO ONE (08:08)
[2020-01-26] MEDS: PEPCID 20 MG IV PREMIX* 20 MG/50 ML BAG IV SCH (08:19)
[2020-01-26] MEDS: ARIMIDEX PO SCH (08:20)
[2020-01-26] MEDS: ARTIFICIAL TEARS DROPS OP SCH ×2 (08:20→21:00)
[2020-01-26] MEDS: BUSPAR PO SCH (08:21)
[2020-01-26] MEDS: BRINZOLAMIDE RIGHTEYE SCH ×2 (08:21→21:00)
[2020-01-26] MEDS: COLACE CAP 100 MG PO SCH (08:22)
[2020-01-26] MEDS: DEMADEX PO SCH (08:22)
[2020-01-26] MEDS: FERROUS GLUCONATE PO SCH ×2 (08:23→21:00)
[2020-01-26] MEDS: EXELON PO SCH ×2 (08:23→21:34)
[2020-01-26] MEDS: REQUIP PO SCH ×2 (08:24→21:37)
[2020-01-26] MEDS: LEVSIN/MAALOX/LIDOC VISC PO SCH ×4 (08:24→21:00)
[2020-01-26] MEDS: LEXAPRO PO SCH (08:25)
[2020-01-26] MEDS: TAB-A-VITE PO SCH ×2 (08:26→21:38)
[2020-01-26] MEDS: VSL#3 PO SCH (08:26)
[2020-01-26] MEDS: LOPRESSOR TAB 25 MG PO SCH ×2 (08:26→21:36)
[2020-01-26] MEDS: MIRALAX POWDER (1 DOSE 17 G) PO SCH (09:02)
[2020-01-26] MEDS: DUONEB 0.5 MG/3 MG (3 mL) NEB SCH ×4 (09:14→20:52)
[2020-01-26] MEDS: PULMICORT NEB TX 0.5 MG NEB SCH ×2 (09:14→20:53)
[2020-01-26 09:18] LABS: HEMATOCRIT 24.4 % (42.0-54.0)
--- NOTE | 2020-01-26 10:00 | PCM.PROG ---
Progress Note - Progress Note for Day of Date of Exam: 01/26/20 - Subjective Subjective: IS BEING TREATED FOR PNEUMONIA WITH HYPOXIA, GI BLEED, GASTRITIS, AND ANEMIA. HE HAS RECEIVED A TOTAL OF FOUR UNITS OF PRBC SINCE ADMISSION. TOOK PATIENT TO THE OR FOR AN EGD FRIDAY. IT REVEALED A LARGE PREPYLORIC ULCER WITH ONLY MILD BLEEDING AT THE TIME. NO ACTIVE BLEEDING IN THE STOMACH OR DUODENUM WAS NOTED. HE WAS STARTED ON CARAFATE TID. STAFF REPORTS THAT HE CONTINUES TO BE DISORIENTED, CONFUSED, AND RESTLESS. HE CONTINUES TO HAVE DARK, TARRY STOOLS. ON EXAMINATION, HEART IS REGULAR IN RATE AND RHYTHM. BILATERAL LUNGS ARE NOTED WITH SCATTERED WHEEZING THROUGHOUT. ABDOMEN IS ROUND, SOFT, AND NOTED WITH DIFFUSED TENDERNESS TO PALPATION. INCREASED BOWEL SOUNDS NOTED. HIS VITALS THIS MORNING ARE: 97.3-70-23-100%NC-144/63. LABS WERE OBTAINED. ABNORMAL LAB VALUES INCLUDE THE FOLLOWING: WBC 10.6, RBC 2.56, HGB 7.6, HCT 22.6, CHLORIDE 109, BUN 30, CREATININE 1.72, GLUCOSE 130, CALCIUM 8.0, CRP 33.10, TOTAL PROTEIN 6.1, ALBUMIN 1.8. BLOOD CULTURES ARE PENDING. A CHEST XRAY WAS RECEIVED TODAY AND REVEALED: Interval decrease in patchy pulmonary opacities/infiltrates. Decrease in left pleural effusion. Small right pleural effusion persists. HE IS CURRENTLY REC EIVING NORMAL SALINE AT 50 ML/HR, ZOSYN 3.375G IV TID, AZITHROMYCIN 500MG IV DAILY, GI COCKTAIL 10 ML PO QID, PEPCID 20MG IV DAILY, A PROTONIX DRIP, ZOFRAN 4MG IV Q6H PRN, DUONEBS QID, AND HIS HOME MEDICATIONS WERE RESUMED. WE WILL CONTINUE TO MONITOR H&H Q6H. WE WILL ALSO START ALBUMIN 25% IV DAILY. OTHERWISE, WE PLAN TO FOLLOW UP WITH AM LABS, CHEST XRAY, AND CONTINUE TO MONITOR. - Past Medical Family Social History Past Med/Fam/Surg Hx: No changes since H&P Allergies: Allergies ciprofloxacin Allergy (Verified 01/21/20 22:31) doxycycline Allergy (Verified 01/21/20 22:31) levofloxacin [From Levaquin] Allergy (Verified 01/21/20 22:31) meloxicam [From Mobic] Allergy (Verified 01/21/20 22:31) - Review of Systems ROS: No change since H&P - Vital Signs and I&O's Vital Signs: Temperature 97.7 F Pulse Rate [Left] 89 Pulse Rate 79 Respiratory Rate 33 Blood Pressure [Right Arm] 100/49 Blood Pressure 135/65 O2 Sat by Pulse Oximetry 97 Intake and Output: Intake & Output 01/23/20 01/24/20 01/25/20 01/26/20 11:59 11:59 11:59 11:59 Intake Total 2788 / 2788 2890 / 2890 1821 / 1821 2148 / 2148 Output Total 200 / 200 325 / 525 300 / 300 500 / 500 Balance 2588 / 2588 2565 / 2365 1521 / 1521 1648 / 1648 - Physical Exam Oriented: Person Eyes: Normal Ear: Normal Nose: Normal Throat: Normal Respiratory: Generalized, Wheezes Cardiovascular: Normal : Normal Auscultation: Bowel Sounds: Normal Tenderness: Diffuse, Mild Skin: Normal Musculoskeletal: Back:Lumbar, Pelvis, Tender Psychiatric: Normal Mood Description: Calm Affect: Normal Speech Pattern: Clear, Appropriate - Laboratory and Diagnostics Result Diagrams: 01/26/20 08:59 01/26/20 03:00 Labs: 01/21/20 18:28 Blood Blood Culture - Preliminary 01/21/20 18:25 Blood Blood Culture - Preliminary Laboratory WBC 10.6 X10^3/uL (3.6-10.0) H 01/26/20 03:00 RBC 2.56 X10^6/uL (4.7-6.0) L 01/26/20 03:00 Hgb 8.0 g/dL (13.5-18.0) L 01/26/20 08:59 Hct 24.4 % (42.0-54.0) L 01/26/20 08:59 MCV 88.2 fL (80.0-100.0) 01/26/20 03:00 MCH 29.8 pg (27.0-34.0) 01/26/20 03:00 MCHC 33.8 g/dL (33.0-35.0) 01/26/20 03:00 RDW 15.2 % (11.6-16.5) 01/26/20 03:00 Plt Count 338 X10^3/uL (150.0-450.0) 01/26/20 03:00 Plt Count Comment Increased (ADEQUATE) 01/26/20 03:00 MPV 7.0 fL (7.4-11.0) L 01/26/20 03:00 Neut % (Auto) 70.3 % (42.0-75.0) 01/26/20 03:00 Lymph % (Auto) 14.7 % (21.0-51.0) L 01/26/20 03:00 [place] % (Auto) 8.2 % (0.0-13.0) 01/26/20 03:00 Eos % (Auto) 6.1 % (0.9-2.9) H 01/26/20 03:00 Baso % (Auto) 0.7 % (0.2-1.0) 01/26/20 03:00 Neut # (Auto) 7.5 x10^3/uL (2.2-4.8) H 01/26/20 03:00 Lymph # (Auto) 1.6 X10^3/uL (1.3-2.9) 01/26/20 03:00 [place] # (Auto) 0.9 x10^3/uL (0.3-0.8) H 01/26/20 03:00 Eos # (Auto) 0.6 x10^3/uL (0.0-0.2) H 01/26/20 03:00 Baso # (Auto) 0.1 X10^3/uL (0.0-0.1) 01/26/20 03:00 Absolute Nucleated RBC 0.0 /100WBC 01/26/20 03:00 Total Counted 100 01/22/20 05:10 Neutrophils % (Manual) 98 % (39-76) H 01/22/20 05:10 Band Neutrophils % 4 % (0-10) 01/21/20 18:25 Lymphocytes % (Manual) 2 % (13-43) L 01/22/20 05:10 Monocytes % (Manual) 4 % (4-9) 01/21/20 18:25 Eosinophils % (Manual) 1 % (0-6) 01/21/20 18:25 Plt Morphology Comment Normal (NORMAL) 01/26/20 03:00 RBC Morphology Normal (NORMAL) 01/26/20 03:00 Hypochromasia Slight A 01/21/20 18:25 Poikilocytosis Slight A 01/21/20 18:25 Sample Site Rr 01/21/20 23:26 ABG pH 7.530 (7.35-7.45) H 01/21/20 23:26 ABG pCO2 33.0 mmHg (35.0-45.0) L 01/21/20: ABG pO2 108.0 mmHg (80.0-100.0) H 01/21/20 23: ABG HCO3 27.6 mmol/L (22-26) H 01/21/20 23: ABG O2 Saturation 99.0 % (90-100) 01/21/20: ABG Base Excess 5.0 mmol/L (-2.0-2.0) H 01/21/20 23: Dani Test Pos 01/21/20: A-a Gradient 50.0 mmHg 01/21/20 23: FiO2 28.0 01/21/20 23:26 Blood Gas Comments Sarah well sw 01/21/20 23:26 Sodium 143 mmol/L (136-145) 01/26/20 03:00 Corrected Sodium 144 mmol/L (136-145) 01/26/20 03:00 Potassium 3.9 mmol/L (3.5-5.1) 01/26/20 03:00 Chloride 109 mmol/L (98-107) H 01/26/20 03:00 Carbon Dioxide 25.7 mmol/L (21-32) 01/26/20 03:00 BUN 30 mg/dL (7-18) H 01/26/20 03:00 Creatinine 1.72 mg/dL (0.70-1.30) H 01/26/20 03:00 Est GFR (MDRD) Af Amer 48 (>60) L 01/26/20 03:00 Est GFR (MDRD) Non-Af 40 (>60) L 01/26/20 03:00 Glucose 130 mg/dL (65-99) H 01/26/20 03:00 Lactic Acid 1.4 mmol/L (0.4-2.0) 01/21/20 18:25 Calcium 8.0 mg/dL (8.5-10.1) L 01/26/20 03:00 Corrected Calcium 9.8 mg/dL (8.5-10.1) 01/26/20 03:00 Ferritin 502 ng/mL (26-388) H 01/21/20 18:25 Total Bilirubin 0.40 mg/dL (0.2-1.0) 01/26/20 03:00 AST 30 Units/L (15-37) 01/26/20 03:00 ALT 17 Units/L (12-78) 01/26/20 03:00 Alkaline Phosphatase 74 Units/L (46-116) 01/26/20 03:00 Creatine Kinase 24 Units/L (39-308) L 01/22/20 05:10 CK-MB (CK-2) 1.0 ng/mL (0-4.0) 01/22/20 05:10 CK/CKMB % Calc 4.2 % (<4) 01/22/20 05:10 Troponin I < 0.02 ng/mL (0-1.5) 01/22/20 05:10 C-Reactive Protein 33.10 mg/L (0-3.0) H 01/26/20 03:00 Total Protein 6.1 g/dL (6.4-8.2) L 01/26/20 03:00 Albumin 1.8 g/dL (3.4-5.0) L 01/26/20 03:00 Globulin 4.3 g/dL (2.5-4.5) 01/26/20 03:00 Albumin/Globulin Ratio 0.4 Ratio (1.1-2.1) L 01/26/20 03:00 Amylase 39 Units/L (25-115) 01/22/20 05:10 Lipase 77 Units/L (73-393) 01/22/20 05:10 Specimen Type Clean catch urine 01/22/20 00:50 Urine Color Yellow (YELLOW) 01/22/20 00:50 Urine Appearance Clear (CLEAR) 01/22/20 00:50 Urine pH 8.0 (5.0 - 8.0) 01/22/20 00:50 Ur Specific [place] 1.010 (1.000-1.030) 01/22/20 00:50 Urine Protein 2+ (NEGATIVE) 01/22/20 00:50 Urine Glucose (UA) Negative (NEGATIVE) 01/22/20 00:50 Urine Ketones Negative (NEGATIVE) 01/22/20 00:50 Urine Occult Blood 2+ (NEGATIVE) 01/22/20 00:50 Urine Nitrite Negative (NEGATIVE) 01/22/20 00:50 Urine Bilirubin Negative (NEGATIVE) 01/22/20 00:50 Urine Urobilinogen Normal (NORMAL) 01/22/20 00:50 Ur Leukocyte Esterase 1+ (NEGATIVE) 01/22/20 00:50 Urine RBC 3-5 /HPF (0-3) A 01/22/20 00:50 Urine WBC 0-2 /HPF (0-5) 01/22/20 00:50 Ur Squamous Epith Cells Few /HPF (NEGATIVE) 01/22/20 00:50 Urine Bacteria Trace /HPF (NEGATIVE) 01/22/20 00:50 Ur Culture Indicated? No/not indicated 01/22/20 00:50 Gastric Fluid pH 4 01/22/20 02:19 Gastric Occult Blood Positive (NEGATIVE) A 01/22/20 02:19 Stool Description Ifob 01/22/20 05:20 Stl Occult Blood (IFOB) Positive (NEGATIVE) A 01/22/20 05:20 Stl C. diff Tox B Gene Negative (NEGATIVE) 01/25/20 18:00 Stl C. diff 027-NAP1-BI Negative (NEGATIVE) 01/25/20 18:00 SARS-CoV-2 (PCR) Negative (NEGATIVE) 01/21/20 23:28 Tissue Pathology To follow 01/24/20 12:30 Blood Type O POSITIVE 01/22/20 10:55 Antibody Screen Negative 01/22/20 10:55 Crossmatch See Detail 01/22/20 10:55 - Plan (1) Pneumonia Status: Acute Qualifiers: Pneumonia type: due to unspecified organism Laterality: bilateral Lung location: unspecified part of lung Qualified Code(s): J18.9 - Pneumonia, unspecified organism Plan: NORMAL SALINE AT 50 ML/HR, ZOSYN 3.375G IV TID, AZITHROMYCIN 500MG IV YAZAN Y, PEPCID 20MG IV DAILY, A PROTONIX DRIP, ZOFRAN 4MG IV Q6H PRN, DUONEBS QID, AND HIS HOME MEDICATIONS WERE RESUMED (2) Hypoxia Status: Acute (3) GI bleed Status: Acute Qualifiers: GI bleed type/associated pathology: gastritis Gastritis type: acute gastritis Qualified Code(s): K29.01 - Acute gastritis with bleeding (4) Anemia Status: Acute Qualifiers: Anemia type: unspecified type Qualified Code(s): D64.9 - Anemia, unspecifie d Plan: MONITOR H&H Q6H, CONTINUE TO MONITOR (5) Gastritis Status: Acute Qualifiers: Gastritis type: unspecified gastritis Chronicity: acute Gastritis bleed ing: with bleeding Qualified Code(s): K29.01 - Acute gastritis with bleeding Plan: CONSULT GENERAL SUGERY, CONTINUE TO MONITOR
--- NOTE | 2020-01-26 10:22 | DR.PROGNOT ---
Hospital Progress Notes - Progress Note for Day of: Progress Note Date: 01/26/20 - Chief Complaint Chief Complaint: less abdominal pain today . feeling full after small meals .no vomiting . H&H stable .. no active bleeding . - Past Medical Family Social History Past Med/Fam/Surg Hx: No changes since H&P Allergies: Allergies ciprofloxacin Allergy (Verified 01/21/20 22:31) doxycycline Allergy (Verified 01/21/20 22:31) levofloxacin [From Levaquin] Allergy (Verified 01/21/20 22:31) meloxicam [From Mobic] Allergy (Verified 01/21/20 22:31) - Review Of Systems ROS: No change since H&P - Vital Signs Vital Signs: Temperature 97.7 F Pulse Rate [Left] 89 Pulse Rate 79 Respiratory Rate 33 Blood Pressure [Right Arm] 100/49 Blood Pressure 135/65 O2 Sat by Pulse Oximetry 97 - Physical Exam Oriented: Person Eyes: Normal Ear: Normal Nose: Normal Throat: Normal Respiratory: Generalized, Wheezes Cardiovascular: Normal : Normal GI:Auscultation: Normal GI:Palpation: Normal GI: Tenderness: Diffuse (soft abdomen with mild epigastric tenderness ), Mild Skin: Normal Musculoskeletal: Back:Lumbar, Pelvis, Tender Psychiatric: Normal Mood Description: Calm Affect: Normal Speech Pattern: Clear, Appropriate - Laboratory and Diagnostics Result Diagrams: 01/26/20 08:59 01/26/20 03:00 Labs: 01/21/20 18:28 Blood Blood Culture - Preliminary 01/21/20 18:25 Blood Blood Culture - Preliminary Laboratory WBC 10.6 X10^3/uL (3.6-10.0) H 01/26/20 03:00 RBC 2.56 X10^6/uL (4.7-6.0) L 01/26/20 03:00 Hgb 8.0 g/dL (13.5-18.0) L 01/26/20 08:59 Hct 24.4 % (42.0-54.0) L 01/26/20 08:59 MCV 88.2 fL (80.0-100.0) 01/26/20 03:00 MCH 29.8 pg (27.0-34.0) 01/26/20 03:00 MCHC 33.8 g/dL (33.0-35.0) 01/26/20 03:00 RDW 15.2 % (11.6-16.5) 01/26/20 03:00 Plt Count 338 X10^3/uL (150.0-450.0) 01/26/20 03:00 Plt Count Comment Increased (ADEQUATE) 01/26/20 03:00 MPV 7.0 fL (7.4-11.0) L 01/26/20 03:00 Neut % (Auto) 70.3 % (42.0-75.0) 01/26/20 03:00 Lymph % (Auto) 14.7 % (21.0-51.0) L 01/26/20 03:00 [place] % (Auto) 8.2 % (0.0-13.0) 01/26/20 03:00 Eos % (Auto) 6.1 % (0.9-2.9) H 01/26/20 03:00 Baso % (Auto) 0.7 % (0.2-1.0) 01/26/20 03:00 Neut # (Auto) 7.5 x10^3/uL (2.2-4.8) H 01/26/20 03:00 Lymph # (Auto) 1.6 X10^3/uL (1.3-2.9) 01/26/20 03:00 [place] # (Auto) 0.9 x10^3/uL (0.3-0.8) H 01/26/20 03:00 Eos # (Auto) 0.6 x10^3/uL (0.0-0.2) H 01/26/20 03:00 Baso # (Auto) 0.1 X10^3/uL (0.0-0.1) 01/26/20 03:00 Absolute Nucleated RBC 0.0 /100WBC 01/26/20 03:00 Total Counted 100 01/22/20 05:10 Neutrophils % (Manual) 98 % (39-76) H 01/22/20 05:10 Band Neutrophils % 4 % (0-10) 01/21/20 18:25 Lymphocytes % (Manual) 2 % (13-43) L 01/22/20 05:10 Monocytes % (Manual) 4 % (4-9) 01/21/20 18:25 Eosinophils % (Manual) 1 % (0-6) 01/21/20 18:25 Plt Morphology Comment Normal (NORMAL) 01/26/20 03:00 RBC Morphology Normal (NORMAL) 01/26/20 03:00 Hypochromasia Slight A 01/21/20 18:25 Poikilocytosis Slight A 01/21/20 18:25 Sample Site Rr 01/21/20 23:26 ABG pH 7.530 (7.35-7.45) H 01/21/20 23:26 ABG pCO2 33.0 mmHg (35.0-45.0) L 01/21/20 23:26 ABG pO2 108.0 mmHg (80.0-100.0) H 01/21/20 23:26 ABG HCO3 27.6 mmol/L (22-26) H 01/21/20 23: ABG O2 Saturation 99.0 % (90-100) 01/21/20 23: ABG Base Excess 5.0 mmol/L (-2.0-2.0) H 01/21/20 23: Dani Test Pos 01/21/20 23:26 A-a Gradient 50.0 mmHg 01/21/20 23:26 FiO2 28.0 01/21/20 23:26 Blood Gas Comments Sarah well sw 01/21/20 23:26 Sodium 143 mmol/L (136-145) 01/26/20 03:00 Corrected Sodium 144 mmol/L (136-145) 01/26/20 03:00 Potassium 3.9 mmol/L (3.5-5.1) 01/26/20 03:00 Chloride 109 mmol/L (98-107) H 01/26/20 03:00 Carbon Dioxide 25.7 mmol/L (21-32) 01/26/20 03:00 BUN 30 mg/dL (7-18) H 01/26/20 03:00 Creatinine 1.72 mg/dL (0.70-1.30) H 01/26/20 03:00 Est GFR (MDRD) Af Amer 48 (>60) L 01/26/20 03:00 Est GFR (MDRD) Non-Af 40 (>60) L 01/26/20 03:00 Glucose 130 mg/dL (65-99) H 01/26/20 03:00 Lactic Acid 1.4 mmol/L (0.4-2.0) 01/21/20 18:25 Calcium 8.0 mg/dL (8.5-10.1) L 01/26/20 03:00 Corrected Calcium 9.8 mg/dL (8.5-10.1) 01/26/20 03:00 Ferritin 502 ng/mL (26-388) H 01/21/20 18:25 Total Bilirubin 0.40 mg/dL (0.2-1.0) 01/26/20 03:00 AST 30 Units/L (15-37) 01/26/20 03:00 ALT 17 Units/L (12-78) 01/26/20 03:00 Alkaline Phosphatase 74 Units/L (46-116) 01/26/20 03:00 Creatine Kinase 24 Units/L (39-308) L 01/22/20 05:10 CK-MB (CK-2) 1.0 ng/mL (0-4.0) 01/22/20 05:10 CK/CKMB % Calc 4.2 % (<4) 01/22/20 05:10 Troponin I < 0.02 ng/mL (0-1.5) 01/22/20 05:10 C-Reactive Protein 33.10 mg/L (0-3.0) H 01/26/20 03:00 Total Protein 6.1 g/dL (6.4-8.2) L 01/26/20 03:00 Albumin 1.8 g/dL (3.4-5.0) L 01/26/20 03:00 Globulin 4.3 g/dL (2.5-4.5) 01/26/20 03:00 Albumin/Globulin Ratio 0.4 Ratio (1.1-2.1) L 01/26/20 03:00 Amylase 39 Units/L (25-115) 01/22/20 05:10 Lipase 77 Units/L (73-393) 01/22/20 05:10 Specimen Type Clean catch urine 01/22/20 00:50 Urine Color Yellow (YELLOW) 01/22/20 00:50 Urine Appearance Clear (CLEAR) 01/22/20 00:50 Urine pH 8.0 (5.0 - 8.0) 01/22/20 00:50 Ur Specific [place] 1.010 (1.000-1.030) 01/22/20 00:50 Urine Protein 2+ (NEGATIVE) 01/22/20 00:50 Urine Glucose (UA) Negative (NEGATIVE) 01/22/20 00:50 Urine Ketones Negative (NEGATIVE) 01/22/20 00:50 Urine Occult Blood 2+ (NEGATIVE) 01/22/20 00:50 Urine Nitrite Negative (NEGATIVE) 01/22/20 00:50 Urine Bilirubin Negative (NEGATIVE) 01/22/20 00:50 Urine Urobilinogen Normal (NORMAL) 01/22/20 00:50 Ur Leukocyte Esterase 1+ (NEGATIVE) 01/22/20 00:50 Urine RBC 3-5 /HPF (0-3) A 01/22/20 00:50 Urine WBC 0-2 /HPF (0-5) 01/22/20 00:50 Ur Squamous Epith Cells Few /HPF (NEGATIVE) 01/22/20 00:50 Urine Bacteria Trace /HPF (NEGATIVE) 01/22/20 00:50 Ur Culture Indicated? No/not indicated 01/22/20 00:50 Gastric Fluid pH 4 01/22/20 02:19 Gastric Occult Blood Positive (NEGATIVE) A 01/22/20 02:19 Stool Description Ifob 01/22/20 05:20 Stl Occult Blood (IFOB) Positive (NEGATIVE) A 01/22/20 05:20 Stl C. diff Tox B Gene Negative (NEGATIVE) 01/25/20 18:00 Stl C. diff 027-NAP1-BI Negative (NEGATIVE) 01/25/20 18:00 SARS-CoV-2 (PCR) Negative (NEGATIVE) 01/21/20 23:28 Tissue Pathology To follow 01/24/20 12:30 Blood Type O POSITIVE 01/22/20 10:55 Antibody Screen Negative 01/22/20 10:55 Crossmatch See Detail 01/22/20 10:55 - Assessment and Plan 1: bleeding large prepyloric ulcer . anemia 2nd to 1 . same plan with Protonix , Carafate and transfusion as needed . - Problem Patient Problems: Patient Problems GI bleed (Acute) K92.2 Gastritis (Acute) K29.70 Hypoxia (Acute) R09.02 Anemia (Acute) D64.9
[2020-01-26] MEDS: ALBUMIN HUMAN 25%- 100 ML 100 ML IV SCH (10:30)
[2020-01-26 17:32] LABS: HEMATOCRIT 23.7 % (42.0-54.0); HEMOGLOBIN 7.8 g/dL (13.5-18.0)
[2020-01-26] MEDS: MORPHINE SULFATE INJ 2 MG INJ IVP PRN (18:42)
[2020-01-26] MEDS ORDERED: GEODON INJ IM ONE (20:30)
[2020-01-26] MEDS: TUSSIONEX PENNKINETIC SUSP PO PRN (20:40)
[2020-01-26] MEDS: NEURONTIN CAP 300 MG PO SCH (21:00)
[2020-01-26] MEDS: RESTORIL CAP 15 MG PO PRN (21:00)
[2020-01-26] MEDS: ZITHROMAX INJ 500 MG VIAL 500 MG in D5W 250 ML IV 250 ML IV SCH (21:00)
[2020-01-26] MEDS: SINGULAIR TAB 10 MG PO SCH (21:37)
[2020-01-26] MEDS: ZANAFLEX PO SCH (21:38)
[2020-01-26] MEDS: GEODON INJ IM PRN (23:30)
[2020-01-27] MEDS: COLACE CAP 100 MG PO SCH ×3 (00:34→21:06)
[2020-01-27] MEDS: PROTONIX INJ 40 MG VIAL 80 MG in NS 100 ML IV 80 ML IV SCH ×4 (00:40→21:39)
[2020-01-27] MEDS: NS 1000 ML 1,000 ML IV SCH ×2 (00:40→23:51)
[2020-01-27 01:32] LABS: HEMATOCRIT 19.3 % (42.0-54.0)
[2020-01-27 01:33] LABS: HEMOGLOBIN 6.4 g/dL (13.5-18.0)
[2020-01-27] MEDS ORDERED: NS 250 ML IV 250 ML IV ONE (01:38)
--- NOTE | 2020-01-27 05:16 | RAD ---
HISTORYSOBSTUDYCHEST, 1 [id number] trachea is midline. The cardiac silhouette is unremarkable. No significant interval change in patchy bilateral pulmonary opacities/infiltrates. Small right pleural effusion again seen.. The bony thorax is unremarkable.IMPRESSIONNo significant interval change.Electronically signed by: Brooklyn Gonzalez (Jan 27, 2020 05:14:40)
[2020-01-27] MEDS: VOLTAREN 1 % GEL MULTI DOSE TUBE TOP SCH ×3 (06:24→22:58)
[2020-01-27] MEDS: CARAFATE PO SCH ×3 (06:24→22:58)
[2020-01-27] MEDS: XANAX PO SCH ×3 (06:24→22:53)
[2020-01-27] MEDS: ZOSYN VIAL 3.375 GRAMS 3.375 G in NS 100 ML IV + SPIKE MINIBAG* 100 ML IV SCH ×3 (07:13→23:10)
[2020-01-27] MEDS ORDERED: LEXAPRO ONE (09:01)
[2020-01-27] MEDS ORDERED: NS 100 ML IV 100 ML IV ONE (09:02)
[2020-01-27] MEDS ORDERED: PROTONIX INJ 40 MG VIAL ONE ×2 (09:02→09:08)
[2020-01-27] MEDS: VSL#3 PO SCH (09:11)
[2020-01-27] MEDS: FERROUS GLUCONATE PO SCH (09:11)
[2020-01-27] MEDS: BUSPAR PO SCH (09:12)
[2020-01-27] MEDS: ARIMIDEX PO SCH (09:12)
[2020-01-27] MEDS: REQUIP PO SCH ×2 (09:12→22:53)
[2020-01-27] MEDS: DEMADEX PO SCH (09:13)
[2020-01-27] MEDS: LEXAPRO PO SCH (09:14)
[2020-01-27] MEDS: TAB-A-VITE PO SCH ×2 (09:14→22:57)
[2020-01-27] MEDS: ARTIFICIAL TEARS DROPS OP SCH ×2 (09:15→21:40)
[2020-01-27] MEDS: LOPRESSOR TAB 25 MG PO SCH ×2 (09:15→22:53)
[2020-01-27] MEDS: EXELON PO SCH ×2 (09:15→21:40)
[2020-01-27] MEDS: BRINZOLAMIDE RIGHTEYE SCH ×2 (09:15→21:40)
[2020-01-27] MEDS: LEVSIN/MAALOX/LIDOC VISC PO SCH ×6 (09:16→22:52)
[2020-01-27] MEDS: MIRALAX POWDER (1 DOSE 17 G) PO SCH (09:16)
[2020-01-27] MEDS: ALBUMIN HUMAN 25%- 100 ML 100 ML IV SCH (09:17)
[2020-01-27] MEDS: DUONEB 0.5 MG/3 MG (3 mL) NEB SCH ×4 (09:35→20:45)
[2020-01-27] MEDS: PULMICORT NEB TX 0.5 MG NEB SCH ×2 (09:35→20:45)
[2020-01-27 09:38] LABS: BASOPHILS # (AUTO) 0.1 X10^3/uL (0.0-0.1); BASOPHILS % (AUTO) 0.7 % (0.2-1.0); EOSINOPHILS # (AUTO) 1.3 x10^3/uL (0.0-0.2); EOSINOPHILS % (AUTO) 10.6 % (0.9-2.9); HEMATOCRIT 29.3 % (42.0-54.0); LYMPHOCYTES # (AUTO) 1.6 X10^3/uL (1.3-2.9); LYMPHOCYTES % (AUTO) 12.9 % (21.0-51.0); MEAN CORPUSCULAR HEMOGLOBIN 29.3 pg (27.0-34.0); MEAN CORPUSCULAR HGB CONC 32.7 g/dL (33.0-35.0); MEAN CORPUSCULAR VOLUME 89.6 fL (80.0-100.0); MEAN PLATELET VOLUME 6.6 fL (7.4-11.0); NEUTROPHILS # (AUTO) 8.5 x10^3/uL (2.2-4.8); NEUTROPHILS % (AUTO) 67.8 % (42.0-75.0); PLATELET COUNT 317 X10^3/uL (150.0-450.0); RED BLOOD COUNT 3.27 X10^6/uL (4.7-6.0); RED CELL DISTRIBUTION WIDTH 15.2 % (11.6-16.5); WHITE BLOOD COUNT 12.6 X10^3/uL (3.6-10.0)
[2020-01-27 09:40] LABS: HEMOGLOBIN 9.6 g/dL (13.5-18.0)
[2020-01-27] MEDS: PEPCID 20 MG IV PREMIX* 20 MG/50 ML BAG IV SCH (09:57)
[2020-01-27 09:59] LABS: ALBUMIN 2.5 g/dL (3.4-5.0); CALCIUM 8.8 mg/dL (8.5-10.1); CREATININE 1.68 mg/dL (0.70-1.30); TOTAL PROTEIN 6.4 g/dL (6.4-8.2)
--- NOTE | 2020-01-27 10:34 | PCM.PROG ---
Progress Note - Progress Note for Day of Date of Exam: 01/27/20 - Subjective Subjective: IS BEING TREATED FOR PNEUMONIA WITH HYPOXIA, GI BLEED, GASTRITIS, AND ANEMIA. HIS HEMOGLOBIN FELL TO 6.4 THIS MORNING. AN ADDITIONAL TWO UNITS OF PRBC WERE TRANSFUSED. HE HAS HAD A TOTAL OF 6 UNITS OF PRBC SINCE ADMISSION. TOOK PATIENT TO THE OR FOR AN EGD FRIDAY. IT REVEALED A LARGE PREPYLORIC ULCER WITH ONLY MILD BLEEDING AT THE TIME. NO ACTIVE BLEEDING IN THE STOMACH OR DUODENUM WAS NOTED. WE HAVE SPOKE WITH HIM AGAIN THIS MORNING AND HE PLANS TO TAKE THE PATIENT BACK TO THE OR FOR POSSIBLE CAUTERIZATION OF THE BLEEDING ULCER. STAFF REPORTS THAT HE CONTINUES TO BE DISORIENTED, CONFUSED, AND RESTLESS. HE WAS STARTED ON [place] PRN LAST NIGHT PER THE [facility] SCREED OPERATOR DOCTOR. HE CONTINUES TO HAVE DARK, TARRY STOOLS. ON EXAMINATION, HEART IS REGULAR IN RATE AND RHYTHM. BILATERAL LUNGS ARE NOTED WITH SCATTERED WHEEZING THROUGHOUT. ABDOMEN IS ROUND, SOFT, AND NOTED WITH DIFFUSED TENDERNESS TO PALPATION. INCREASED BOWEL SOUNDS NOTED. HIS VITALS THIS MORNING ARE: 98.0-79-15 -100%-131/60. LABS WERE OBTAINED. ABNORMAL LAB VALUES INCLUDE THE FOLLOWING: WBC 12.6, RBC 3.27, HGB 9.6, HCT 29.3, CHLORIDE 109, BUN 27, CREATININE 1.68, GLUCOSE 111, CRP 23.50, ALBUMIN 2.5. BLOOD CULTURES ARE PENDING. A CHEST XRAY WAS RECEIVED TODAY AND REVEALED: The trachea is midline. The cardiac silhouette is unremarkable. No significant interval change in patchy bilateral pulmonary opacities/infiltrates. Small right pleural effusion again seen. The bony thorax is unremarkable. HE IS CURRENTLY RECEIVING NORMAL SALINE AT 50 ML/HR, ZOSYN 3.375G IV TID, AZITHROMYCIN 500MG IV DAILY, ALBUMIN 25% IV DAILY, GI COCKTAIL 10 ML PO QID, PEPCID 20MG IV DAILY, A PROTONIX DRIP, ZOFRAN 4MG IV Q6H PRN, DUONEBS QID, AND HIS HOME MEDICATIONS WERE RESUMED. TODAY, WE WILL OBTAIN AN ECHO, EKG, AND COAGS FOR SURGICAL CLEARANCE. WE WILL CONTINUE TO MONITOR H&H. OTHERWISE, WE PLAN TO FOLLOW UP WITH AM LABS, CHEST XRAY, AND CONTINUE TO MONITOR. - Past Medical Family Social History Past Med/Fam/Surg Hx: No changes since H&P Allergies: Allergies ciprofloxacin Allergy (Verified 01/21/20 22:31) doxycycline Allergy (Verified 01/21/20 22:31) levofloxacin [From Levaquin] Allergy (Verified 01/21/20 22:31) meloxicam [From Mobic] Allergy (Verified 01/21/20 22:31) - Review of Systems ROS: No change since H&P - Vital Signs and I&O's Vital Signs: Temperature 98.0 F Pulse Rate [Left] 89 Pulse Rate 73 Respiratory Rate 16 Blood Pressure [Right Arm] 100/49 Blood Pressure 180/74 O2 Sat by Pulse Oximetry 100 Intake and Output: Intake & Output 01/24/20 01/25/20 01/26/20 01/27/20 11:59 11:59 11:59 11:59 Intake Total 2890 / 2890 1821 / 1821 2148 / 2148 1961 / 1961 Output Total 325 / 525 300 / 300 500 / 500 350 / 350 Balance 2565 / 2365 1521 / 1521 1648 / 1648 1612 / 1612 - Physical Exam Oriented: Person Eyes: Normal Ear: Normal Nose: Normal Throat: Normal Respiratory: Generalized, Wheezes Cardiovascular: Normal : Normal Auscultation: Bowel Sounds: Normal Palpation: Normal Tenderness: Diffuse (soft abdomen with mild epigastric tenderness ), Mild Skin: Normal Musculoskeletal: Back:Lumbar, Pelvis, Tender Psychiatric: Normal Mood Description: Calm Affect: Normal Speech Pattern: Clear - Laboratory and Diagnostics Result Diagrams: 01/27/20 09:25 01/27/20 09:25 Labs: 01/21/20 18:28 Blood Blood Culture - Preliminary 01/21/20 18:25 Blood Blood Culture - Preliminary Laboratory WBC 12.6 X10^3/uL (3.6-10.0) H 01/27/20 09:25 RBC 3.27 X10^6/uL (4.7-6.0) L 01/27/20 09:25 Hgb 9.6 g/dL (13.5-18.0) L D 01/27/20 09:25 Hct 29.3 % (42.0-54.0) L 01/27/20 09:25 MCV 89.6 fL (80.0-100.0) 01/27/20 09:25 MCH 29.3 pg (27.0-34.0) 01/27/20 09:25 MCHC 32.7 g/dL (33.0-35.0) L 01/27/20 09:25 RDW 15.2 % (11.6-16.5) 01/27/20 09:25 Plt Count 317 X10^3/uL (150.0-450.0) 01/27/20 09:25 Plt Count Comment Increased (ADEQUATE) 01/26/20 03:00 MPV 6.6 fL (7.4-11.0) L 01/27/20 09:25 Neut % (Auto) 67.8 % (42.0-75.0) 01/27/20 09:25 Lymph % (Auto) 12.9 % (21.0-51.0) L 01/27/20 09:25 [place] % (Auto) 8.0 % (0.0-13.0) 01/27/20 09:25 Eos % (Auto) 10.6 % (0.9-2.9) H 01/27/20 09:25 Baso % (Auto) 0.7 % (0.2-1.0) 01/27/20 09:25 Neut # (Auto) 8.5 x10^3/uL (2.2-4.8) H 01/27/20 09:25 Lymph # (Auto) 1.6 X10^3/uL (1.3-2.9) 01/27/20 09:25 [place] # (Auto) 1.0 x10^3/uL (0.3-0.8) H 01/27/20 09:25 Eos # (Auto) 1.3 x10^3/uL (0.0-0.2) H 01/27/20 09:25 Baso # (Auto) 0.1 X10^3/uL (0.0-0.1) 01/27/20 09:25 Absolute Nucleated RBC 0.0 /100WBC 01/27/20 09:25 Total Counted 100 01/22/20 05:10 Neutrophils % (Manual) 98 % (39-76) H 01/22/20 05:10 Band Neutrophils % 4 % (0-10) 01/21/20 18:25 Lymphocytes % (Manual) 2 % (13-43) L 01/22/20 05:10 Monocytes % (Manual) 4 % (4-9) 01/21/20 18:25 Eosinophils % (Manual) 1 % (0-6) 01/21/20 18:25 Plt Morphology Comment Normal (NORMAL) 01/26/20 03:00 RBC Morphology Normal (NORMAL) 01/26/20 03:00 Hypochromasia Slight A 01/21/20 18:25 Poikilocytosis Slight A 01/21/20 18:25 PT 14.6 SECONDS (11.8-14.3) 01/27/20 09:25 INR Target Range - 01/27/20: INR 1.17 (0.8-1.3) 01/27/20 09:25 APTT 30.6 SECONDS (22.9-36.5) 01/27/20 09:25 PTT Comment - 01/27/20 09:25 Sample Site Rr 01/21/20 23:26 ABG pH 7.530 (7.35-7.45) H 01/21/20 23:26 ABG pCO2 33.0 mmHg (35.0-45.0) L 01/21/20 23:26 ABG pO2 108.0 mmHg (80.0-100.0) H 01/21/20 23:26 ABG HCO3 27.6 mmol/L (22-26) H 01/21/20 23:26 ABG O2 Saturation 99.0 % (90-100) 01/21/20 23:26 ABG Base Excess 5.0 mmol/L (-2.0-2.0) H 01/21/20 23:26 Dani Test Pos 01/21/20 23:26 A-a Gradient 50.0 mmHg 01/21/20 23:26 FiO2 28.0 01/21/20 23:26 Blood Gas Comments Sarah well sw 01/21/20 23:26 Sodium 145 mmol/L (136-145) 01/27/20 09:25 Corrected Sodium 145 mmol/L (136-145) 01/27/20 09:25 Potassium 3.9 mmol/L (3.5-5.1) 01/27/20 09:25 Chloride 109 mmol/L (98-107) H 01/27/20 09:25 Carbon Dioxide 30.0 mmol/L (21-32) 01/27/20 09:25 BUN 27 mg/dL (7-18) H 01/27/20 09:25 Creatinine 1.68 mg/dL (0.70-1.30) H 01/27/20 09:25 Est GFR (MDRD) Af Amer 50 (>60) L 01/27/20 09:25 Est GFR (MDRD) Non-Af 41 (>60) L 01/27/20 09:25 Glucose 111 mg/dL (65-99) H 01/27/20 09:25 Lactic Acid 1.4 mmol/L (0.4-2.0) 01/21/20 18:25 Calcium 8.8 mg/dL (8.5-10.1) 01/27/20 09:25 Corrected Calcium 10.0 mg/dL (8.5-10.1) 01/27/20 09:25 Ferritin 502 ng/mL (26-388) H 01/21/20 18:25 Total Bilirubin 0.40 mg/dL (0.2-1.0) 01/27/20 09:25 AST 35 Units/L (15-37) 01/27/20 09:25 ALT 24 Units/L (12-78) 01/27/20 09:25 Alkaline Phosphatase 82 Units/L (46-116) 01/27/20 09:25 Creatine Kinase 24 Units/L (39-308) L 01/22/20 05:10 CK-MB (CK-2) 1.0 ng/mL (0-4.0) 01/22/20 05:10 CK/CKMB % Calc 4.2 % (<4) 01/22/20 05:10 Troponin I < 0.02 ng/mL (0-1.5) 01/22/20 05:10 C-Reactive Protein 23.50 mg/L (0-3.0) H 01/27/20 09:25 Total Protein 6.4 g/dL (6.4-8.2) 01/27/20 09:25 Albumin 2.5 g/dL (3.4-5.0) L 01/27/20 09:25 Globulin 3.9 g/dL (2.5-4.5) 01/27/20 09:25 Albumin/Globulin Ratio 0.6 Ratio (1.1-2.1) L 01/27/20 09:25 Amylase 39 Units/L (25-115) 01/22/20 05:10 Lipase 77 Units/L (73-393) 01/22/20 05:10 Specimen Type Clean catch urine 01/22/20 00:50 Urine Color Yellow (YELLOW) 01/22/20 00:50 Urine Appearance Clear (CLEAR) 01/22/20 00:50 Urine pH 8.0 (5.0 - 8.0) 01/22/20 00:50 Ur Specific [place] 1.010 (1.000-1.030) 01/22/20 00:50 Urine Protein 2+ (NEGATIVE) 01/22/20 00:50 Urine Glucose (UA) Negative (NEGATIVE) 01/22/20 00:50 Urine Ketones Negative (NEGATIVE) 01/22/20 00:50 Urine Occult Blood 2+ (NEGATIVE) 01/22/20 00:50 Urine Nitrite Negative (NEGATIVE) 01/22/20 00:50 Urine Bilirubin Negative (NEGATIVE) 01/22/20 00:50 Urine Urobilinogen Normal (NORMAL) 01/22/20 00:50 Ur Leukocyte Esterase 1+ (NEGATIVE) 01/22/20 00:50 Urine RBC 3-5 /HPF (0-3) A 01/22/20 00:50 Urine WBC 0-2 /HPF (0-5) 01/22/20 00:50 Ur Squamous Epith Cells Few /HPF (NEGATIVE) 01/22/20 00:50 Urine Bacteria Trace /HPF (NEGATIVE) 01/22/20 00:50 Ur Culture Indicated? No/not indicated 01/22/20 00:50 Gastric Fluid pH 4 01/22/20 02:19 Gastric Occult Blood Positive (NEGATIVE) A 01/22/20 02:19 Stool Description Ifob 01/22/20 05:20 Stl Occult Blood (IFOB) Positive (NEGATIVE) A 01/22/20 05:20 Stl C. diff Tox B Gene Negative (NEGATIVE) 01/25/20 18:00 Stl C. diff 027-NAP1-BI Negative (NEGATIVE) 01/25/20 18:00 SARS-CoV-2 (PCR) Negative (NEGATIVE) 01/21/20 23:28 Tissue Pathology To follow 01/24/20 12:30 Miscellaneous Test Covid 19 01/22/20 16:45 Blood Type O POSITIVE 01/27/20 02:10 Antibody Screen Negative 01/27/20 02:10 Crossmatch See Detail 01/27/20 02:10 - Plan (1) Pneumonia Status: Acute Qualifiers: Pneumonia type: due to unspecified organism Laterality: bilateral Lung location: unspecified part of lung Qualified Code(s): J18.9 - Pneumonia, unsp ecified organism Plan: NORMAL SALINE AT 50 ML/HR, ZOSYN 3.375G IV TID, AZITHROMYCIN 500MG IV DAILY, PEPCID 20MG IV DAILY, A PROTONIX DRIP, ZOFRAN 4MG IV Q6H PRN, DUONEBS QI D, AND HIS HOME MEDICATIONS WERE RESUMED (2) Hypoxia Status: Acute (3) GI bleed Status: Acute Qualifiers: GI bleed type/associated pathology: gastritis Gastritis type: acute gastritis Qualified Code(s): K29.01 - Acute gastritis with bleeding (4) Anemia Status: Acute Qualifiers: Anemia type: unspecified type Qualified Code(s): D64.9 - Anemia, unspecified Plan: MONITOR H&H Q6H, CONTINUE TO MONITOR (5) Gastritis Status: Acute Qualifiers: Gastritis type: unspecified gastritis Chronicity: acute Gastritis bleeding: with bleeding Qualified Code(s): K29.01 - Acute gastritis with bleeding Plan: CONSULT GENERAL SUGERY, CONTINUE TO MONITOR
[2020-01-27] MEDS ORDERED: GEODON INJ IM ONE (15:15)
[2020-01-27] MEDS: GEODON INJ IM PRN (15:20)
[2020-01-27 21:56] LABS: HEMATOCRIT 19.6 % (42.0-54.0); HEMOGLOBIN 6.4 g/dL (13.5-18.0)
[2020-01-27] MEDS: NEURONTIN CAP 300 MG PO SCH (22:53)
[2020-01-27] MEDS: SINGULAIR TAB 10 MG PO SCH (22:54)
[2020-01-27] MEDS: ZANAFLEX PO SCH (22:58)
[2020-01-28] MEDS: ZITHROMAX INJ 500 MG VIAL 500 MG in D5W 250 ML IV 250 ML IV SCH ×2 (00:19→21:27)
[2020-01-28] MEDS: NS 1000 ML 1,000 ML IV SCH (00:36)
[2020-01-28] MEDS ORDERED: NS 250 ML IV 250 ML IV ONE ×2 (02:40→02:42)
--- NOTE | 2020-01-28 05:15 | RAD ---
HISTORYSOBSTUDYCHEST, 1 [id number]/2020FINDINGSThe trachea is midline. The cardiac silhouette is mildly enlarged, similar to prior exam. Stable prominence of the left hilum, which may be related to underlying vasculature or lymphadenopathy. Patchy bilateral pulmonary opacities/infiltrates, improved at the right lung base. Persistent small right pleural effusion... The bony thorax is unremarkable.IMPRESSIONImproved opacities/infiltrates at the right lung base.Stable prominence of the left hilum which may be related to underlying vasculature or lymphadenopathy. Consider CT for further assessment when clinically appropriate.Electronically signed by: Brooklyn Gonzalez (Jan 28, 2020 05:13:01)
[2020-01-28] MEDS: CARAFATE PO SCH ×3 (06:25→21:26)
[2020-01-28] MEDS: XANAX PO SCH ×3 (06:25→21:26)
[2020-01-28] MEDS: VOLTAREN 1 % GEL MULTI DOSE TUBE TOP SCH ×3 (06:26→22:31)
[2020-01-28] MEDS: ZOSYN VIAL 3.375 GRAMS 3.375 G in NS 100 ML IV + SPIKE MINIBAG* 100 ML IV SCH ×3 (07:26→22:31)
[2020-01-28] MEDS: PROTONIX INJ 40 MG VIAL 80 MG in NS 100 ML IV 80 ML IV SCH (07:27)
[2020-01-28 09:02] LABS: BASOPHILS # (AUTO) 0.1 X10^3/uL (0.0-0.1); BASOPHILS % (AUTO) 0.6 % (0.2-1.0); EOSINOPHILS # (AUTO) 0.4 x10^3/uL (0.0-0.2); EOSINOPHILS % (AUTO) 2.2 % (0.9-2.9); HEMATOCRIT 26.2 % (42.0-54.0); LYMPHOCYTES # (AUTO) 2.1 X10^3/uL (1.3-2.9); LYMPHOCYTES % (AUTO) 11.1 % (21.0-51.0); MEAN CORPUSCULAR HEMOGLOBIN 29.6 pg (27.0-34.0); MEAN CORPUSCULAR HGB CONC 33.2 g/dL (33.0-35.0); MEAN CORPUSCULAR VOLUME 89.3 fL (80.0-100.0); MEAN PLATELET VOLUME 7.1 fL (7.4-11.0); MONOCYTES # (AUTO) 1.8 x10^3/uL (0.3-0.8); MONOCYTES % (AUTO) 9.4 % (0.0-13.0); NEUTROPHILS # (AUTO) 14.9 x10^3/uL (2.2-4.8); NEUTROPHILS % (AUTO) 76.7 % (42.0-75.0); PLATELET COUNT 253 X10^3/uL (150.0-450.0); RED BLOOD COUNT 2.94 X10^6/uL (4.7-6.0); WHITE BLOOD COUNT 19.4 X10^3/uL (3.6-10.0)
[2020-01-28 09:03] LABS: HEMOGLOBIN 8.7 g/dL (13.5-18.0)
[2020-01-28 09:34] LABS: ABG BASE EXCESS 3.3 mmol/L (-2.0-2.0); ABG HCO3 26.8 mmol/L (22-26)
[2020-01-28 09:38] LABS: ALBUMIN 2.4 g/dL (3.4-5.0); CALCIUM 8.3 mg/dL (8.5-10.1); CARBON DIOXIDE 27.7 mmol/L (21-32); COR CA(FOR HYPOALB) 9.6 mg/dL (8.5-10.1); CREATININE 1.66 mg/dL (0.70-1.30); TOTAL PROTEIN 5.9 g/dL (6.4-8.2)
[2020-01-28] MEDS ORDERED: NS 500 ML IV 500 ML IV ONE (10:10)
[2020-01-28] MEDS ORDERED: FENTANYL INJ 250 mcg ONE (10:10)
[2020-01-28] MEDS ORDERED: LR 1000 ML IV 1,000 ML IV ONE (10:13)
[2020-01-28] MEDS ORDERED: ROBINUL ONE (10:49)
[2020-01-28] MEDS ORDERED: SUPRANE ONE (10:49)
[2020-01-28] MEDS ORDERED: NEO-SYNEPHRINE INJ ONE (10:49)
[2020-01-28] MEDS ORDERED: VERSED ONE (10:49)
[2020-01-28] MEDS ORDERED: NORCURON INJ 10 MG VIAL ONE ×2 (10:49→14:02)
[2020-01-28] MEDS ORDERED: DOPAMINE 400 MG/250 ML IV ONE (10:49)
[2020-01-28] MEDS ORDERED: AMIDATE INJ 40 MG VIAL ONE (10:49)
[2020-01-28] MEDS ORDERED: NEOSTIGMINE INJ ONE ×2 (10:49)
[2020-01-28] MEDS ORDERED: QUELICIN (OR ANECTINE) ONE (10:49)
--- NOTE | 2020-01-28 10:53 | PCM.PROG ---
Progress Note - Progress Note for Day of Date of Exam: 01/28/20 - Subjective Subjective: IS BEING TREATED FOR PNEUMONIA WITH HYPOXIA, GI BLEED, GASTRITIS, AND ANEMIA. HIS HEMOGLOBIN FELL TO 6.4 AGAIN LAST NIGHT. AN ADDITIONAL TWO UNITS OF PRBC WERE TRANSFUSED. HE HAS HAD A TOTAL OF 8 UNITS OF PRBC SINCE ADMISSION. TOOK PATIENT TO THE OR FOR AN EGD FRIDAY. IT R EVEALED A LARGE PREPYLORIC ULCER WITH ONLY MILD BLEEDING AT THE TIME. NO ACTIVE BLEEDING IN THE STOMACH OR DUODENUM WAS NOTED. WE HAVE SPOKE WITH HIM AGAIN THIS MORNING AND HE PLANS TO TAKE THE PATIENT BACK TO THE OR FOR POSSIBLE CAUTERIZATION OF THE BLEEDING ULCER THIS MORNING. STAFF REPORTS THAT HE CONTINUES TO BE DISORIENTED, CONFUSED, AND RESTLESS. HE HAD LARGE, BLOODY BOWEL MOVMENTS THROUGHOUT THE NIGHT. ON EXAMINATION, HEART IS REGULAR IN RATE AND RHYTHM. BILATERAL LUNGS ARE NOTED WITH SCATTERED WHEEZING THROUGHOUT. ABDOMEN IS ROUND, SOFT, AND NOTED WITH DIFFUSED TENDERNESS TO PALPATION. INCREASED BOWEL SOUNDS NOTED. HIS VITALS THIS MORNING ARE: 99.6-94-20-99%-120/58. LABS WERE OBTAINED. ABNORMAL LAB VALUES INCLUDE THE FOLLOWING: WBC INCREASED TO 19.4, RBC 2.94, HGB 8.7, HCT 26.2, CHLORIDE 111, BUN 38, CREATININE 1.66, GLUCOSE 120, CALCIUM 8.3, TOTAL PROTEIN 5.9, ALBUMIN 2.4. A CHEST XRAY WAS RECEIVED TODAY AND REVEALED: Improved opacities/infiltrates at the right lung base. Stable prominence of the left hilum which may be related to underlying vasculature or lymphadenopathy. HE IS CURRENTLY RECEIVING NORMAL SALINE AT 50 ML/HR, ZOSYN 3.375G IV TID, AZITHROMYCIN 500MG IV DAILY, ALBUMIN 25% IV DAILY, GI COCKTAIL 10 ML PO QID, PEPCID 20MG IV DAILY, A PROTONIX DRIP, ZOFRAN 4MG IV Q6H PRN, DUONEBS QID, AND HIS HOME MEDICATIONS WERE RESUMED. WE WILL CONTINUE TO MONITOR H&H. OTH ERWISE, WE PLAN TO FOLLOW UP WITH AM LABS, CHEST XRAY, AND CONTINUE TO MONITOR. - Past Medical Family Social History Past Med/Fam/Surg Hx: No changes since H&P Allergies: Allergies ciprofloxacin Allergy (Verified 01/21/20 22:31) doxycycline Allergy (Verified 01/21/20 22:31) levofloxacin [From Levaquin] Allergy (Verified 01/21/20 22:31) meloxicam [From Mobic] Allergy (Verified 01/21/20 22:31) - Review of Systems ROS: No change since H&P - Vital Signs and I&O's Vital Signs: Temperature 99.6 F Pulse Rate [Left] 89 Pulse Rate 92 Respiratory Rate 20 Blood Pressure [Right Arm] 100/49 Blood Pressure 138/67 O2 Sat by Pulse Oximetry 100 Intake and Output: Intake & Output 01/25/20 01/26/20 01/27/20 01/28/20 11:59 11:59 11:59 11:59 Intake Total 1821 / 1821 2148 / 2148 196 / 2 1348 / 1348 Output Total 300 / 300 500 / 500 350 / 350 Balance 1521 / 1521 1648 / 1648 1612 / 1612 1348 / 1348 - Physical Exam Oriented: Person Eyes: Normal Ear: Normal Nose: Normal Throat: Normal Respiratory: Generalized, Wheezes Cardiovascular: Normal : Normal Auscultation: Bowel Sounds: Normal Tenderness: Diffuse (soft abdomen with mild epigastric tenderness ), Mild Skin: Normal Musculoskeletal: Back:Lumbar, Pelvis, Tender Psychiatric: Normal Mood Description: Calm Affect: Normal Speech Pattern: Clear - Laboratory and Diagnostics Result Diagrams: 01/28/20 08:44 01/28/20 09:09 Labs: 01/21/20 18:25 Blood Blood Culture - Final 01/21/20 18:28 Blood Blood Culture - Final Laboratory WBC 19.4 X10^3/uL (3.6-10.0) H 01/28/20 08:44 RBC 2.94 X10^6/uL (4.7-6.0) L 01/28/20 08:44 Hgb 8.7 g/dL (13.5-18.0) L D 01/28/20 08:44 Hgb Cancelled 01/28/20 08:44 Hct 26.2 % (42.0-54.0) L 01/28/20 08:44 Hct Cancelled 01/28/20 08:44 MCV 89.3 fL (80.0-100.0) 01/28/20 08:44 MCH 29.6 pg (27.0-34.0) 01/28/20 08:44 MCHC 33.2 g/dL (33.0-35.0) 01/28/20 08:44 RDW 15.0 % (11.6-16.5) 01/28/20 08:44 Plt Count 253 X10^3/uL (150.0-450.0) 01/28/20 08:44 Plt Count Comment Increased (ADEQUATE) 01/26/20 03:00 MPV 7.1 fL (7.4-11.0) L 01/28/20 08:44 Neut % (Auto) 76.7 % (42.0-75.0) H 01/28/20 08:44 Lymph % (Auto) 11.1 % (21.0-51.0) L 01/28/20 08:44 [place] % (Auto) 9.4 % (0.0-13.0) 01/28/20 08:44 Eos % (Auto) 2.2 % (0.9-2.9) 01/28/20 08:44 Baso % (Auto) 0.6 % (0.2-1.0) 01/28/20 08:44 Neut # (Auto) 14.9 x10^3/uL (2.2-4.8) H 01/28/20 08:44 Lymph # (Auto) 2.1 X10^3/uL (1.3-2.9) 01/28/20 08:44 [place] # (Auto) 1.8 x10^3/uL (0.3-0.8) H 01/28/20 08:44 Eos # (Auto) 0.4 x10^3/uL (0.0-0.2) H 01/28/20 08:44 Baso # (Auto) 0.1 X10^3/uL (0.0-0.1) 01/28/20 08:44 Absolute Nucleated RBC 0.0 /100WBC 01/28/20 08:44 Total Counted 100 01/22/20 05:10 Neutrophils % (Manual) 98 % (39-76) H 01/22/20 05:10 Band Neutrophils % 4 % (0-10) 01/21/20 18:25 Lymphocytes % (Manual) 2 % (13-43) L 01/22/20 05:10 Monocytes % (Manual) 4 % (4-9) 01/21/20 18:25 Eosinophils % (Manual) 1 % (0-6) 01/21/20 18:25 Plt Morphology Comment Normal (NORMAL) 01/26/20 03:00 RBC Morphology Normal (NORMAL) 01/26/20 03:00 Hypochromasia Slight A 01/21/20 18:25 Poikilocytosis Slight A 01/21/20 18:25 PT 14.6 SECONDS (11.8-14.3) 01/27/20 09:25 INR Target Range - 01/27/20: INR 1.17 (0.8-1.3) 01/27/20 09:25 APTT 30.6 SECONDS (22.9-36.5) 01/27/20: PTT Comment - 01/27/20 09:25 Sample Site Rb 01/28/20 09:29 ABG pH 7.480 (7.35-7.45) H 01/28/20 09:29 ABG pCO2 36.0 mmHg (35.0-45.0) 01/28/20 09:29 ABG pO2 86.0 mmHg (80.0-100.0) 01/28/20 09:29 ABG HCO3 26.8 mmol/L (22-26) H 01/28/20 09:29 ABG O2 Saturation 97.0 % (90-100) 01/28/20 09:29 ABG Base Excess 3.3 mmol/L (-2.0-2.0) H 01/28/20 09:29 Dani Test Na 01/28/20 09:29 A-a Gradient 54.0 mmHg 01/28/20 09:29 FiO2 26.0 01/28/20 09:29 Blood Gas Comments Sarah well 01/28/20 09:29 Sodium 145 mmol/L (136-145) 01/28/20 09:09 Corrected Sodium 145 mmol/L (136-145) 01/28/20 09:09 Potassium 4.2 mmol/L (3.5-5.1) 01/28/20 09:09 Chloride 111 mmol/L (98-107) H 01/28/20 09:09 Carbon Dioxide 27.7 mmol/L (21-32) 01/28/20 09:09 BUN 38 mg/dL (7-18) H 01/28/20 09:09 Creatinine 1.66 mg/dL (0.70-1.30) H 01/28/20 09:09 Est GFR (MDRD) Af Amer 50 (>60) L 01/28/20 09:09 Est GFR (MDRD) Non-Af 42 (>60) L 01/28/20 09:09 Glucose 120 mg/dL (65-99) H 01/28/20 09:09 Lactic Acid 1.4 mmol/L (0.4-2.0) 01/21/20 18:25 Calcium 8.3 mg/dL (8.5-10.1) L 01/28/20 09:09 Corrected Calcium 9.6 mg/dL (8.5-10.1) 01/28/20 09:09 Ferritin 502 ng/mL (26-388) H 01/21/20 18:25 Total Bilirubin 0.50 mg/dL (0.2-1.0) 01/28/20 09:09 AST 35 Units/L (15-37) 01/28/20 09:09 ALT 23 Units/L (12-78) 01/28/20 09:09 Alkaline Phosphatase 73 Units/L (46-116) 01/28/20 09:09 Creatine Kinase 24 Units/L (39-308) L 01/22/20 05:10 CK-MB (CK-2) 1.0 ng/mL (0-4.0) 01/22/20 05:10 CK/CKMB % Calc 4.2 % (<4) 01/22/20 05:10 Troponin I < 0.02 ng/mL (0-1.5) 01/22/20 05:10 C-Reactive Protein 23.50 mg/L (0-3.0) H 01/27/20 09:25 Total Protein 5.9 g/dL (6.4-8.2) L 01/28/20 09:09 Albumin 2.4 g/dL (3.4-5.0) L 01/28/20 09:09 Globulin 3.5 g/dL (2.5-4.5) 01/28/20 09:09 Albumin/Globulin Ratio 0.7 Ratio (1.1-2.1) L 01/28/20 09:09 Amylase 39 Units/L (25-115) 01/22/20 05:10 Lipase 77 Units/L (73-393) 01/22/20 05:10 Specimen Type Clean catch urine 01/22/20 00:50 Urine Color Yellow (YELLOW) 01/22/20 00:50 Urine Appearance Clear (CLEAR) 01/22/20 00:50 Urine pH 8.0 (5.0 - 8.0) 01/22/20 00:50 Ur Specific [place] 1.010 (1.000-1.030) 01/22/20 00:50 Urine Protein 2+ (NEGATIVE) 01/22/20 00:50 Urine Glucose (UA) Negative (NEGATIVE) 01/22/20 00:50 Urine Ketones Negative (NEGATIVE) 01/22/20 00:50 Urine Occult Blood 2+ (NEGATIVE) 01/22/20 00:50 Urine Nitrite Negative (NEGATIVE) 01/22/20 00:50 Urine Bilirubin Negative (NEGATIVE) 01/22/20 00:50 Urine Urobilinogen Normal (NORMAL) 01/22/20 00:50 Ur Leukocyte Esterase 1+ (NEGATIVE) 01/22/20 00:50 Urine RBC 3-5 /HPF (0-3) A 01/22/20 00:50 Urine WBC 0-2 /HPF (0-5) 01/22/20 00:50 Ur Squamous Epith Cells Few /HPF (NEGATIVE) 01/22/20 00:50 Urine Bacteria Trace /HPF (NEGATIVE) 01/22/20 00:50 Ur Culture Indicated? No/not indicated 01/22/20 00:50 Gastric Fluid pH 4 01/22/20 02:19 Gastric Occult Blood Positive (NEGATIVE) A 01/22/20 02:19 Stool Description Ifob 01/22/20 05:20 Stl Occult Blood (IFOB) Positive (NEGATIVE) A 01/22/20 05:20 Stl C. diff Tox B Gene Negative (NEGATIVE) 01/25/20 18:00 Stl C. diff 027-NAP1-BI Negative (NEGATIVE) 01/25/20 18:00 SARS-CoV-2 (PCR) Negative (NEGATIVE) 01/21/20 23:28 Tissue Pathology To follow 01/24/20 12:30 Miscellaneous Test Covid 19 01/22/20 16:45 Blood Type O POSITIVE 01/27/20 02:10 Antibody Screen Negative 01/27/20 02:10 Crossmatch See Detail 01/27/20 02:10 - Plan (1) Pneumonia Status: Acute Qualifiers: Pneumonia type: due to unspecified organism Laterality: bilateral Lung location: unspecified part of lung Qualified Code(s): J18.9 - Pneumonia, unspecified organism Plan: NORMAL SALINE AT 50 ML/HR, ZOSYN 3.375G IV TID, AZITHROMYCIN 500MG IV DAILY, PEPCID 20MG IV DAILY, A PROTONIX DRIP, ZOFRAN 4MG IV Q6H PRN, DUONEBS QID, AND HIS HOME MEDICATIONS WERE RESUMED (2) Hypoxia Status: Acute (3) GI bleed Status: Acute Qualifiers: GI bleed type/associated pathology: gastritis Gastritis type: acute gastritis Qualified Code(s): K29.01 - Acute gastritis with bleeding (4) Anemia Status: Acute Qualifiers: Anemia type: unspecified type Qualified Code(s): D64.9 - Anemia, unspecified Plan: MONITOR H&H Q6H, CONTINUE TO MONITOR (5) Gastritis Status: Acute Qualifiers: Gastritis type: unspecified gastritis Chronicity: acute Gastritis bleeding: with bleeding Qualified Code(s): K29.01 - Acute gastritis with bleeding Plan: CONSULT GENERAL SUGERY, CONTINUE TO MONITOR
[2020-01-28] MEDS: PULMICORT NEB TX 0.5 MG NEB SCH ×2 (11:41→20:17)
[2020-01-28] MEDS: DUONEB 0.5 MG/3 MG (3 mL) NEB SCH ×4 (11:41→20:17)
[2020-01-28] MEDS ORDERED: NS 1000 ML 1,000 ML ONE ×2 (11:48→14:02)
[2020-01-28] MEDS ORDERED: DILAUDID INJ ONE (14:02)
[2020-01-28 15:02] LABS: HEMATOCRIT 30.3 % (42.0-54.0); HEMOGLOBIN 9.9 g/dL (13.5-18.0)
[2020-01-28] MEDS ORDERED: POLYMYXIN B SULFATE ONE (15:49)
[2020-01-28 17:19] LABS: PLATELET COUNT 267 X10^3/uL (150.0-450.0)
[2020-01-28 17:28] LABS: ALBUMIN 1.8 g/dL (3.4-5.0); CALCIUM 7.3 mg/dL (8.5-10.1); CARBON DIOXIDE 24.1 mmol/L (21-32); COR CA(FOR HYPOALB) 9.1 mg/dL (8.5-10.1); CREATININE 1.59 mg/dL (0.70-1.30); TOTAL PROTEIN 4.5 g/dL (6.4-8.2)
[2020-01-28 17:29] LABS: BASOPHILS # (AUTO) 0.2 X10^3/uL (0.0-0.1); BASOPHILS % (AUTO) 0.7 % (0.2-1.0); EOSINOPHILS # (AUTO) 0.2 x10^3/uL (0.0-0.2); EOSINOPHILS % (AUTO) 0.8 % (0.9-2.9); HEMATOCRIT 28.5 % (42.0-54.0); HEMOGLOBIN 9.6 g/dL (13.5-18.0); LYMPHOCYTES # (AUTO) 1.3 X10^3/uL (1.3-2.9); LYMPHOCYTES % (AUTO) 4.2 % (21.0-51.0); MEAN CORPUSCULAR HEMOGLOBIN 30.1 pg (27.0-34.0); MEAN CORPUSCULAR HGB CONC 33.6 g/dL (33.0-35.0); MEAN CORPUSCULAR VOLUME 89.5 fL (80.0-100.0); MEAN PLATELET VOLUME 7.3 fL (7.4-11.0); MONOCYTES # (AUTO) 1.5 x10^3/uL (0.3-0.8); MONOCYTES % (AUTO) 4.9 % (0.0-13.0); NEUTROPHILS # (AUTO) 27.4 x10^3/uL (2.2-4.8); NEUTROPHILS % (AUTO) 89.4 % (42.0-75.0); RED BLOOD COUNT 3.18 X10^6/uL (4.7-6.0); RED CELL DISTRIBUTION WIDTH 14.4 % (11.6-16.5)
[2020-01-28] MEDS: ARIMIDEX PO SCH ×2 (17:41→17:44)
[2020-01-28 17:52] LABS: BAND NEUTROPHILS % 3 % (0-10)
[2020-01-28] MEDS: PEPCID 20 MG IV PREMIX* 20 MG/50 ML BAG IV SCH (17:56)
[2020-01-28] MEDS: ALBUMIN HUMAN 25%- 100 ML 100 ML IV SCH (17:58)
[2020-01-28] MEDS: BRINZOLAMIDE RIGHTEYE SCH ×2 (17:59→21:55)
[2020-01-28] MEDS: ARTIFICIAL TEARS DROPS OP SCH ×2 (17:59→21:55)
[2020-01-28] MEDS: MIRALAX POWDER (1 DOSE 17 G) PO SCH (17:59)
[2020-01-28] MEDS: VSL#3 PO SCH (18:00)
[2020-01-28] MEDS: COLACE CAP 100 MG PO SCH ×2 (18:01→21:26)
[2020-01-28] MEDS: BUSPAR PO SCH (18:01)
[2020-01-28] MEDS: DEMADEX PO SCH (18:01)
[2020-01-28] MEDS: TAB-A-VITE PO SCH ×2 (18:01→22:30)
[2020-01-28 18:24] LABS: PLATELET MORPHOLOGY COMMENT NORMAL (NORMAL)
[2020-01-28] MEDS: DILAUDID INJ IVP PRN (19:54)
[2020-01-28] MEDS: D5 1/2 NS 1000 ML 1,000 ML IV SCH (19:59)
[2020-01-28] MEDS: EXELON PO SCH ×2 (21:25→21:57)
[2020-01-28] MEDS: LOPRESSOR TAB 25 MG PO SCH ×2 (21:25→21:58)
[2020-01-28] MEDS: LEVSIN/MAALOX/LIDOC VISC PO SCH ×3 (21:25→22:32)
[2020-01-28] MEDS: SINGULAIR TAB 10 MG PO SCH (21:26)
[2020-01-28] MEDS: REQUIP PO SCH ×2 (21:26→21:58)
[2020-01-28] MEDS: PROTONIX INJ 40 MG VIAL IVP SCH (21:30)
[2020-01-28] MEDS: NEURONTIN CAP 300 MG PO SCH (21:33)
[2020-01-28] MEDS: LEXAPRO PO SCH (21:57)
[2020-01-28] MEDS: ZANAFLEX PO SCH (22:31)
[2020-01-28 23:19] LABS: HEMATOCRIT 30.6 % (42.0-54.0)
[2020-01-29] MEDS: DOPAMINE IV PREMIX 400 MG/250 ML 400 MG/250 ML BAG IV PRN (02:49)
[2020-01-29] MEDS: DILAUDID INJ IVP PRN ×4 (03:26→21:01)
[2020-01-29] MEDS: CARAFATE PO SCH (05:20)
[2020-01-29] MEDS: D5 1/2 NS 1000 ML 1,000 ML IV SCH ×3 (05:20→18:07)
[2020-01-29] MEDS: VOLTAREN 1 % GEL MULTI DOSE TUBE TOP SCH ×3 (05:21→21:00)
[2020-01-29] MEDS: ZOSYN VIAL 3.375 GRAMS 3.375 G in NS 100 ML IV + SPIKE MINIBAG* 100 ML IV SCH ×3 (05:21→21:45)
[2020-01-29] MEDS: XANAX PO SCH (05:21)
[2020-01-29 06:11] LABS: ALBUMIN 1.6 g/dL (3.4-5.0); CALCIUM 7.6 mg/dL (8.5-10.1); CARBON DIOXIDE 23.9 mmol/L (21-32); COR CA(FOR HYPOALB) 9.5 mg/dL (8.5-10.1); CREATININE 1.86 mg/dL (0.70-1.30); TOTAL PROTEIN 5.1 g/dL (6.4-8.2)
--- NOTE | 2020-01-29 06:13 | RAD ---
HISTORYSOBSTUDYCHEST, 1 VIEWCOMPARISONOne day priorTECHNIQUEAP view of the chestFINDINGSNG tube courses below the visualized field of view. Right IJ central line in good position. Cardiac silhouette is enlarged. Bilateral airspace disease worse compared to prior the right mid and lower lung and left lower lung. Suspect small pleural effusions. No pneumothorax.IMPRESSIONWorsened appearance of bilateral airspace disease as above represent pulmonary edema or pneumonia.Electronically signed by: Ayaz Marin (Jan 29, 2020 06:11:17)
[2020-01-29 06:17] LABS: BASOPHILS # (AUTO) 0.1 X10^3/uL (0.0-0.1); BASOPHILS % (AUTO) 0.2 % (0.2-1.0); HEMATOCRIT 28.6 % (42.0-54.0); HEMOGLOBIN 9.5 g/dL (13.5-18.0); LYMPHOCYTES # (AUTO) 1.4 X10^3/uL (1.3-2.9); LYMPHOCYTES % (AUTO) 5.5 % (21.0-51.0); MEAN CORPUSCULAR HGB CONC 33.1 g/dL (33.0-35.0); MEAN CORPUSCULAR VOLUME 90.7 fL (80.0-100.0); MEAN PLATELET VOLUME 7.4 fL (7.4-11.0); MONOCYTES # (AUTO) 2.1 x10^3/uL (0.3-0.8); MONOCYTES % (AUTO) 8.1 % (0.0-13.0); NEUTROPHILS # (AUTO) 21.9 x10^3/uL (2.2-4.8); NEUTROPHILS % (AUTO) 86.2 % (42.0-75.0); PLATELET COUNT 291 X10^3/uL (150.0-450.0); RED BLOOD COUNT 3.15 X10^6/uL (4.7-6.0); RED CELL DISTRIBUTION WIDTH 14.6 % (11.6-16.5); WHITE BLOOD COUNT 25.4 X10^3/uL (3.6-10.0)
[2020-01-29 06:51] LABS: BAND NEUTROPHILS % 1 % (0-10); PLATELET MORPHOLOGY COMMENT NORMAL (NORMAL)
[2020-01-29] MEDS: ARIMIDEX PO SCH (08:29)
[2020-01-29] MEDS: ARTIFICIAL TEARS DROPS OP SCH ×2 (08:29→20:52)
[2020-01-29] MEDS: BRINZOLAMIDE RIGHTEYE SCH ×2 (08:30→20:52)
[2020-01-29] MEDS: BUSPAR PO SCH (08:31)
[2020-01-29] MEDS: DEMADEX PO SCH (08:31)
[2020-01-29] MEDS: COLACE CAP 100 MG PO SCH (08:31)
[2020-01-29] MEDS: EXELON PO SCH (08:31)
[2020-01-29] MEDS: LOPRESSOR TAB 25 MG PO SCH (08:32)
[2020-01-29] MEDS: LEVSIN/MAALOX/LIDOC VISC PO SCH (08:32)
[2020-01-29] MEDS: LEXAPRO PO SCH (08:32)
[2020-01-29] MEDS: MIRALAX POWDER (1 DOSE 17 G) PO SCH (08:32)
[2020-01-29] MEDS: REQUIP PO SCH (08:33)
[2020-01-29] MEDS: TAB-A-VITE PO SCH ×2 (08:33→20:52)
[2020-01-29] MEDS: VSL#3 PO SCH (08:33)
[2020-01-29] MEDS: ALBUMIN HUMAN 25%- 100 ML 100 ML IV SCH (08:46)
[2020-01-29 09:33] LABS: WHITE BLOOD COUNT 30.6 X10^3/uL (3.6-10.0)
[2020-01-29] MEDS: PROTONIX INJ 40 MG VIAL IVP SCH ×2 (09:48→20:52)
[2020-01-29] MEDS: PEPCID 20 MG IV PREMIX* 20 MG/50 ML BAG IV SCH (09:50)
[2020-01-29] MEDS: PULMICORT NEB TX 0.5 MG NEB SCH ×2 (09:52→21:25)
[2020-01-29] MEDS: DUONEB 0.5 MG/3 MG (3 mL) NEB SCH ×4 (09:52→21:25)
--- NOTE | 2020-01-29 11:04 | DR.PROGNOT ---
Hospital Progress Notes - Progress Note for Day of: Progress Note Date: 01/29/20 - Chief Complaint Chief Complaint: day 1 post op laparotomy , lysis of adhesions . partial gastrectomy , excision of naya duodenal lymph node . Pt is sleepy but stable . no active bleeding . still on Dopamine . moderate bile drainage in [place] . WBC 35.4. Hgb 9.5 ..lyte normal .. plt normal BUN/Crea 38/1.8. temp 100 - Past Medical Family Social History Past Med/Fam/Surg Hx: No changes since H&P Allergies: Allergies ciprofloxacin Allergy (Verified 01/21/20 22:31) doxycycline Allergy (Verified 01/21/20 22:31) levofloxacin [From Levaquin] Allergy (Verified 01/21/20 22:31) meloxicam [From Mobic] Allergy (Verified 01/21/20 22:31) - Review Of Systems ROS: No change since H&P - Vital Signs Vital Signs: Temperature 100.1 F Pulse Rate [Left] 89 Pulse Rate 114 Respiratory Rate 20 Blood Pressure [Left Arm] 117/58 Blood Pressure [Right Arm] 100/49 Blood Pressure 114/62 O2 Sat by Pulse Oximetry 97 - Physical Exam Oriented: Other (sleepy ,resting in bed ) Eyes: Normal Ear: Normal Nose: Normal Throat: Normal Respiratory: Generalized, Wheezes Cardiovascular: Normal : Normal GI:Auscultation: Normal, Decreased GI:Palpation: Normal GI: Tenderness: Diffuse (soft abdomen with mild epigastric tenderness ), Moderate (soft abdomen with diffuse tenderness .BS hypo active ) Skin: Normal Musculoskeletal: Back:Lumbar, Pelvis, Tender Psychiatric: Normal Mood Description: Calm Affect: Normal Speech Pattern: Clear, Appropriate - Laboratory and Diagnostics Result Diagrams: 01/29/20 05:49 01/29/20 05:49 Labs: 01/21/20 18:25 Blood Blood Culture - Final 01/21/20 18:28 Blood Blood Culture - Final Laboratory WBC 25.4 X10^3/uL (3.6-10.0) H 01/29/20 05:49 RBC 3.15 X10^6/uL (4.7-6.0) L 01/29/20 05:49 Hgb 9.5 g/dL (13.5-18.0) L 01/29/20 05:49 Hct 28.6 % (42.0-54.0) L 01/29/20 05:49 MCV 90.7 fL (80.0-100.0) 01/29/20 05:49 MCH 30.0 pg (27.0-34.0) 01/29/20 05:49 MCHC 33.1 g/dL (33.0-35.0) 01/29/20 05:49 RDW 14.6 % (11.6-16.5) 01/29/20 05:49 Plt Count 291 X10^3/uL (150.0-450.0) 01/29/20 05:49 Plt Count Comment Adequate (ADEQUATE) 01/29/20 05:49 MPV 7.4 fL (7.4-11.0) 01/29/20 05:49 Neut % (Auto) 86.2 % (42.0-75.0) H 01/29/20 05:49 Lymph % (Auto) 5.5 % (21.0-51.0) L 01/29/20 05:49 [place] % (Auto) 8.1 % (0.0-13.0) 01/29/20 05:49 Eos % (Auto) 0.0 % (0.9-2.9) L 01/29/20 05:49 Baso % (Auto) 0.2 % (0.2-1.0) 01/29/20 05:49 Neut # (Auto) 21.9 x10^3/uL (2.2-4.8) H 01/29/20 05:49 Lymph # (Auto) 1.4 X10^3/uL (1.3-2.9) 01/29/20 05:49 [place] # (Auto) 2.1 x10^3/uL (0.3-0.8) H 01/29/20 05:49 Eos # (Auto) 0.0 x10^3/uL (0.0-0.2) 01/29/20 05:49 Baso # (Auto) 0.1 X10^3/uL (0.0-0.1) 01/29/20 05:49 Absolute Nucleated RBC 0.0 /100WBC 01/29/20 05:49 Total Counted 100 01/29/20 05:49 Neutrophils % (Manual) 85 % (39-76) H 01/29/20 05:49 Band Neutrophils % 1 % (0-10) 01/29/20 05:49 Lymphocytes % (Manual) 8 % (13-43) L 01/29/20 05:49 Monocytes % (Manual) 5 % (4-9) 01/29/20 05:49 Eosinophils % (Manual) 1 % (0-6) 01/29/20 05:49 Plt Morphology Comment Normal (NORMAL) 01/29/20 05:49 RBC Morphology Normal (NORMAL) 01/29/20 05:49 Hypochromasia Slight A 01/21/20 18:25 Poikilocytosis Slight A 01/21/20 18:25 PT 14.6 SECONDS (11.8-14.3) 01/27/20 09:25 INR Target Range - 01/27/20 09: INR 1.17 (0.8-1.3) 01/27/20 09:25 APTT 30.6 SECONDS (22.9-36.5) 01/27/20 09:25 PTT Comment - 01/27/20 09:25 Sample Site Rb 01/28/20 09:29 ABG pH 7.480 (7.35-7.45) H 01/28/20 09:29 ABG pCO2 36.0 mmHg (35.0-45.0) 01/28/20 09:29 ABG pO2 86.0 mmHg (80.0-100.0) 01/28/20 09:29 ABG HCO3 26.8 mmol/L (22-26) H 01/28/20 09:29 ABG O2 Saturation 97.0 % (90-100) 01/28/20 09:29 ABG Base Excess 3.3 mmol/L (-2.0-2.0) H 01/28/20 09:29 Dani Test Na 01/28/20 09:29 A-a Gradient 54.0 mmHg 01/28/20 09:29 FiO2 26.0 01/28/20 09:29 Blood Gas Comments Sarah well 01/28/20 09:29 Sodium 143 mmol/L (136-145) 01/29/20 05:49 Corrected Sodium 145 mmol/L (136-145) 01/29/20 05:49 Potassium 4.4 mmol/L (3.5-5.1) 01/29/20 05:49 Chloride 111 mmol/L (98-107) H 01/29/20 05:49 Carbon Dioxide 23.9 mmol/L (21-32) 01/29/20 05:49 BUN 38 mg/dL (7-18) H 01/29/20 05:49 Creatinine 1.86 mg/dL (0.70-1.30) H 01/29/20 05:49 Est GFR (MDRD) Af Amer 44 (>60) L 01/29/20 05:49 Est GFR (MDRD) Non-Af 37 (>60) L 01/29/20 05:49 Glucose 186 mg/dL (65-99) H 01/29/20 05:49 Lactic Acid 1.4 mmol/L (0.4-2.0) 01/21/20 18:25 Calcium 7.6 mg/dL (8.5-10.1) L 01/29/20 05:49 Corrected Calcium 9.5 mg/dL (8.5-10.1) 01/29/20 05:49 Ferritin 502 ng/mL (26-388) H 01/21/20 18:25 Total Bilirubin 1.50 mg/dL (0.2-1.0) H 01/29/20 05:49 AST 41 Units/L (15-37) H 01/29/20 05:49 ALT 26 Units/L (12-78) 01/29/20 05:49 Alkaline Phosphatase 64 Units/L (46-116) 01/29/20 05:49 Creatine Kinase 24 Units/L (39-308) L 01/22/20 05:10 CK-MB (CK-2) 1.0 ng/mL (0-4.0) 01/22/20 05:10 CK/CKMB % Calc 4.2 % (<4) 01/22/20 05:10 Troponin I < 0.02 ng/mL (0-1.5) 01/22/20 05:10 C-Reactive Protein 23.50 mg/L (0-3.0) H 01/27/20 09:25 Total Protein 5.1 g/dL (6.4-8.2) L 01/29/20 05:49 Albumin 1.6 g/dL (3.4-5.0) L 01/29/20 05:49 Globulin 3.5 g/dL (2.5-4.5) 01/29/20 05:49 Albumin/Globulin Ratio 0.5 Ratio (1.1-2.1) L 01/29/20 05:49 Amylase 39 Units/L (25-115) 01/22/20 05:10 Lipase 77 Units/L (73-393) 01/22/20 05:10 Specimen Type Clean catch urine 01/22/20 00:50 Urine Color Yellow (YELLOW) 01/22/20 00:50 Urine Appearance Clear (CLEAR) 01/22/20 00:50 Urine pH 8.0 (5.0 - 8.0) 01/22/20 00:50 Ur Specific [place] 1.010 (1.000-1.030) 01/22/20 00:50 Urine Protein 2+ (NEGATIVE) 01/22/20 00:50 Urine Glucose (UA) Negative (NEGATIVE) 01/22/20 00:50 Urine Ketones Negative (NEGATIVE) 01/22/20 00:50 Urine Occult Blood 2+ (NEGATIVE) 01/22/20 00:50 Urine Nitrite Negative (NEGATIVE) 01/22/20 00:50 Urine Bilirubin Negative (NEGATIVE) 01/22/20 00:50 Urine Urobilinogen Normal (NORMAL) 01/22/20 00:50 Ur Leukocyte Esterase 1+ (NEGATIVE) 01/22/20 00:50 Urine RBC 3-5 /HPF (0-3) A 01/22/20 00:50 Urine WBC 0-2 /HPF (0-5) 01/22/20 00:50 Ur Squamous Epith Cells Few /HPF (NEGATIVE) 01/22/20 00:50 Urine Bacteria Trace /HPF (NEGATIVE) 01/22/20 00:50 Ur Culture Indicated? No/not indicated 01/22/20 00:50 Gastric Fluid pH 4 01/22/20 02:19 Gastric Occult Blood Positive (NEGATIVE) A 01/22/20 02:19 Stool Description Ifob 01/22/20 05:20 Stl Occult Blood (IFOB) Positive (NEGATIVE) A 01/22/20 05:20 Stl C. diff Tox B Gene Negative (NEGATIVE) 01/25/20 18:00 Stl C. diff 027-NAP1-BI Negative (NEGATIVE) 01/25/20 18:00 SARS-CoV-2 (PCR) Negative (NEGATIVE) 01/21/20 23:28 Tissue Pathology To follow 01/28/20 16:34 Miscellaneous Test Covid 19 01/22/20 16:45 Blood Type O POSITIVE 01/27/20 02:10 Antibody Screen Negative 01/27/20 02:10 Crossmatch See Detail 01/27/20 02:10 - Assessment and Plan 1: Post op day 1. exploratory laparotomy . lysis of adhesions . 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 for bleeding and partial obstructing large penetrating duodenal ulcer with inflammation and scaring . naya duodenal adenopathy .. same PO care - Problem Patient Problems: Patient Problems Anemia (Acute) D64.9 Hypoxia (Acute) R09.02 Gastritis (Acute) K29.70 GI bleed (Acute) K92.2 Pneumonia (Acute) J18.9
--- NOTE | 2020-01-29 11:21 | PCM.PROG ---
Progress Note Progress Note for Day of Date of Exam: 01/29/20 Subjective Subjective: Patient seen at bedside. He opens eyes when called by name and then goes back to sleep. He is Post-op Day 1 s/p exploratory laparotomy with lysis of adhesions. He also had partial gastrectomy with R-en Y gastro jejunostomy for bleeding and partial obstructing large penetrating duodenal ulcer. Patient currently has NGT and central line. He was noted to be hypotensive after surgery and was placed on Dopamine drip. He is currently on 5mcg and also receiving IV fluids. Labs: Hgb 9.5 BUN/Cr: 38/1.86 CXR: worsening infiltrates/pulmonary edema ECHO: EF 40% Plan: follow Dr. Wetzel's recommendations, keep patient NPO, no crushed medications. Will switch over to IV medications only. Decreased IVF to 75cc/hr, wean down Dopamine as tolerated to keep MAP>65. Hgb stable. Monitor AM labs. Continue protonix drip. Continue IV Zosyn and azithromycin. Continue pain control. Critical care time spent 31-74 mins for clinical assessment, reviewing imaging/labs, decision making and documentation. Past Medical Family Social History Past Med/Fam/Surg Hx: No changes since H&P Allergies: Allergies ciprofloxacin Allergy (Verified 01/21/20 22:31) doxycycline Allergy (Verified 01/21/20 22:31) levofloxacin [From Levaquin] Allergy (Verified 01/21/20 22:31) meloxicam [From Mobic] Allergy (Verified 01/21/20 22:31) Review of Systems ROS: No change since H&P Vital Signs and I&O's Vital Signs: Temperature 100.1 F Pulse Rate [Left] 89 Pulse Rate 114 Respiratory Rate 20 Blood Pressure [Left Arm] 117/58 Blood Pressure [Right Arm] 100/49 Blood Pressure 114/62 O2 Sat by Pulse Oximetry 97 Intake and Output: Intake & Output 01/26/20 01/27/20 01/28/20 01/29/20 23:59 23:59 23:59 23:59 Intake Total 1607 / 1607 2193 / 2193 7920 / 7920 881 / 881 Output Total 250 / 250 350 / 350 3379 / 3379 140 / 140 Balance 1357 / 1357 1843 / 1843 4541 / 4541 741 / 741 Physical Exam Oriented: Other (sleepy ,resting in bed ) Eyes: Normal Ear: Normal Nose: Normal Throat: Dry Respiratory: Generalized and Diminished Cardiovascular: Normal Auscultation: Bowel Sounds: Decreased Tenderness: Moderate (soft abdomen with diffuse tenderness .BS hypo active ) Skin: Decreased [place] Musculoskeletal: Back:Lumbar, Pelvis and Tender Psychiatric: Normal Mood Description: Calm Affect: Normal Laboratory and Diagnostics Result Diagrams: 01/29/20 05:49 01/29/20 05:49 Labs: 01/21/20 18:25 Blood Blood Culture - Final 01/21/20 18:28 Blood Blood Culture - Final Laboratory WBC 25.4 X10^3/uL (3.6-10.0) H 01/29/20 05:49 RBC 3.15 X10^6/uL (4.7-6.0) L 01/29/20 05:49 Hgb 9.5 g/dL (13.5-18.0) L 01/29/20 05:49 Hct 28.6 % (42.0-54.0) L 01/29/20 05:49 MCV 90.7 fL (80.0-100.0) 01/29/20 05:49 MCH 30.0 pg (27.0-34.0) 01/29/20 05:49 MCHC 33.1 g/dL (33.0-35.0) 01/29/20 05:49 RDW 14.6 % (11.6-16.5) 01/29/20 05:49 Plt Count 291 X10^3/uL (150.0-450.0) 01/29/20 05:49 Plt Count Comment Adequate (ADEQUATE) 01/29/20 05:49 MPV 7.4 fL (7.4-11.0) 01/29/20 05:49 Neut % (Auto) 86.2 % (42.0-75.0) H 01/29/20 05:49 Lymph % (Auto) 5.5 % (21.0-51.0) L 01/29/20 05:49 [place] % (Auto) 8.1 % (0.0-13.0) 01/29/20 05:49 Eos % (Auto) 0.0 % (0.9-2.9) L 01/29/20 05:49 Baso % (Auto) 0.2 % (0.2-1.0) 01/29/20 05:49 Neut # (Auto) 21.9 x10^3/uL (2.2-4.8) H 01/29/20 05:49 Lymph # (Auto) 1.4 X10^3/uL (1.3-2.9) 01/29/20 05:49 [place] # (Auto) 2.1 x10^3/uL (0.3-0.8) H 01/29/20 05:49 Eos # (Auto) 0.0 x10^3/uL (0.0-0.2) 01/29/20 05:49 Baso # (Auto) 0.1 X10^3/uL (0.0-0.1) 01/29/20 05:49 Absolute Nucleated RBC 0.0 /100WBC 01/29/20 05:49 Total Counted 100 01/29/20 05:49 Neutrophils % (Manual) 85 % (39-76) H 01/29/20 05:49 Band Neutrophils % 1 % (0-10) 01/29/20 05:49 Lymphocytes % (Manual) 8 % (13-43) L 01/29/20 05:49 Monocytes % (Manual) 5 % (4-9) 01/29/20 05:49 Eosinophils % (Manual) 1 % (0-6) 01/29/20 05:49 Plt Morphology Comment Normal (NORMAL) 01/29/20 05:49 RBC Morphology Normal (NORMAL) 01/29/20 05:49 Hypochromasia Slight A 01/21/20 18:25 Poikilocytosis Slight A 01/21/20 18:25 PT 14.6 SECONDS (11.8-14.3) 01/27/20 09:25 INR Target Range - 01/27/20 09:25 INR 1.17 (0.8-1.3) 01/27/20 09:25 APTT 30.6 SECONDS (22.9-36.5) 01/27/20 09:25 PTT Comment - 01/27/20 09:25 Sample Site Rb 01/28/20 09:29 ABG pH 7.480 (7.35-7.45) H 01/28/20 09:29 ABG pCO2 36.0 mmHg (35.0-45.0) 01/28/20 09:29 ABG pO2 86.0 mmHg (80.0-100.0) 01/28/20 09:29 ABG HCO3 26.8 mmol/L (22-26) H 01/28/20 09:29 ABG O2 Saturation 97.0 % (90-100) 01/28/20 09:29 ABG Base Excess 3.3 mmol/L (-2.0-2.0) H 01/28/20 09:29 Dani Test Na 01/28/20 09:29 A-a Gradient 54.0 mmHg 01/28/20 09:29 FiO2 26.0 01/28/20 09:29 Blood Gas Comments Sarah well 01/28/20 09:29 Sodium 143 mmol/L (136-145) 01/29/20 05:49 Corrected Sodium 145 mmol/L (136-145) 01/29/20 05:49 Potassium 4.4 mmol/L (3.5-5.1) 01/29/20 05:49 Chloride 111 mmol/L (98-107) H 01/29/20 05:49 Carbon Dioxide 23.9 mmol/L (21-32) 01/29/20 05:49 BUN 38 mg/dL (7-18) H 01/29/20 05:49 Creatinine 1.86 mg/dL (0.70-1.30) H 01/29/20 05:49 Est GFR (MDRD) Af Amer 44 (>60) L 01/29/20 05:49 Est GFR (MDRD) Non-Af 37 (>60) L 01/29/20 05:49 Glucose 186 mg/dL (65-99) H 01/29/20 05:49 Lactic Acid 1.4 mmol/L (0.4-2.0) 01/21/20 18:25 Calcium 7.6 mg/dL (8.5-10.1) L 01/29/20 05:49 Corrected Calcium 9.5 mg/dL (8.5-10.1) 01/29/20 05:49 Ferritin 502 ng/mL (26-388) H 01/21/20 18:25 Total Bilirubin 1.50 mg/dL (0.2-1.0) H 01/29/20 05:49 AST 41 Units/L (15-37) H 01/29/20 05:49 ALT 26 Units/L (12-78) 01/29/20 05:49 Alkaline Phosphatase 64 Units/L (46-116) 01/29/20 05:49 Creatine Kinase 24 Units/L (39-308) L 01/22/20 05:10 CK-MB (CK-2) 1.0 ng/mL (0-4.0) 01/22/20 05:10 CK/CKMB % Calc 4.2 % (<4) 01/22/20 05:10 Troponin I < 0.02 ng/mL (0-1.5) 01/22/20 05:10 C-Reactive Protein 23.50 mg/L (0-3.0) H 01/27/20 09:25 Total Protein 5.1 g/dL (6.4-8.2) L 01/29/20 05:49 Albumin 1.6 g/dL (3.4-5.0) L 01/29/20 05:49 Globulin 3.5 g/dL (2.5-4.5) 01/29/20 05:49 Albumin/Globulin Ratio 0.5 Ratio (1.1-2.1) L 01/29/20 05:49 Amylase 39 Units/L (25-115) 01/22/20 05:10 Lipase 77 Units/L (73-393) 01/22/20 05:10 Specimen Type Clean catch urine 01/22/20 00:50 Urine Color Yellow (YELLOW) 01/22/20 00:50 Urine Appearance Clear (CLEAR) 01/22/20 00:50 Urine pH 8.0 (5.0 - 8.0) 01/22/20 00:50 Ur Specific [place] 1.010 (1.000-1.030) 01/22/20 00:50 Urine Protein 2+ (NEGATIVE) 01/22/20 00:50 Urine Glucose (UA) Negative (NEGATIVE) 01/22/20 00:50 Urine Ketones Negative (NEGATIVE) 01/22/20 00:50 Urine Occult Blood 2+ (NEGATIVE) 01/22/20 00:50 Urine Nitrite Negative (NEGATIVE) 01/22/20 00:50 Urine Bilirubin Negative (NEGATIVE) 01/22/20 00:50 Urine Urobilinogen Normal (NORMAL) 01/22/20 00:50 Ur Leukocyte Esterase 1+ (NEGATIVE) 01/22/20 00:50 Urine RBC 3-5 /HPF (0-3) A 01/22/20 00:50 Urine WBC 0-2 /HPF (0-5) 01/22/20 00:50 Ur Squamous Epith Cells Few /HPF (NEGATIVE) 01/22/20 00:50 Urine Bacteria Trace /HPF (NEGATIVE) 01/22/20 00:50 Ur Culture Indicated? No/not indicated 01/22/20 00:50 Gastric Fluid pH 4 01/22/20 02:19 Gastric Occult Blood Positive (NEGATIVE) A 01/22/20 02:19 Stool Description Ifob 01/22/20 05:20 Stl Occult Blood (IFOB) Positive (NEGATIVE) A 01/22/20 05:20 Stl C. diff Tox B Gene Negative (NEGATIVE) 01/25/20 18:00 Stl C. diff 027-NAP1-BI Negative (NEGATIVE) 01/25/20 18:00 SARS-CoV-2 (PCR) Negative (NEGATIVE) 01/21/20 23:28 Tissue Pathology To follow 01/28/20 16:34 Miscellaneous Test Covid 19 01/22/20 16:45 Blood Type O POSITIVE 01/27/20 02:10 Antibody Screen Negative 01/27/20 02:10 Crossmatch See Detail 01/27/20 02:10 Plan (1) S/P exploratory laparotomy: Status: Acute (2) Hypotension: Status: Acute Qualifiers: Hypotension type: postprocedural hypotension Qualified Code(s): I95.81 - Postprocedural hypotension (3) Pneumonia: Status: Acute Qualifiers: Laterality: bilateral Lung location: unspecified part of lung Pneumonia type: due to unspecified organism Qualified Code(s): J18.9 - Pneumonia, unspecified organism (4) Hypoxia: Status: Acute (5) GI bleed: Status: Acute Qualifiers: GI bleed type/associated pathology: gastritis Gastritis type: acute gastritis Qualified Code(s): K29.01 - Acute gastritis with bleeding (6) Pyloric ulcer: Status: Acute Qualifiers: Gastric ulcer chronicity: acute Qualified Code(s): K25.3 - Acute gastric ulcer without hemorrhage or perforation (7) Anemia: Status: Acute Qualifiers: Anemia type: unspecified type Qualified Code(s): D64.9 - Anemia, unspecified (8) Gastritis: Status: Acute Qualifiers: Chronicity: acute Gastritis bleeding: with bleeding Gastritis type: unspecified gastritis Qualified Code(s): K29.01 - Acute gastritis with bleeding (9) Acute renal injury: Status: Acute
[2020-01-29] MEDS ORDERED: ATIVAN INJ 2 MG VIAL IVP PRN (11:22)
[2020-01-29 13:44] LABS: BASOPHILS # (AUTO) 0.1 X10^3/uL (0.0-0.1); BASOPHILS % (AUTO) 0.4 % (0.2-1.0); HEMATOCRIT 29.1 % (42.0-54.0); HEMOGLOBIN 9.5 g/dL (13.5-18.0); MEAN CORPUSCULAR HEMOGLOBIN 29.8 pg (27.0-34.0); MEAN CORPUSCULAR HGB CONC 32.7 g/dL (33.0-35.0); MEAN PLATELET VOLUME 7.2 fL (7.4-11.0); MONOCYTES # (AUTO) 2.4 x10^3/uL (0.3-0.8); NEUTROPHILS # (AUTO) 30.7 x10^3/uL (2.2-4.8); NEUTROPHILS % (AUTO) 89.6 % (42.0-75.0); PLATELET COUNT 287 X10^3/uL (150.0-450.0); RED CELL DISTRIBUTION WIDTH 14.7 % (11.6-16.5); WHITE BLOOD COUNT 34.3 X10^3/uL (3.6-10.0)
[2020-01-29] MEDS: EXELON PATCH TD SCH (15:51)
[2020-01-29] MEDS: OFIRMEV IV 1000 MG VIAL 1,000 MG/100 ML VIAL IV PRN ×2 (17:24→23:13)
[2020-01-29] MEDS: ZITHROMAX INJ 500 MG VIAL 500 MG in D5W 250 ML IV 250 ML IV SCH (20:53)
[2020-01-29 22:33] LABS: HEMATOCRIT 26.3 % (42.0-54.0); HEMOGLOBIN 8.6 g/dL (13.5-18.0)
[2020-01-29] MEDS ORDERED: LOPRESSOR INJ 5 MG AMP IVP ONE (23:06)
[2020-01-29] MEDS ORDERED: LOPRESSOR INJ 5 MG AMP ONE (23:11)
[2020-01-30] MEDS: DOPAMINE IV PREMIX 400 MG/250 ML 400 MG/250 ML BAG IV PRN ×3 (00:18→23:36)
[2020-01-30] MEDS: D5 1/2 NS 1000 ML 1,000 ML IV SCH (01:23)
[2020-01-30] MEDS: DILAUDID INJ IVP PRN ×3 (01:23→17:08)
[2020-01-30] MEDS ORDERED: LOPRESSOR INJ 5 MG AMP IVP ONE (01:35)
[2020-01-30] MEDS ORDERED: LOPRESSOR INJ 5 MG AMP ONE (01:36)
[2020-01-30] MEDS: VOLTAREN 1 % GEL MULTI DOSE TUBE TOP SCH ×3 (05:09→21:07)
[2020-01-30] MEDS: ZOSYN VIAL 3.375 GRAMS 3.375 G in NS 100 ML IV + SPIKE MINIBAG* 100 ML IV SCH (05:09)
[2020-01-30 06:04] LABS: ALBUMIN 1.8 g/dL (3.4-5.0); CALCIUM 7.7 mg/dL (8.5-10.1); COR CA(FOR HYPOALB) 9.5 mg/dL (8.5-10.1); CREATININE 2.72 mg/dL (0.70-1.30); TOTAL PROTEIN 5.5 g/dL (6.4-8.2)
[2020-01-30 06:11] LABS: BASOPHILS # (AUTO) 0.1 X10^3/uL (0.0-0.1); BASOPHILS % (AUTO) 0.2 % (0.2-1.0); HEMATOCRIT 26.9 % (42.0-54.0); HEMOGLOBIN 8.9 g/dL (13.5-18.0); LYMPHOCYTES # (AUTO) 1.1 X10^3/uL (1.3-2.9); LYMPHOCYTES % (AUTO) 2.8 % (21.0-51.0); MEAN CORPUSCULAR HGB CONC 32.9 g/dL (33.0-35.0); MEAN CORPUSCULAR VOLUME 91.2 fL (80.0-100.0); MEAN PLATELET VOLUME 7.7 fL (7.4-11.0); MONOCYTES # (AUTO) 1.5 x10^3/uL (0.3-0.8); MONOCYTES % (AUTO) 3.9 % (0.0-13.0); NEUTROPHILS # (AUTO) 35.7 x10^3/uL (2.2-4.8); NEUTROPHILS % (AUTO) 93.1 % (42.0-75.0); PLATELET COUNT 300 X10^3/uL (150.0-450.0); RED BLOOD COUNT 2.95 X10^6/uL (4.7-6.0); RED CELL DISTRIBUTION WIDTH 15.4 % (11.6-16.5)
[2020-01-30] MEDS: OFIRMEV IV 1000 MG VIAL 1,000 MG/100 ML VIAL IV PRN ×2 (06:20→19:46)
[2020-01-30 06:23] LABS: WHITE BLOOD COUNT 38.4 X10^3/uL (3.6-10.0)
--- NOTE | 2020-01-30 06:38 | RAD ---
HISTORYSOBSTUDYCHEST, 1 VIEWCOMPARISONOne day prior.TECHNIQUEAP view of the chestFINDINGSNG tube courses below the visualized field of view. Right IJ central line in good position. Cardiac silhouette stably enlarged. No significant change in bilateral airspace disease, worse on the right. No pneumothorax.Cannot exclude pleural effusions.IMPRESSIONNo significant change.Electronically signed by: Ayaz Marin (Jan 30, 2020 06:36:53)
[2020-01-30] MEDS ORDERED: ATIVAN INJ 2 MG VIAL ONE (07:02)
[2020-01-30] MEDS ORDERED: ATIVAN INJ 2 MG VIAL IVP STA (07:05)
[2020-01-30 07:12] LABS: BAND NEUTROPHILS % 8 % (0-10); PLATELET MORPHOLOGY COMMENT NORMAL (NORMAL)
[2020-01-30] MEDS ORDERED: NS 250 ML IV 250 ML IV ONE ×2 (07:42→10:25)
[2020-01-30] MEDS: ALBUMIN HUMAN 25%- 100 ML 100 ML IV SCH (08:39)
[2020-01-30] MEDS: ARTIFICIAL TEARS DROPS OP SCH ×2 (08:39→21:07)
[2020-01-30] MEDS: PEPCID 20 MG IV PREMIX* 20 MG/50 ML BAG IV SCH (08:40)
[2020-01-30] MEDS: BRINZOLAMIDE RIGHTEYE SCH ×2 (08:40→21:07)
[2020-01-30] MEDS: EXELON PATCH TD SCH ×2 (08:40→11:00)
[2020-01-30] MEDS: PROTONIX INJ 40 MG VIAL IVP SCH ×2 (08:41→21:06)
[2020-01-30] MEDS: VSL#3 PO SCH (08:42)
[2020-01-30] MEDS: TAB-A-VITE PO SCH (08:42)
[2020-01-30] MEDS ORDERED: ZOSYN VIAL 3.375 GRAMS 3.375 G in NS 100 ML IV + SPIKE MINIBAG* 100 ML IV SCH ×5 (09:32→21:00)
[2020-01-30] MEDS ORDERED: LOPRESSOR INJ 5 MG AMP IVP PRN (09:34)
[2020-01-30] MEDS: PULMICORT NEB TX 0.5 MG NEB SCH (09:41)
[2020-01-30] MEDS: DUONEB 0.5 MG/3 MG (3 mL) NEB SCH ×4 (09:41→20:34)
[2020-01-30] MEDS ORDERED: PEPCID 20 MG IV PREMIX* 20 MG/50 ML BAG IV SCH (10:00)
[2020-01-30] MEDS ORDERED: ZITHROMAX INJ 500 MG VIAL 250 MG in NS 250 ML IV 250 ML IV SCH (10:00)
[2020-01-30] MEDS ORDERED: ZITHROMAX INJ 500 MG VIAL IV ONE (10:24)
[2020-01-30] MEDS: D5 NS 1000 ML 1,000 ML IV SCH ×2 (10:37→18:08)
--- NOTE | 2020-01-30 10:48 | PCM.PROG ---
Progress Note Progress Note for Day of Date of Exam: 01/30/20 Subjective Subjective: Post-op Day 2 s/p partial gastrectomy and lysis of adhesions. Patient seen at bedside, and family members also present. Patient had some agitation last night and had to be given another dose of Ativan. He also went into atrial fibrillation with RVR, HR in 160s. He received one dose of Metoprolol 5 mg IV and HR has been in low 100s. Family denies prior hx of atrial fib. He is resting right now. He has NGT and central line in place. He also did become more hypotensive overnight, increased Dopamine to 10mcg. Labs: WBC: 38.4 Hgb 8.9 BUN/Cr: 50/2.71 CXR: similar to prior exam, bilateral airspace disease, Right worse than left. ECHO: EF 40% Plan: follow Dr. Wetzel's recommendations, keep patient NPO, no crushed medications. Will switch IVF to D5NS at 100cc/hr, wean down Dopamine as tolerated to keep MAP > 65. Patient was receiving Zosyn BID, will switch to q8H. Continue azithromax. Will add metoprolol 5 mg IV BID. Increase Ativan to q4H prn for agitation. Monitor AM labs and cultures. Patient remains in a critical state. Family updated at bedside. Critical care time spent 31-74 mins for clinical assessment, reviewing imaging/labs, decision making and documentation. Past Medical Family Social History Past Med/Fam/Surg Hx: No changes since H&P Allergies: Allergies ciprofloxacin Allergy (Verified 01/21/20 22:31) doxycycline Allergy (Verified 01/21/20 22:31) levofloxacin [From Levaquin] Allergy (Verified 01/21/20 22:31) meloxicam [From Mobic] Allergy (Verified 01/21/20 22:31) Review of Systems ROS: No change since H&P Vital Signs and I&O's Vital Signs: Temperature 100.1 F Pulse Rate [Left] 89 Pulse Rate 112 Respiratory Rate 22 Blood Pressure [Left Arm] 117/58 Blood Pressure [Right Arm] 100/49 Blood Pressure 116/54 O2 Sat by Pulse Oximetry 100 Intake and Output: Intake & Output 01/27/20 01/28/20 01/29/20 01/30/20 23:59 23:59 23:59 23:59 Intake Total 2193 / 2193 7920 / 7920 2489 / 2489 973.9 / 973.9 Output Total 350 / 350 3379 / 3379 240 / 240 15 / 15 Balance 1843 / 1843 4541 / 4541 2249 / 2249 958.9 / 958.9 Physical Exam Oriented: Other (sleepy ,resting in bed ) Eyes: Normal Ear: Normal Nose: Normal Throat: Dry Respiratory: Generalized and Diminished Cardiovascular: Tachycardia and Irregular Auscultation: Bowel Sounds: Decreased Tenderness: Mild and Other (CHIN drain noted ) Skin: Decreased Turgur Musculoskeletal: Back:Lumbar, Pelvis and Tender Psychiatric: Agitation Mood Description: Calm Affect: Normal Laboratory and Diagnostics Result Diagrams: 01/30/20 05:15 01/30/20 05:15 Labs: 01/21/20 18:25 Blood Blood Culture - Final 01/21/20 18:28 Blood Blood Culture - Final Laboratory WBC 38.4 X10^3/uL (3.6-10.0) H* 01/30/20 05:15 RBC 2.95 X10^6/uL (4.7-6.0) L 01/30/20 05:15 Hgb 8.9 g/dL (13.5-18.0) L 01/30/20 05:15 Hct 26.9 % (42.0-54.0) L 01/30/20 05:15 MCV 91.2 fL (80.0-100.0) 01/30/20 05:15 MCH 30.0 pg (27.0-34.0) 01/30/20 05:15 MCHC 32.9 g/dL (33.0-35.0) L 01/30/20 05:15 RDW 15.4 % (11.6-16.5) 01/30/20 05:15 Plt Count 300 X10^3/uL (150.0-450.0) 01/30/20 05:15 Plt Count Comment Adequate (ADEQUATE) 01/30/20 05:15 MPV 7.7 fL (7.4-11.0) 01/30/20 05:15 Neut % (Auto) 93.1 % (42.0-75.0) H 01/30/20 05:15 Lymph % (Auto) 2.8 % (21.0-51.0) L 01/30/20 05:15 [place] % (Auto) 3.9 % (0.0-13.0) 01/30/20 05:15 Eos % (Auto) 0.0 % (0.9-2.9) L 01/30/20 05:15 Baso % (Auto) 0.2 % (0.2-1.0) 01/30/20 05:15 Neut # (Auto) 35.7 x10^3/uL (2.2-4.8) H 01/30/20 05:15 Lymph # (Auto) 1.1 X10^3/uL (1.3-2.9) L 01/30/20 05:15 [place] # (Auto) 1.5 x10^3/uL (0.3-0.8) H 01/30/20 05:15 Eos # (Auto) 0.0 x10^3/uL (0.0-0.2) 01/30/20 05:15 Baso # (Auto) 0.1 X10^3/uL (0.0-0.1) 01/30/20 05:15 Absolute Nucleated RBC 0.1 /100WBC 01/30/20 05:15 Total Counted 100 01/30/20 05:15 Neutrophils % (Manual) 79 % (39-76) H 01/30/20 05:15 Band Neutrophils % 8 % (0-10) 01/30/20 05:15 Lymphocytes % (Manual) 11 % (13-43) L 01/30/20 05:15 Monocytes % (Manual) 2 % (4-9) L 01/30/20 05:15 Eosinophils % (Manual) 1 % (0-6) 01/29/20 05:49 Plt Morphology Comment Normal (NORMAL) 01/30/20 05:15 RBC Morphology Normal (NORMAL) 01/30/20 05:15 Hypochromasia Slight A 01/21/20 18:25 Poikilocytosis Slight A 01/21/20 18:25 PT 14.6 SECONDS (11.8-14.3) 01/27/20 09:25 INR Target Range - 01/27/20 09:25 INR 1.17 (0.8-1.3) 01/27/20 09:25 APTT 30.6 SECONDS (22.9-36.5) 01/27/20 09:25 PTT Comment - 01/27/20 09:25 Sample Site Rb 01/28/20 09:29 ABG pH 7.480 (7.35-7.45) H 01/28/20 09:29 ABG pCO2 36.0 mmHg (35.0-45.0) 01/28/20 09:29 ABG pO2 86.0 mmHg (80.0-100.0) 01/28/20 09:29 ABG HCO3 26.8 mmol/L (22-26) H 01/28/20 09:29 ABG O2 Saturation 97.0 % (90-100) 01/28/20 09:29 ABG Base Excess 3.3 mmol/L (-2.0-2.0) H 01/28/20 09:29 Dani Test Na 01/28/20 09:29 A-a Gradient 54.0 mmHg 01/28/20 09:29 FiO2 26.0 01/28/20 09:29 Blood Gas Comments Sarah well 01/28/20 09:29 Sodium 140 mmol/L (136-145) 01/30/20 05:15 Corrected Sodium 141 mmol/L (136-145) 01/30/20 05:15 Potassium 4.3 mmol/L (3.5-5.1) 01/30/20 05:15 Chloride 108 mmol/L (98-107) H 01/30/20 05:15 Carbon Dioxide 23.0 mmol/L (21-32) 01/30/20 05:15 BUN 50 mg/dL (7-18) H 01/30/20 05:15 Creatinine 2.72 mg/dL (0.70-1.30) H 01/30/20 05:15 Est GFR (MDRD) Af Amer 29 (>60) L 01/30/20 05:15 Est GFR (MDRD) Non-Af 24 (>60) L 01/30/20 05:15 Glucose 136 mg/dL (65-99) H 01/30/20 05:15 Lactic Acid 1.4 mmol/L (0.4-2.0) 01/21/20 18:25 Calcium 7.7 mg/dL (8.5-10.1) L 01/30/20 05:15 Corrected Calcium 9.5 mg/dL (8.5-10.1) 01/30/20 05:15 Ferritin 502 ng/mL (26-388) H 01/21/20 18:25 Total Bilirubin 1.10 mg/dL (0.2-1.0) H 01/30/20 05:15 AST 30 Units/L (15-37) 01/30/20 05:15 ALT 23 Units/L (12-78) 01/30/20 05:15 Alkaline Phosphatase 95 Units/L (46-116) 01/30/20 05:15 Creatine Kinase 24 Units/L (39-308) L 01/22/20 05:10 CK-MB (CK-2) 1.0 ng/mL (0-4.0) 01/22/20 05:10 CK/CKMB % Calc 4.2 % (<4) 01/22/20 05:10 Troponin I < 0.02 ng/mL (0-1.5) 01/22/20 05:10 C-Reactive Protein 23.50 mg/L (0-3.0) H 01/27/20 09:25 Total Protein 5.5 g/dL (6.4-8.2) L 01/30/20 05:15 Albumin 1.8 g/dL (3.4-5.0) L 01/30/20 05:15 Globulin 3.7 g/dL (2.5-4.5) 01/30/20 05:15 Albumin/Globulin Ratio 0.5 Ratio (1.1-2.1) L 01/30/20 05:15 Amylase 39 Units/L (25-115) 01/22/20 05:10 Lipase 77 Units/L (73-393) 01/22/20 05:10 Specimen Type Clean catch urine 01/22/20 00:50 Urine Color Yellow (YELLOW) 01/22/20 00:50 Urine Appearance Clear (CLEAR) 01/22/20 00:50 Urine pH 8.0 (5.0 - 8.0) 01/22/20 00:50 Ur Specific [place] 1.010 (1.000-1.030) 01/22/20 00:50 Urine Protein 2+ (NEGATIVE) 01/22/20 00:50 Urine Glucose (UA) Negative (NEGATIVE) 01/22/20 00:50 Urine Ketones Negative (NEGATIVE) 01/22/20 00:50 Urine Occult Blood 2+ (NEGATIVE) 01/22/20 00:50 Urine Nitrite Negative (NEGATIVE) 01/22/20 00:50 Urine Bilirubin Negative (NEGATIVE) 01/22/20 00:50 Urine Urobilinogen Normal (NORMAL) 01/22/20 00:50 Ur Leukocyte Esterase 1+ (NEGATIVE) 01/22/20 00:50 Urine RBC 3-5 /HPF (0-3) A 01/22/20 00:50 Urine WBC 0-2 /HPF (0-5) 01/22/20 00:50 Ur Squamous Epith Cells Few /HPF (NEGATIVE) 01/22/20 00:50 Urine Bacteria Trace /HPF (NEGATIVE) 01/22/20 00:50 Ur Culture Indicated? No/not indicated 01/22/20 00:50 Gastric Fluid pH 4 01/22/20 02:19 Gastric Occult Blood Positive (NEGATIVE) A 01/22/20 02:19 Stool Description Ifob 01/22/20 05:20 Stl Occult Blood (IFOB) Positive (NEGATIVE) A 01/22/20 05:20 Stl C. diff Tox B Gene Negative (NEGATIVE) 01/25/20 18:00 Stl C. diff 027-NAP1-BI Negative (NEGATIVE) 01/25/20 18:00 SARS-CoV-2 (PCR) Negative (NEGATIVE) 01/21/20 23:28 Tissue Pathology To follow 01/28/20 16:34 Miscellaneous Test Covid 19 01/22/20 16:45 Blood Type O POSITIVE 01/27/20 02:10 Antibody Screen Negative 01/27/20 02:10 Crossmatch See Detail 01/27/20 02:10 Plan (1) S/P exploratory laparotomy: Status: Acute (2) Hypotension: Status: Acute Qualifiers: Hypotension type: postprocedural hypotension Qualified Code(s): I95.81 - Postprocedural hypotension (3) Pneumonia: Status: Acute Qualifiers: Laterality: bilateral Lung location: unspecified part of lung Pneumonia type: due to unspecified organism Qualified Code(s): J18.9 - Pneumonia, unspecified organism (4) Hypoxia: Status: Acute (5) GI bleed: Status: Acute Qualifiers: GI bleed type/associated pathology: gastritis Gastritis type: acute gastritis Qualified Code(s): K29.01 - Acute gastritis with bleeding (6) Anemia: Status: Acute Qualifiers: Anemia type: unspecified type Qualified Code(s): D64.9 - Anemia, unspecified (7) Gastritis: Status: Acute Qualifiers: Chronicity: acute Gastritis bleeding: with bleeding Gastritis type: unspecified gastritis Qualified Code(s): K29.01 - Acute gastritis with bleeding (8) Acute renal injury: Status: Acute (9) Duodenal ulcer: Status: Acute (10) Atrial fibrillation: Status: Acute Qualifiers: Atrial fibrillation type: unspecified Qualified Code(s): I48.91 - Unspecified atrial fibrillation
--- NOTE | 2020-01-30 11:07 | DR.PROGNOT ---
Hospital Progress Notes - Progress Note for Day of: Progress Note Date: 01/30/20 - Chief Complaint Chief Complaint: day 2 post op laparotomy , lysis of adhesions . partial gastrectomy , excision of naya duodenal lymph node .. no active bleeding with stable H&H. no more bile drainage in CHIN. still on Dopamine . BUN/Creat high 50/2.7. Albumin 1.8.. LFT normal ..WBC 38.4. moderate bile drainage in CHIN . WBC 35.4. Hgb 9.5 ..lyte normal .. plt normal BUN/Crea 38/1.8. temp 100 - Past Medical Family Social History Past Med/Fam/Surg Hx: No changes since H&P Allergies: Allergies ciprofloxacin Allergy (Verified 01/21/20 22:31) doxycycline Allergy (Verified 01/21/20 22:31) levofloxacin [From Levaquin] Allergy (Verified 01/21/20 22:31) meloxicam [From Mobic] Allergy (Verified 01/21/20 22:31) - Review Of Systems ROS: No change since H&P - Vital Signs Vital Signs: Temperature 100.1 F Pulse Rate [Left] 89 Pulse Rate 112 Respiratory Rate 22 Blood Pressure [Left Arm] 117/58 Blood Pressure [Right Arm] 100/49 Blood Pressure 116/54 O2 Sat by Pulse Oximetry 100 - Physical Exam Oriented: Other (sleepy ,resting in bed) Eyes: Normal Ear: Normal Nose: Normal Throat: Dry Respiratory: Generalized, Diminished Cardiovascular: Tachycardia, Irregular : Normal GI:Auscultation: Decreased GI:Palpation: Normal GI: Tenderness: Mild, Other (CHIN drain noted) Skin: Decreased Turgur Musculoskeletal: Back:Lumbar, Pelvis, Tender Psychiatric: Agitation Mood Description: Calm Affect: Normal Speech Pattern: Inappropriate, Delayed - Laboratory and Diagnostics Result Diagrams: 01/30/20 05:15 01/30/20 05:15 Labs: 01/21/20 18:25 Blood Blood Culture - Final 01/21/20 18:28 Blood Blood Culture - Final Laboratory WBC 38.4 X10^3/uL (3.6-10.0) H* 01/30/20 05:15 RBC 2.95 X10^6/uL (4.7-6.0) L 01/30/20 05:15 Hgb 8.9 g/dL (13.5-18.0) L 01/30/20 05:15 Hct 26.9 % (42.0-54.0) L 01/30/20 05:15 MCV 91.2 fL (80.0-100.0) 01/30/20 05:15 MCH 30.0 pg (27.0-34.0) 01/30/20 05:15 MCHC 32.9 g/dL (33.0-35.0) L 01/30/20 05:15 RDW 15.4 % (11.6-16.5) 01/30/20 05:15 Plt Count 300 X10^3/uL (150.0-450.0) 01/30/20 05:15 Plt Count Comment Adequate (ADEQUATE) 01/30/20 05:15 MPV 7.7 fL (7.4-11.0) 01/30/20 05:15 Neut % (Auto) 93.1 % (42.0-75.0) H 01/30/20 05:15 Lymph % (Auto) 2.8 % (21.0-51.0) L 01/30/20 05:15 [place] % (Auto) 3.9 % (0.0-13.0) 01/30/20 05:15 Eos % (Auto) 0.0 % (0.9-2.9) L 01/30/20 05:15 Baso % (Auto) 0.2 % (0.2-1.0) 01/30/20 05:15 Neut # (Auto) 35.7 x10^3/uL (2.2-4.8) H 01/30/20 05:15 Lymph # (Auto) 1.1 X10^3/uL (1.3-2.9) L 01/30/20 05:15 [place] # (Auto) 1.5 x10^3/uL (0.3-0.8) H 01/30/20 05:15 Eos # (Auto) 0.0 x10^3/uL (0.0-0.2) 01/30/20 05:15 Baso # (Auto) 0.1 X10^3/uL (0.0-0.1) 01/30/20 05:15 Absolute Nucleated RBC 0.1 /100WBC 01/30/20 05:15 Total Counted 100 01/30/20 05:15 Neutrophils % (Manual) 79 % (39-76) H 01/30/20 05:15 Band Neutrophils % 8 % (0-10) 01/30/20 05:15 Lymphocytes % (Manual) 11 % (13-43) L 01/30/20 05:15 Monocytes % (Manual) 2 % (4-9) L 01/30/20 05:15 Eosinophils % (Manual) 1 % (0-6) 01/29/20 05:49 Plt Morphology Comment Normal (NORMAL) 01/30/20 05:15 RBC Morphology Normal (NORMAL) 01/30/20 05:15 Hypochromasia Slight A 01/21/20 18:25 Poikilocytosis Slight A 01/21/20 18:25 PT 14.6 SECONDS (11.8-14.3) 01/27/20 09:25 INR Target Range - 01/27/20 09: INR 1.17 (0.8-1.3) 01/27/20 09: APTT 30.6 SECONDS (22.9-36.5) 01/27/20 09:25 PTT Comment - 01/27/20 09:25 Sample Site Rb 01/28/20 09:29 ABG pH 7.480 (7.35-7.45) H 01/28/20 09:29 ABG pCO2 36.0 mmHg (35.0-45.0) 01/28/20 09:29 ABG pO2 86.0 mmHg (80.0-100.0) 01/28/20 09:29 ABG HCO3 26.8 mmol/L (22-26) H 01/28/20 09:29 ABG O2 Saturation 97.0 % (90-100) 01/28/20 09:29 ABG Base Excess 3.3 mmol/L (-2.0-2.0) H 01/28/20 09:29 Dani Test Na 01/28/20 09:29 A-a Gradient 54.0 mmHg 01/28/20 09:29 FiO2 26.0 01/28/20 09:29 Blood Gas Comments Sarah well 01/28/20 09:29 Sodium 140 mmol/L (136-145) 01/30/20 05:15 Corrected Sodium 141 mmol/L (136-145) 01/30/20 05:15 Potassium 4.3 mmol/L (3.5-5.1) 01/30/20 05:15 Chloride 108 mmol/L (98-107) H 01/30/20 05:15 Carbon Dioxide 23.0 mmol/L (21-32) 01/30/20 05:15 BUN 50 mg/dL (7-18) H 01/30/20 05:15 Creatinine 2.72 mg/dL (0.70-1.30) H 01/30/20 05:15 Est GFR (MDRD) Af Amer 29 (>60) L 01/30/20 05:15 Est GFR (MDRD) Non-Af 24 (>60) L 01/30/20 05:15 Glucose 136 mg/dL (65-99) H 01/30/20 05:15 Lactic Acid 1.4 mmol/L (0.4-2.0) 01/21/20 18:25 Calcium 7.7 mg/dL (8.5-10.1) L 01/30/20 05:15 Corrected Calcium 9.5 mg/dL (8.5-10.1) 01/30/20 05:15 Ferritin 502 ng/mL (26-388) H 01/21/20 18:25 Total Bilirubin 1.10 mg/dL (0.2-1.0) H 01/30/20 05:15 AST 30 Units/L (15-37) 01/30/20 05:15 ALT 23 Units/L (12-78) 01/30/20 05:15 Alkaline Phosphatase 95 Units/L (46-116) 01/30/20 05:15 Creatine Kinase 24 Units/L (39-308) L 01/22/20 05:10 CK-MB (CK-2) 1.0 ng/mL (0-4.0) 01/22/20 05:10 CK/CKMB % Calc 4.2 % (<4) 01/22/20 05:10 Troponin I < 0.02 ng/mL (0-1.5) 01/22/20 05:10 C-Reactive Protein 23.50 mg/L (0-3.0) H 01/27/20 09:25 Total Protein 5.5 g/dL (6.4-8.2) L 01/30/20 05:15 Albumin 1.8 g/dL (3.4-5.0) L 01/30/20 05:15 Globulin 3.7 g/dL (2.5-4.5) 01/30/20 05:15 Albumin/Globulin Ratio 0.5 Ratio (1.1-2.1) L 01/30/20 05:15 Amylase 39 Units/L (25-115) 01/22/20 05:10 Lipase 77 Units/L (73-393) 01/22/20 05:10 Specimen Type Clean catch urine 01/22/20 00:50 Urine Color Yellow (YELLOW) 01/22/20 00:50 Urine Appearance Clear (CLEAR) 01/22/20 00:50 Urine pH 8.0 (5.0 - 8.0) 01/22/20 00:50 Ur Specific [place] 1.010 (1.000-1.030) 01/22/20 00:50 Urine Protein 2+ (NEGATIVE) 01/22/20 00:50 Urine Glucose (UA) Negative (NEGATIVE) 01/22/20 00:50 Urine Ketones Negative (NEGATIVE) 01/22/20 00:50 Urine Occult Blood 2+ (NEGATIVE) 01/22/20 00:50 Urine Nitrite Negative (NEGATIVE) 01/22/20 00:50 Urine Bilirubin Negative (NEGATIVE) 01/22/20 00:50 Urine Urobilinogen Normal (NORMAL) 01/22/20 00:50 Ur Leukocyte Esterase 1+ (NEGATIVE) 01/22/20 00:50 Urine RBC 3-5 /HPF (0-3) A 01/22/20 00:50 Urine WBC 0-2 /HPF (0-5) 01/22/20 00:50 Ur Squamous Epith Cells Few /HPF (NEGATIVE) 01/22/20 00:50 Urine Bacteria Trace /HPF (NEGATIVE) 01/22/20 00:50 Ur Culture Indicated? No/not indicated 01/22/20 00:50 Gastric Fluid pH 4 01/22/20 02:19 Gastric Occult Blood Positive (NEGATIVE) A 01/22/20 02:19 Stool Description Ifob 01/22/20 05:20 Stl Occult Blood (IFOB) Positive (NEGATIVE) A 01/22/20 05:20 Stl C. diff Tox B Gene Negative (NEGATIVE) 01/25/20 18:00 Stl C. diff 027-NAP1-BI Negative (NEGATIVE) 01/25/20 18:00 SARS-CoV-2 (PCR) Negative (NEGATIVE) 01/21/20 23:28 Tissue Pathology To follow 01/28/20 16:34 Miscellaneous Test Covid 19 01/22/20 16:45 Blood Type O POSITIVE 01/27/20 02:10 Antibody Screen Negative 01/27/20 02:10 Crossmatch See Detail 01/27/20 02:10 - Assessment and Plan 1: Post op day 2. exploratory laparotomy . lysis of adhesions . 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 for bleeding and partial obst ructing large penetrating duodenal ulcer with inflammation and scaring . naya duodenal adenopathy .. acute renal injury and hypotention , on Dopamine . NGT could be used for oral meds . - Problem Patient Problems: Patient Problems Atrial fibrillation (Acute) I48.91 Duodenal ulcer (Acute) K26.9 Pyloric ulcer (Acute) K25.9 Acute renal injury (Acute) N17.9 Hypotension (Acute) I95.9 S/P exploratory laparotomy (Acute) Z98.890 Anemia (Acute) D64.9 Hypoxia (Acute) R09.02 Gastritis (Acute) K29.70 GI bleed (Acute) K92.2 Pneumonia (Acute) J18.9
[2020-01-30 11:30] LABS: AMYLASE 94 Units/L (25-115); LIPASE 58 Units/L (73-393)
[2020-01-30] MEDS: ATIVAN INJ 2 MG VIAL IVP PRN ×2 (14:57→23:37)
[2020-01-30] MEDS: LOPRESSOR INJ 5 MG AMP IVP SCH ×2 (15:08→21:06)
[2020-01-31] MEDS: OFIRMEV IV 1000 MG VIAL 1,000 MG/100 ML VIAL IV PRN (01:13)
[2020-01-31] MEDS: D5 NS 1000 ML 1,000 ML IV SCH ×3 (03:00→19:18)
[2020-01-31] MEDS: DILAUDID INJ IVP PRN (05:45)
[2020-01-31] MEDS: VOLTAREN 1 % GEL MULTI DOSE TUBE TOP SCH (05:48)
[2020-01-31 06:32] LABS: ALANINE AMINOTRANSFERASE 23 Units/L (12-78); ALBUMIN 1.6 g/dL (3.4-5.0); ALKALINE PHOSPHATASE 74 Units/L (46-116); ASPARTATE AMINO TRANSFERASE 23 Units/L (15-37); BLOOD UREA NITROGEN 59 mg/dL (7-18); CALCIUM 8.2 mg/dL (8.5-10.1); CARBON DIOXIDE 22.8 mmol/L (21-32); CHLORIDE 109 mmol/L (98-107); COR CA(FOR HYPOALB) 10.1 mg/dL (8.5-10.1); CREATININE 3.25 mg/dL (0.70-1.30); SODIUM 140 mmol/L (136-145); TOTAL PROTEIN 5.5 g/dL (6.4-8.2); eGFR NON BLACK RACES 19 (>60)
[2020-01-31 06:41] LABS: BASOPHILS # (AUTO) 0.1 X10^3/uL (0.0-0.1); BASOPHILS % (AUTO) 0.3 % (0.2-1.0); HEMATOCRIT 23.7 % (42.0-54.0); HEMOGLOBIN 7.9 g/dL (13.5-18.0); LYMPHOCYTES # (AUTO) 0.9 X10^3/uL (1.3-2.9); MEAN CORPUSCULAR HEMOGLOBIN 30.1 pg (27.0-34.0); MEAN CORPUSCULAR HGB CONC 33.1 g/dL (33.0-35.0); MEAN CORPUSCULAR VOLUME 90.8 fL (80.0-100.0); MEAN PLATELET VOLUME 7.7 fL (7.4-11.0); MONOCYTES % (AUTO) 3.1 % (0.0-13.0); NEUTROPHILS # (AUTO) 29.3 x10^3/uL (2.2-4.8); NEUTROPHILS % (AUTO) 93.6 % (42.0-75.0); PLATELET COUNT 280 X10^3/uL (150.0-450.0); RED BLOOD COUNT 2.61 X10^6/uL (4.7-6.0); RED CELL DISTRIBUTION WIDTH 15.4 % (11.6-16.5)
[2020-01-31 07:02] LABS: WHITE BLOOD COUNT 31.4 X10^3/uL (3.6-10.0)
[2020-01-31 07:25] LABS: ANISOCYTOSIS SLIGHT; BAND NEUTROPHILS % 1 % (0-10); HYPOCHROMASIA SLIGHT; PLATELET MORPHOLOGY COMMENT NORMAL (NORMAL)
[2020-01-31] MEDS: PULMICORT NEB TX 0.5 MG NEB SCH (08:05)
[2020-01-31] MEDS: DUONEB 0.5 MG/3 MG (3 mL) NEB SCH (08:05)
[2020-01-31] MEDS: PROTONIX INJ 40 MG VIAL IVP SCH (09:45)
[2020-01-31] MEDS: LOPRESSOR INJ 5 MG AMP IVP SCH (09:45)
[2020-01-31] MEDS ORDERED: VERSED 100 MG in NS 100 ML IV 80 ML IV PRN ×3 (09:47→20:01)
[2020-01-31] MEDS ORDERED: MORPHINE SULFATE PCA 30 MG IVP PRN ×2 (09:47→15:24)
--- NOTE | 2020-01-31 10:07 | PCM.PROG ---
Progress Note - Progress Note for Day of Date of Exam: 01/31/20 - Subjective Subjective: IS BEING TREATED FOR PNEUMONIA WITH HYPOXIA, GI BLEED, GASTRITIS, AND ANEMIA. HE IS DAY 3 STATUS POST EXPLORATORY LAPAROTOMY WITH LYSIS OF ADHESIONS AND PARTIAL GASTRECTOMY WITH R-en Y GASTRO JEJUNOSTOMY FOR BLEEDING AND PARTIAL OBSTRUCTING LARGE PENETRATING DUODENAL ULCER. HIS HEMOGLOBIN HAS HELD STABLE OVER THE WEEKEND, HOWEVER, IT HAS DROPPED TO 7.9 AGAIN THIS MORNING. HIS WAS PLACED ON A DOPAMINE DRIP AFTER SURGERY DUE TO HYPOTENSION. STAFF REPORTS THAT HE CONTINUES TO BE DISORIENTED, CONFUSED, AND RESTLESS. HE CONTINUES TO HAVE BLOODY BOWEL MOVEMENTS. HE ALSO WENT INTO A-FIB WITH RVR OVER THE WEEKEND. NO HISTORY OF A-FIB PRIOR TO THIS HOSPITAL STAY. HE IS LYING IN BED WITH EYES CLOSED ON MORNING ROUNDS. HE IS DIFFICULT TO AROUSE AND MOANS TO PAINFUL STIMULATION. ON EXAMINATION, NG TUBE NOTED TO LOW INTERMITTENT SUCTION. HEART RHYTHM IS IRREGULAR AND TACHYCARDIC. BILATERAL LUNG SOUNDS ARE DIMINISHED. ABDOMEN IS ROUND, SOFT, AND NOTED WITH DIFFUSED TENDERNESS TO PALPATION. CHIN DRAIN NOTED. DECREASED BOWEL SOUNDS NOTED. HIS VITALS THIS MORNING ARE: [id number]%NC-97/41. LABS WERE OBTAINED. ABNORMAL LAB VALUES INCLUDE THE FOLLOWING: WBC 31.4, RBC 2.61, HGB 7.9, HCT 23.7, CHLORIDE 109, BUN 59, CREATININE 3.25, CALCIUM 8.2, TOTAL PROTEIN 5.5, ALBUMIN 1.6. HE IS CURRENTLY RECEIVING D5NS AT 100 ML/HR, DOPAMINE DRIP, ZOSYN 3.375G IV TID, AZITHROMYCIN 250MG IV DAILY, ALBUMIN 25% IV DAILY, PEPCID 20MG IV Q48H, A PROTONIX DRIP, ZOFRAN 4MG IV Q6H PRN, DUONEBS QID, GEODON 10MG IM Q6H PRN, AN EXELON PATCH DAILY, PHENERGAN 12.5MG IM Q6H PRN, LOPRESSOR 5MG IV Q12H, AND HIS HOME MEDICATIONS WERE RESUMED. WE SPOKE WITH FAMILY ABOUT PATIENTS DECLINING CONDITION. FAMILY WISHES FOR PATIENT TO BE PLACED ON COMFORT MEASURES AT THIS TIME AND TO DISCONTINUE NG TUBE AND OTHER TREATMENTS. WE WILL DISCONTINUE ALL MEDICATIONS AT THIS TIME, WITH THE EXCEPTION OF ADDING VERSED DRIP AT 2MG/HR AND MORPHINE DRIP AT 2MG/HR. OTHERWISE, WE WILL CONTINUE TO MONITOR AND MAKE ADJUS TMENTS NECESSARY. - Past Medical Family Social History Past Med/Fam/Surg Hx: No changes since H&P Allergies: Allergies ciprofloxacin Allergy (Verified 01/21/20 22:31) doxycycline Allergy (Verified 01/21/20 22:31) levofloxacin [From Levaquin] Allergy (Verified 01/21/20 22:31) meloxicam [From Mobic] Allergy (Verified 01/21/20 22:31) - Review of Systems ROS: No change since H&P - Vital Signs and I&O's Vital Signs: Temperature 98.7 F Pulse Rate [Left] 89 Pulse Rate 144 Respiratory Rate 20 Blood Pressure [Left Arm] 117/58 Blood Pressure [Right Arm] 100/49 Blood Pressure 97/41 O2 Sat by Pulse Oximetry 100 Intake and Output: Intake & Output 01/28/20 01/29/20 01/30/20 01/31/20 11:59 11:59 11:59 11:59 Intake Total 1348 / 1348 8801 / 8801 2581.9 / 2581.9 1651.1 / 1651.1 Output Total 3599 / 3599 35 / 35 Balance 1348 / 1348 5202 / 5202 2546.9 / 2546.9 1651.1 / 1651.1 - Physical Exam Oriented: Unable to test Eyes: Normal Ear: Normal Nose: Normal Throat: Dry Respiratory: Generalized, Diminished Cardiovascular: Tachycardia, Irregular : Normal Auscultation: Bowel Sounds: Decreased Palpation: Normal Tenderness: Other (CHIN drain noted) Skin: Decreased Turgur Musculoskeletal: Back:Lumbar, Pelvis, Tender Psychiatric: Other (DECREASED RESPONSIVENESS ) Speech Pattern: Inappropriate, Delayed - Laboratory and Diagnostics Result Diagrams: 01/31/20 05:29 01/31/20 05:29 Labs: 01/21/20 18:25 Blood Blood Culture - Final 01/21/20 18:28 Blood Blood Culture - Final Laboratory WBC 31.4 X10^3/uL (3.6-10.0) H* 01/31/20 05:29 RBC 2.61 X10^6/uL (4.7-6.0) L 01/31/20 05:29 Hgb 7.9 g/dL (13.5-18.0) L 01/31/20 05:29 Hct 23.7 % (42.0-54.0) L 01/31/20 05:29 MCV 90.8 fL (80.0-100.0) 01/31/20 05:29 MCH 30.1 pg (27.0-34.0) 01/31/20 05:29 MCHC 33.1 g/dL (33.0-35.0) 01/31/20 05:29 RDW 15.4 % (11.6-16.5) 01/31/20 05:29 Plt Count 280 X10^3/uL (150.0-450.0) 01/31/20 05:29 Plt Count Comment Adequate (ADEQUATE) 01/31/20 05:29 MPV 7.7 fL (7.4-11.0) 01/31/20 05:29 Neut % (Auto) 93.6 % (42.0-75.0) H 01/31/20 05:29 Lymph % (Auto) 3.0 % (21.0-51.0) L 01/31/20 05:29 [place] % (Auto) 3.1 % (0.0-13.0) 01/31/20 05:29 Eos % (Auto) 0.0 % (0.9-2.9) L 01/31/20 05:29 Baso % (Auto) 0.3 % (0.2-1.0) 01/31/20 05:29 Neut # (Auto) 29.3 x10^3/uL (2.2-4.8) H 01/31/20 05:29 Lymph # (Auto) 0.9 X10^3/uL (1.3-2.9) L 01/31/20 05:29 [place] # (Auto) 1.0 x10^3/uL (0.3-0.8) H 01/31/20 05:29 Eos # (Auto) 0.0 x10^3/uL (0.0-0.2) 01/31/20 05:29 Baso # (Auto) 0.1 X10^3/uL (0.0-0.1) 01/31/20 05:29 Absolute Nucleated RBC 0.0 /100WBC 01/31/20 05:29 Total Counted 100 01/31/20 05:29 Neutrophils % (Manual) 93 % (39-76) H 01/31/20 05:29 Band Neutrophils % 1 % (0-10) 01/31/20 05:29 Lymphocytes % (Manual) 4 % (13-43) L 01/31/20 05:29 Monocytes % (Manual) 2 % (4-9) L 01/31/20 05:29 Eosinophils % (Manual) 1 % (0-6) 01/29/20 05:49 Plt Morphology Comment Normal (NORMAL) 01/31/20 05:29 RBC Morphology Abnormal (NORMAL) 01/31/20 05:29 Hypochromasia Slight A 01/31/20 05:29 Poikilocytosis Slight A 01/21/20 18:25 Anisocytosis Slight A 01/31/20 05:29 PT 14.6 SECONDS (11.8-14.3) 01/27/20 09:25 INR Target Range - 01/27/20 09:25 INR 1.17 (0.8-1.3) 01/27/20 09:25 APTT 30.6 SECONDS (22.9-36.5) 01/27/20 09:25 PTT Comment - 01/27/20 09:25 Sample Site Rb 01/28/20 09:29 ABG pH 7.480 (7.35-7.45) H 01/28/20 09:29 ABG pCO2 36.0 mmHg (35.0-45.0) 01/28/20 09:29 ABG pO2 86.0 mmHg (80.0-100.0) 01/28/20 09:29 ABG HCO3 26.8 mmol/L (22-26) H 01/28/20 09:29 ABG O2 Saturation 97.0 % (90-100) 01/28/20 09:29 ABG Base Excess 3.3 mmol/L (-2.0-2.0) H 01/28/20 09:29 Dani Test Na 01/28/20 09:29 A-a Gradient 54.0 mmHg 01/28/20 09:29 FiO2 26.0 01/28/20 09:29 Blood Gas Comments Sarah well 01/28/20 09:29 Sodium 140 mmol/L (136-145) 01/31/20 05:29 Corrected Sodium TNP 01/31/20 05:29 Potassium 4.0 mmol/L (3.5-5.1) 01/31/20 05:29 Chloride 109 mmol/L (98-107) H 01/31/20 05:29 Carbon Dioxide 22.8 mmol/L (21-32) 01/31/20 05:29 BUN 59 mg/dL (7-18) H 01/31/20 05:29 Creatinine 3.25 mg/dL (0.70-1.30) H 01/31/20 05:29 Est GFR (MDRD) Af Amer 23 (>60) L 01/31/20 05:29 Est GFR (MDRD) Non-Af 19 (>60) L 01/31/20 05:29 Glucose 92 mg/dL (65-99) 01/31/20 05:29 Lactic Acid 1.4 mmol/L (0.4-2.0) 01/21/20 18:25 Calcium 8.2 mg/dL (8.5-10.1) L 01/31/20 05:29 Corrected Calcium 10.1 mg/dL (8.5-10.1) 01/31/20 05:29 Ferritin 502 ng/mL (26-388) H 01/21/20 18:25 Total Bilirubin 0.50 mg/dL (0.2-1.0) 01/31/20 05:29 AST 23 Units/L (15-37) 01/31/20 05:29 ALT 23 Units/L (12-78) 01/31/20 05:29 Alkaline Phosphatase 74 Units/L (46-116) 01/31/20 05:29 Creatine Kinase 24 Units/L (39-308) L 01/22/20 05:10 CK-MB (CK-2) 1.0 ng/mL (0-4.0) 01/22/20 05:10 CK/CKMB % Calc 4.2 % (<4) 01/22/20 05:10 Troponin I < 0.02 ng/mL (0-1.5) 01/22/20 05:10 C-Reactive Protein 23.50 mg/L (0-3.0) H 01/27/20 09:25 Total Protein 5.5 g/dL (6.4-8.2) L 01/31/20 05:29 Albumin 1.6 g/dL (3.4-5.0) L 01/31/20 05:29 Globulin 3.9 g/dL (2.5-4.5) 01/31/20 05:29 Albumin/Globulin Ratio 0.4 Ratio (1.1-2.1) L 01/31/20 05:29 Amylase 94 Units/L (25-115) 01/30/20 05:15 Lipase 58 Units/L (73-393) L 01/30/20 05:15 Specimen Type Clean catch urine 01/22/20 00:50 Urine Color Yellow (YELLOW) 01/22/20 00:50 Urine Appearance Clear (CLEAR) 01/22/20 00:50 Urine pH 8.0 (5.0 - 8.0) 01/22/20 00:50 Ur Specific [place] 1.010 (1.000-1.030) 01/22/20 00:50 Urine Protein 2+ (NEGATIVE) 01/22/20 00:50 Urine Glucose (UA) Negative (NEGATIVE) 01/22/20 00:50 Urine Ketones Negative (NEGATIVE) 01/22/20 00:50 Urine Occult Blood 2+ (NEGATIVE) 01/22/20 00:50 Urine Nitrite Negative (NEGATIVE) 01/22/20 00:50 Urine Bilirubin Negative (NEGATIVE) 01/22/20 00:50 Urine Urobilinogen Normal (NORMAL) 01/22/20 00:50 Ur Leukocyte Esterase 1+ (NEGATIVE) 01/22/20 00:50 Urine RBC 3-5 /HPF (0-3) A 01/22/20 00:50 Urine WBC 0-2 /HPF (0-5) 01/22/20 00:50 Ur Squamous Epith Cells Few /HPF (NEGATIVE) 01/22/20 00:50 Urine Bacteria Trace /HPF (NEGATIVE) 01/22/20 00:50 Ur Culture Indicated? No/not indicated 01/22/20 00:50 Gastric Fluid pH 4 01/22/20 02:19 Gastric Occult Blood Positive (NEGATIVE) A 01/22/20 02:19 Stool Description Ifob 01/22/20 05:20 Stl Occult Blood (IFOB) Positive (NEGATIVE) A 01/22/20 05:20 Stl C. diff Tox B Gene Negative (NEGATIVE) 01/25/20 18:00 Stl C. diff [id number] Negative (NEGATIVE) 01/25/20 18:00 SARS-CoV-2 (PCR) Negative (NEGATIVE) 01/21/20 23:28 Tissue Pathology To follow 01/28/20 16:34 Miscellaneous Test Covid 19 01/22/20 16:45 Blood Type O POSITIVE 01/27/20 02:10 Antibody Screen Negative 01/27/20 02:10 Crossmatch See Detail 01/27/20 02:10 - Plan (1) Pneumonia Status: Acute Qualifiers: Pneumonia type: due to unspecified organism Laterality: bilateral Lung l ocation: unspecified part of lung Qualified Code(s): J18.9 - Pneumonia, unspecified organism Plan: COMFORT MEASURES, VERSED DRIP, MORPHINE DRIP, CONTINUE TO MONITOR (2) Hypoxia Status: Acute (3) GI bleed Status: Acute Qualifiers: GI bleed type/associated pathology: gastritis Gastritis type: acute gastritis Qualified Code(s): K29.01 - Acute gastritis with bleeding (4) Anemia Status: Acute Qualifiers: Anemia type: unspecified type Qualified Code(s): D64.9 - Anemia, unspecified Plan: CONTINUE TO MONITOR (5) Gastritis Status: Acute Qualifiers: Gastritis type: unspecified gastritis Chronicity: acute Gastritis bleedi ng: with bleeding Qualified Code(s): K29.01 - Acute gastritis with bleeding
[2020-01-31] MEDS: MORPHINE SULFATE PCA 30 MG IVP PRN (21:23)
[2020-02-01 00:20] VITALS: BP 72/47
[2020-02-01] MEDS: MORPHINE SULFATE PCA 30 MG IVP PRN (00:38)
[2020-02-01] MEDS ORDERED: VERSED 100 MG in NS 100 ML IV 80 ML IV PRN (00:39)
[2020-02-01] MEDS ORDERED: MORPHINE SULFATE PCA 30 MG IVP PRN (00:40)
[2020-02-01] MEDS: D5 NS 1000 ML 1,000 ML IV SCH (02:00)
== END 2020-02-01 04:30 | disposition expired | DRG 193 ==
LOC: ER 17:33 → ICU 23:42 → MED/SURG 01-27 22:45
PROVIDERS: ADMIT Internal Medicine; ATTEND Internal Medicine
PROC: GASTERC (ICD-10-PCS; 2020-01-28 09:40)
DX: J18.8 Other pneumonia, unspecified organism; R94.31 Abnormal electrocardiogram [ECG] [EKG]; R10.2 Pelvic and perineal pain; M85.80 Other specified disorders of bone density and structure, unspecified site; I95.81 Postprocedural hypotension; K44.9 Diaphragmatic hernia without obstruction or gangrene; Z66 Do not resuscitate; M54.5 Low back pain; K25.0 Acute gastric ulcer with hemorrhage; R79.82 Elevated C-reactive protein (CRP); W18.39XA Other fall on same level, initial encounter; E86.0 Dehydration; N17.8 Other acute kidney failure; J90 Pleural effusion, not elsewhere classified; R09.02 Hypoxemia; Z78.1 Physical restraint status; Y92.129 Unspecified place in nursing home as the place of occurrence of the external cause; Z20.828 Contact with and (suspected) exposure to other viral communicable diseases; D62 Acute posthemorrhagic anemia; I48.91 Unspecified atrial fibrillation